=== PATIENT | female | born 2000 | race Caucasian/White ===

== ENCOUNTER 2023-01-07 20:31 | Emergency (ER) | payer MEDICAID, SELFPAY ==
[2023-01-07 20:43] VITALS: BP 128/78; PULSE 97; RESP 18; TEMP 37; O2SAT 97; BMI 27.4
--- NOTE | 2023-01-07 20:57 | ED.GENADUL1 ---
HPI - General Adult General Chief complaint: Overdose Stated complaint: strep throat positive thinks she took too much Tyl Time Seen by Provider: 01/07/23 20:51 Source: patient Mode of arrival: walk-in History of Present Illness HPI narrative: Patient is a 22-year-old female who presents to the emergency department with concern that she may have overdosed on Tylenol accidentally. She states she was diagnosed with strep throat this morning by an outpatient strep screen. She states for the last two days she has been taking Tylenol every three hours and has been taking 2-3 tablets of the 500 mg tabs. She states she has taken four doses of Tylenol today, most recent dosage was six hours ago. She guesses that she may have taken 4500mg-6000mg today. She was seen at the [place] emergency department earlier today but states they did not do any testing and she is very concerned because she has had nausea and vomiting as well as body aches. She has been having symptoms of strep throat for the last two days, she is not concerned for . She reports some diffuse upper abdominal pain. Related Data Previous Rx's Medication Instructions Recorded ondansetron 4 mg disintegrating 4 mg PO Q6H PRN nausea and 01/07/23 tablet vomiting #12 tabs Allergies Allergy/AdvReac Type Severity Reaction Status Date / Time No Known Drug Allergies Allergy Verified 01/07/23 20:51 Review of Systems ROS Constitutional Denies: fever or chills Ears, nose, mouth, and throat Reports: throat pain Cardiovascular Denies: chest pain Respiratory Denies: shortness of breath or cough Gastrointestinal Reports: abdominal pain, nausea and vomiting Musculoskeletal Denies: back pain Integumentary/Breast Denies: rash Neurological Denies: headache Hematologic/Lymphatic Denies: easy bruising [facility] Social History Smoking status: Current every day smoker Exam Narrative Exam Narrative: Gen.: Awake, alert, in no distress Head: Normocephalic, atraumatic ENT: Moist mucous membranes Respiratory: No respiratory distress, lungs clear bilaterally Cardio: Regular rate and rhythm Gastrointestinal: Abdomen is soft, nondistended and mildly tender to palpation in the bilateral upper abdomen Extremities: Moves extremities equally, no injuries noted Psych: Normal mood and affect Neuro: No focal neuro deficit Skin: Warm, dry, intact Constitutional Vital Signs, click to edit/add: Last Vital Signs Temp 98.6 F 01/07/23 20:43 Pulse 97 H 01/07/23 20:43 Resp 18 01/07/23 20:43 BP 128/78 01/07/23 20:43 Pulse Ox 97 01/07/23 20:43 O2 Del Method Room Air 01/07/23 20:43 Course Vital Signs Vital signs: Vital Signs Temperature 98.6 F 01/07/23 20:43 Pulse Rate 97 H 01/07/23 20:43 Respiratory Rate 18 01/07/23 20:43 Blood Pressure 128/78 01/07/23 20:43 Pulse Oximetry 97 01/07/23 20:43 Oxygen Delivery Method Room Air 01/07/23 20:43 Temperature 98.6 F 01/07/23 20:43 Pulse Rate 97 H 01/07/23 20:43 Respiratory Rate 18 01/07/23 20:43 Blood Pressure 128/78 01/07/23 20:43 Pulse Oximetry 97 01/07/23 20:43 Oxygen Delivery Method Room Air 01/07/23 20:43 Medical Decision Making MDM Narrative Medical decision making narrative: Case was discussed with poison control, labs and EKG were obtained. Patient was treated with Zofran for nausea. She had no episodes of emesis in the emergency department. Vital signs are stable. LFTs, electrolytes, kidney function are all within normal limits. Patient has no salicylates or acetaminophen in her system on blood labs. Case was again discussed with poison control and there is no further treatment needed. Patient will be discharged home with Zofran as needed. A dose of Decadron was given prior to discharge. Return to the Emergency Room if symptoms change or worsen. Medical Records Medical records reviewed: Yes I reviewed the patient's medical records Lab Data Lab results reviewed: Yes I reviewed the patient's lab results Labs: Lab Results 01/07/23 Range/Units 21:14 WBC 20.7 H (4.0-11.0) 10^3/uL RBC 4.62 (4.20-5.40) 10^6/uL Hgb 13.8 (12.0-16.0) g/dL Hct 41.8 (36.0-48.0) % MCV 90.5 (81.0-99.0) fL MCH 29.9 (26.7-34.0) pg MCHC 33.0 (29.9-35.2) g/dL RDW 12.9 (11.0-15.0) % Plt Count 455 H (150-450) 10^3/uL MPV 9.2 L (9.5-13.5) fL Neut % (Auto) 95.5 H (43.0-75.0) % Lymph % (Auto) 2.2 L (20.5-60.0) % [place] % (Auto) 1.7 (1.7-12.0) % Eos % (Auto) 0.0 L (0.9-7.0) % Baso % (Auto) 0.1 L (0.2-2.0) % Neut # (Auto) 19.8 H (1.4-6.5) 10^3/uL Lymph # (Auto) 0.5 L (1.2-3.8) 10^3/uL [place] # (Auto) 0.4 (0.3-0.8) 10^3/uL Eos # (Auto) 0.0 (0.0-0.7) 10^3/uL Baso # (Auto) 0.0 (0.0-0.1) 10^3/uL Abs Immat Gran (auto) 0.10 H (0.00-0.03) 10^3/uL Imm/Tot Granulo (auto) 0.5 (0.0-0.5) % Sodium 136 (136-145) mmol/L Potassium 3.6 (3.5-5.1) mmol/L Chloride 101 (98-107) mmol/L Carbon Dioxide 23.3 (21.0-32.0) mmol/L Anion Gap 15.3 BUN 4.0 L (7.0-18.0) mg/dL Creatinine 0.72 (0.55-1.02) mg/dL Est GFR ( Amer) >60 (>=60) Est GFR (Non-Af Amer) >60 (>=60) BUN/Creatinine Ratio 5.6 Glucose 117 H (74-106) mg/dL Calcium 9.5 (8.5-10.1) mg/dL Total Bilirubin 1.0 (0.2-1.0) mg/dL AST 15 (15-37) U/L ALT 21 (14-59) U/L Alkaline Phosphatase 72 (46-116) U/L Total Protein 8.4 H (6.4-8.2) g/dL Albumin 4.3 (3.4-5.0) g/dL Globulin 4.1 g/dL Albumin/Globulin Ratio 1.0 Serum HCG, Qual Negative (NEGATIVE) Salicylates <2.8 (<=19.9) mg/dL Acetaminophen <2.0 L (10.0-30.0) ug/mL ECG Data Attestation: I personally reviewed and interpreted this ECG as follows: (Normal sinus rhythm at a rate of ninety-nine, no acute ST elevation or ectopy. EKG reviewed by attending physician) Discharge Plan Discharge Chief Complaint: Overdose Clinical Impression: Drug ingestion, accidental Patient Disposition: Home, Self-Care Time of Disposition Decision: 21:57 Condition: Good Prescriptions / Home Meds: New ondansetron 4 mg tablet,disintegrating 4 mg PO Q6H PRN (Reason: nausea and vomiting) Qty: 12 0RF Instructions: Ibuprofen (By mouth), Strep Throat (ED), Acute Nausea and Vomiting (ED) Stand Alone Forms: Portal Instructions Referrals: Physician,Non-Staff, MD [Primary Care Provider] - 1 week
--- NOTE | 2023-01-07 21:07 | ECG_ITS ---
[facility] Test Date: 2023-01-07 Pat Name: CARYN JERRY Department: Room: - Gender: Female Access Clinician: : [id number] Requested By: [id number] Order Number: [id number] Reading MD: TONY SINCLAIR Measurements Intervals [place] Rate: 100 P: 62 UT: 136 QRS: 61 QRSD: 86 T: 56 QT: 344 QTc: 400 Interpretive Statements 1100 Sinus tachycardia 9110 normal ECG No previous ECG available for comparison Electronically Signed On 01-08-2023 7:05:09 EDT by TONY SINCLAIR
--- NOTE | 2023-01-07 21:10 | PC.NURSE ---
Patient thinks she might have accidently overdosed on tylenol. patient was recently seen at [facility] around 2pm for the same thing. she was diagnosed with strep throat this morning. patient has been taking 1000-1500mg of Tylenol every 3 hours for pain in throat with last dose being around 2pm. patient c/o abdomiinal pain, and vomiting. states she has not been able to eat much since having the strep throat. patient believes she took 4 doses in the last 24 hours. would like a second opinion. patient states abdominal pain does feel better since being seen this morning. poison control contacted. recommends patient have cmp, tylenol level, and ekg done.
[2023-01-07 21:24] LABS: Basophils Percent Auto 0.1 % (0.2-2.0); Hematocrit 41.8 % (36.0-48.0); Hemoglobin 13.8 g/dL (12.0-16.0); Immature Granulocytes Pct Auto 0.5 % (0.0-0.5); Lymphocytes Absolute Auto 0.5 10^3/uL (1.2-3.8); Lymphocytes Percent Auto 2.2 % (20.5-60.0); Mean Corpuscular Hemoglobin 29.9 pg (26.7-34.0); Mean Corpuscular Volume 90.5 fL (81.0-99.0); Mean Platelet Volume 9.2 fL (9.5-13.5); Monocytes Absolute Auto 0.4 10^3/uL (0.3-0.8); Monocytes Percent Auto 1.7 % (1.7-12.0); Neutrophils Absolute Auto 19.8 10^3/uL (1.4-6.5); Neutrophils Percent Auto 95.5 % (43.0-75.0); Platelet Count 455 10^3/uL (150-450); Red Blood Count 4.62 10^6/uL (4.20-5.40); Red Cell Distribution Width 12.9 % (11.0-15.0); White Blood Count 20.7 10^3/uL (4.0-11.0)
[2023-01-07] MEDS: ONDANSETRON 4 MG RAPDIS TABLET SL (21:25)
[2023-01-07 21:33] LABS: HCG Qualitative NEGATIVE (NEGATIVE)
[2023-01-07 21:42] LABS: Alanine Aminotransferase 21 U/L (14-59); Albumin Level 4.3 g/dL (3.4-5.0); Alkaline Phosphatase 72 U/L (46-116); Anion Gap 15.3; Aspartate Amino Transferase 15 U/L (15-37); BUN Creatinine Ratio 5.6; Calcium 9.5 mg/dL (8.5-10.1); Carbon Dioxide 23.3 mmol/L (21.0-32.0); Chloride 101 mmol/L (98-107); Estimated GFR (African America >60 (>=60); Estimated GFR (Non-African Ame >60 (>=60); Globulin 4.1 g/dL; Glucose 117 mg/dL (74-106); Potassium 3.6 mmol/L (3.5-5.1); Sodium 136 mmol/L (136-145); Total Protein 8.4 g/dL (6.4-8.2)
[2023-01-07 21:45] LABS: Acetaminophen <2.0 ug/mL (10.0-30.0)
[2023-01-07 21:46] LABS: Salicylate <2.8 mg/dL (<=19.9)
[2023-01-07] MEDS: IBUPROFEN 600 MG TABLET PO (22:12)
[2023-01-07] MEDS: DEXAMETHASONE SODIUM PHOSPHATE 10 MG/ML VIAL PO (22:12)
== END 2023-01-07 22:00 | disposition home or self-care (01) ==
PROVIDERS: Physician Assistant; Emergency Provider Emergency Medicine
DX: T39.1X1A Poisoning by 4-Aminophenol derivatives, accidental (unintentional), initial encounter (principal); F17.210 Nicotine dependence, cigarettes, uncomplicated
CPT/HCPCS: 36415; 80053; 80179; 80329; 84703; 85025; 93005; 99284; J1100

== ENCOUNTER 2023-01-11 23:27 | Emergency (ER) | payer MEDICAID, SELFPAY ==
[2023-01-11 23:33] VITALS: BP 127/93; PULSE 103; RESP 16; TEMP 36.8; O2SAT 99; BMI 27.4
--- NOTE | 2023-01-11 23:58 | ED_ITS ---
HPI - Ear Problem General Chief complaint: Ear Stated complaint: LEFT EAR PAIN Time Seen by Provider: 01/11/23 23:50 Source: patient Mode of arrival: walk-in Limitations: no limitations History of Present Illness HPI Narrative: has been on cephalexin since last week for strep infection. The strep infection feels better but now has left ear pain and pressure. no dizziness or nausea. MD Complaint: Reports ear pain Related Data Home Medications Medication Instructions Recorded Confirmed albuterol sulfate 90 mcg/actuation 2 puff inhalation Q6H PRN 01/11/23 01/11/23 aerosol inhaler (Ventolin HFA) shortness of breath or wheezing cephalexin 500 mg capsule 500 mg PO Q8H 01/11/23 01/11/23 Previous Rx's Medication Instructions Recorded ondansetron 4 mg disintegrating 4 mg PO Q6H PRN nausea and 01/07/23 tablet vomiting #12 tabs Allergies Allergy/AdvReac Type Severity Reaction Status Date / Time No Known Drug Allergies Allergy Verified 01/11/23 23:37 Review of Systems ROS Status of ROS 10 or more systems reviewed and unremarkable except as noted in history and below [facility] Social History Smoking status: Current every day smoker Exam Constitutional Vital Signs, click to edit/add: Last Vital Signs Temp 98.3 F 01/11/23 23:33 Pulse 103 H 01/11/23 23:33 Resp 16 01/11/23 23:33 BP 127/93 H 01/11/23 23:33 Pulse Ox 99 01/11/23 23:33 O2 Del Method Room Air 01/11/23 23:33 Common normals: no apparent distress, average body habitus, oriented x3, healthy appearing and alert HENPA Common normals: normocephalic Other: left TM bulging and red Eye Common normals: PERRL, EOMs intact bilaterally, conjunctivae normal and no scleral icterus Respiratory Common normals: normal respiratory effort, no retractions and no use of accessory muscles Cardio Common normals: regular rate, regular rhythm, S1 normal heart sound and S2 normal heart sound GI Common normals: Normal to inspection, nondistended, normoactive bowel sounds present and soft to palpation Extremity Common normals: normal to inspection and full ROM Neuro Common normals: oriented x3, CN's II-XII intact bilaterally, moves all extremities and no focal motor deficits Psych Appearance: grossly normal Course Vital Signs Vital signs: Vital Signs Temperature 98.3 F 01/11/23 23:33 Pulse Rate 103 H 01/11/23 23:33 Respiratory Rate 16 01/11/23 23:33 Blood Pressure 127/93 H 01/11/23 23:33 Pulse Oximetry 99 01/11/23 23:33 Oxygen Delivery Method Room Air 01/11/23 23:33 Temperature 98.3 F 01/11/23 23:33 Pulse Rate 103 H 01/11/23 23:33 Respiratory Rate 16 01/11/23 23:33 Blood Pressure 127/93 H 01/11/23 23:33 Pulse Oximetry 99 01/11/23 23:33 Oxygen Delivery Method Room Air 01/11/23 23:33 Medical Decision Making MDM Narrative Medical decision making narrative: presents with left ear pain. Found to have otitis media. Given dose of Augmentin and advised to d/c Cephalexin she was on for strep throat. her throat is feeling better. She is to follow up with her doctor in a couple of days. No headache or dizziness Discharge Plan Discharge Chief Complaint: Ear Clinical Impression: Otitis media Patient Disposition: Home, Self-Care Prescriptions / Home Meds: No Action albuterol sulfate [Ventolin HFA] 90 mcg/actuation HFA aerosol inhaler 2 puff INHALATION Q6H PRN (Reason: shortness of breath or wheezing) cephalexin 500 mg capsule 500 mg PO Q8H ondansetron 4 mg tablet,disintegrating 4 mg PO Q6H PRN (Reason: nausea and vomiting) Qty: 12 0RF Instructions: Ear Infection (ED) Additional Instructions: follow up with your doctor in a couple of days for recheck. discontinue Cephalexin. Stand Alone Forms: Portal Instructions Referrals: Physician,Non-Staff, MD [Primary Care Provider] - 1 week
[2023-01-12] MEDS: AMOXICILLIN/POTASSIUM CLAV 1 TAB TABLET PO (00:08)
== END 2023-01-12 00:22 | disposition home or self-care (01) ==
PROVIDERS: Emergency Provider Internal Medicine
DX: H66.92 Otitis media, unspecified, left ear (principal); F17.210 Nicotine dependence, cigarettes, uncomplicated
CPT/HCPCS: 99283

== ENCOUNTER 2023-03-09 12:32 | Emergency (ER) | payer MEDICAID, SELFPAY ==
[2023-03-09 12:35] VITALS: BP 131/89; PULSE 91; RESP 18; TEMP 36.6; O2SAT 100; BMI 29.2
[2023-03-09 12:57] LABS: Basophils Absolute Auto 0.1 10^3/uL (0.0-0.1); Basophils Percent Auto 0.8 % (0.2-2.0); Eosinophils Absolute Auto 0.2 10^3/uL (0.0-0.7); Hematocrit 39.1 % (36.0-48.0); Hemoglobin 12.4 g/dL (12.0-16.0); Immature Granulocytes Abs Auto 0.02 10^3/uL (0.00-0.03); Immature Granulocytes Pct Auto 0.3 % (0.0-0.5); Lymphocytes Absolute Auto 1.9 10^3/uL (1.2-3.8); Mean Corpuscular HGB Conc 31.7 g/dL (29.9-35.2); Mean Corpuscular Hemoglobin 29.5 pg (26.7-34.0); Mean Corpuscular Volume 93.1 fL (81.0-99.0); Mean Platelet Volume 9.3 fL (9.5-13.5); Monocytes Absolute Auto 0.5 10^3/uL (0.3-0.8); Monocytes Percent Auto 7.2 % (1.7-12.0); Neutrophils Absolute Auto 4.8 10^3/uL (1.4-6.5); Neutrophils Percent Auto 63.7 % (43.0-75.0); Platelet Count 475 10^3/uL (150-450); White Blood Count 7.5 10^3/uL (4.0-11.0)
[2023-03-09 13:20] LABS: Anion Gap 11.5; BUN Creatinine Ratio 16.5; Calcium 8.5 mg/dL (8.5-10.1); Carbon Dioxide 25.1 mmol/L (21.0-32.0); Chloride 106 mmol/L (98-107); Estimated GFR (African America >60 (>=60); Estimated GFR (Non-African Ame >60 (>=60); Glucose 80 mg/dL (74-106); HCG Quantitative 119 mIU/mL; Potassium 3.6 mmol/L (3.5-5.1); Sodium 139 mmol/L (136-145)
--- NOTE | 2023-03-09 13:47 | ED.PREGNANC1 ---
HPI - General Chief complaint: OB/Uterine Contractions Stated complaint: ISSUES 4-5 WEEKS Time Seen by Provider: 03/09/23 12:40 Source: patient Mode of arrival: walk-in History of Present Illness HPI Narrative: 23-year-old female two para one presents for light pink bleeding. Two days ago she was at another hospital and had a negative ultrasound and a hCG titer of sixty-seven. She doesn't complain of pain or cramping and the bleeding is much less than a regular period. She was directed here by her [employer] office. No fever or injury. Related Data Home Medications Medication Instructions Recorded Confirmed albuterol sulfate 90 mcg/actuation 2 puff inhalation Q6H PRN 01/11/23 01/11/23 aerosol inhaler (Ventolin HFA) shortness of breath or wheezing cephalexin 500 mg capsule 500 mg PO Q8H 01/11/23 01/11/23 Previous Rx's Medication Instructions Recorded ondansetron 4 mg disintegrating 4 mg PO Q6H PRN nausea and 01/07/23 tablet vomiting #12 tabs Allergies Allergy/AdvReac Type Severity Reaction Status Date / Time No Known Drug Allergies Allergy Verified 01/11/23 23:37 Review of Systems ROS Narrative A ten point review of systems is negative except as noted above. PFSH PFSH Social History Smoking status: Current some day smoker Exam Narrative Exam Narrative: Nurses note and vital signs reviewed and patient is not hypoxic. General: The patient appears well and in no apparent distress. Patient is resting comfortably on cart. Skin: Warm, dry, no pallor noted. There is no rash noted. Head: Normocephalic, atraumatic Eye: Normal conjunctiva, no drainage Ears, Nose, Mouth, and Throat: oral mucosa is moist. Nares patent. Cardiovascular: Regular Rate and Rhythm Respiratory: Patient is in no distress, no accessory muscle use, lungs are clear to auscultation, no wheezing, rales or rhonchi Back: non-tender, no CVA tenderness bilaterally to percussion. GI: soft and nontender Musculoskeletal: The patient has no evidence of calf tenderness, no pitting edema, symmetrical pulses noted bilaterally Neurological: A&O, normal speech Psychiatric: Cooperative Constitutional Vital Signs, click to edit/add: Last Vital Signs Temp 97.8 F 03/09/23 12:35 Pulse 91 H 03/09/23 12:35 Resp 18 03/09/23 12:35 BP 131/89 03/09/23 12:35 Pulse Ox 100 03/09/23 12:35 Course Vital Signs Vital signs: Vital Signs Temperature 97.8 F 03/09/23 12:35 Pulse Rate 91 H 03/09/23 12:35 Respiratory Rate 18 03/09/23 12:35 Blood Pressure 131/89 03/09/23 12:35 Pulse Oximetry 100 03/09/23 12:35 Temperature 97.8 F 03/09/23 12:35 Pulse Rate 91 H 03/09/23 12:35 Respiratory Rate 18 03/09/23 12:35 Blood Pressure 131/89 03/09/23 12:35 Pulse Oximetry 100 03/09/23 12:35 MDM - OB/Uterine Contractions MDM Narrative Medical decision making narrative: today's hCG titer is 119, compared to 67 two days ago but that was at another facility. Case discussed with Dr. De La Cruz and the patient will have repeat titer drawn in two days. This hospital. Follow-up with him. Treatment diagnosis and follow-up were discussed with the patient. At this point I've no clinical suspicion of ectopic . Differential Diagnosis Differential diagnosis: Likely other (, vaginal bleeding and , miscarriage) Medical Records Attestation: I reviewed the patient's medical records. Lab Data Attestation: I reviewed the patient's lab results. Labs: Lab Results 03/09/23 Range/Units 12:50 WBC 7.5 (4.0-11.0) 10^3/uL RBC 4.20 (4.20-5.40) 10^6/uL Hgb 12.4 (12.0-16.0) g/dL Hct 39.1 (36.0-48.0) % MCV 93.1 (81.0-99.0) fL MCH 29.5 (26.7-34.0) pg MCHC 31.7 (29.9-35.2) g/dL RDW 13.0 (11.0-15.0) % Plt Count 475 H (150-450) 10^3/uL MPV 9.3 L (9.5-13.5) fL Neut % (Auto) 63.7 (43.0-75.0) % Lymph % (Auto) 26.0 (20.5-60.0) % [place] % (Auto) 7.2 (1.7-12.0) % Eos % (Auto) 2.0 (0.9-7.0) % Baso % (Auto) 0.8 (0.2-2.0) % Neut # (Auto) 4.8 (1.4-6.5) 10^3/uL Lymph # (Auto) 1.9 (1.2-3.8) 10^3/uL [place] # (Auto) 0.5 (0.3-0.8) 10^3/uL Eos # (Auto) 0.2 (0.0-0.7) 10^3/uL Baso # (Auto) 0.1 (0.0-0.1) 10^3/uL Abs Immat Gran (auto) 0.02 (0.00-0.03) 10^3/uL Imm/Tot Granulo (auto) 0.3 (0.0-0.5) % Sodium 139 (136-145) mmol/L Potassium 3.6 (3.5-5.1) mmol/L Chloride 106 (98-107) mmol/L Carbon Dioxide 25.1 (21.0-32.0) mmol/L Anion Gap 11.5 BUN 16.0 (7.0-18.0) mg/dL Creatinine 0.97 (0.55-1.02) mg/dL Est GFR ( Amer) >60 (>=60) Est GFR (Non-Af Amer) >60 (>=60) BUN/Creatinine Ratio 16.5 Glucose 80 (74-106) mg/dL Calcium 8.5 (8.5-10.1) mg/dL HCG, Quant 119 mIU/mL Blood Type B Positive Discharge Plan Discharge Chief Complaint: OB/Uterine Contractions Clinical Impression: Bleeding in early Patient Disposition: Home, Self-Care Time of Disposition Decision: 13:45 Condition: Good Mode of Transportation: Private Vehicle Prescriptions / Home Meds: No Action albuterol sulfate [Ventolin HFA] 90 mcg/actuation HFA aerosol inhaler 2 puff INHALATION Q6H PRN (Reason: shortness of breath or wheezing) cephalexin 500 mg capsule 500 mg PO Q8H ondansetron 4 mg tablet,disintegrating 4 mg PO Q6H PRN (Reason: nausea and vomiting) Qty: 12 0RF Instructions: Threatened Miscarriage (ED) Additional Instructions: Repeat hCG titer in two days to be drawn here at [facility] as an outpatient Stand Alone Forms: Portal Instructions Referrals: Physician,Non-Staff, MD [Primary Care Provider] - 1 week
== END 2023-03-09 13:53 | disposition home or self-care (01) ==
PROVIDERS: Emergency Provider Emergency Medicine
DX: O20.9 Hemorrhage in early pregnancy, unspecified (principal); O99.331 Smoking (tobacco) complicating pregnancy, first trimester; F17.210 Nicotine dependence, cigarettes, uncomplicated; Z3A.01 Less than 8 weeks gestation of pregnancy; Z79.899 Other long term (current) drug therapy
CPT/HCPCS: 36415; 80048; 84702; 85025; 86900; 86901; 99283

== ENCOUNTER 2023-03-11 13:21 | Outpatient (OUT) | payer MEDICAID, SELFPAY ==
[2023-03-11 14:38] LABS: HCG Quantitative 267 mIU/mL
== END 2023-03-11 13:22 | disposition home or self-care (01) ==
LOC: LAB 13:24
PROVIDERS: PCP Obstetrics & Gynecology; Visit Provider Emergency Medicine
DX: O20.9 Hemorrhage in early pregnancy, unspecified (principal); Z3A.01 Less than 8 weeks gestation of pregnancy
CPT/HCPCS: 36415; 84702

== ENCOUNTER 2023-03-12 16:39 | Emergency (ER) | payer MEDICAID, SELFPAY ==
[2023-03-12 16:44] VITALS: BP 128/85; PULSE 108; RESP 18; TEMP 36.6; O2SAT 98
--- NOTE | 2023-03-12 17:08 | ED.FEMALEGU1 ---
Documented by User: SRAVANTHI Dorado 03/12/23 17:24 HPI - Female Genitourinary General Chief complaint: OB/Uterine Contractions Stated complaint: less then 20-wks, Bleeding Time Seen by Provider: 03/12/23 16:41 Mode of arrival: walk-in Limitations: no limitations History of Present Illness HPI Narrative: patient is a 23-year-old female presents to the Emergency Room in early with concern of vaginal bleeding and returning to work. Based on last menstrual cycle 01/23/23 patient would be seven weeks gestation, however she has had a outpatient ultrasound at [facility] that showed no evidence of per patient and quantitative hCG is sixty-seven. 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 She has not had wearing a tampon or pad. Patient reports having a transvaginal ultrasound several days ago. She has no pelvic pain or vaginal discharge. she denies dysuria, states her main concern is that she is to return to work but still having symptoms that they took her off work for last week. She has an appointment with her MANIPULATIVE THERAPY SPECIALIST on 03/19. Patient states she called their office about returning to work and was told to come to the Emergency Room. Patient states her symptoms have not changed but was told by the security officer that they may do blood work and ultrasound again. Patient's [id number] is at bedside who is also a nurse. MD elicited complaint: Reports vaginal bleeding; Denies pelvic pain Urinary symptoms: Denies Dysuria or Urgency Date of last menstrual period: 01/23/23 Related Data Home Medications Medication Instructions Recorded Confirmed albuterol sulfate 90 mcg/actuation 2 puff inhalation Q6H PRN 01/11/23 01/11/23 aerosol inhaler (Ventolin HFA) shortness of breath or wheezing cephalexin 500 mg capsule 500 mg PO Q8H 01/11/23 01/11/23 Previous Rx's Medication Instructions Recorded ondansetron 4 mg disintegrating 4 mg PO Q6H PRN nausea and 01/07/23 tablet vomiting #12 tabs Allergies Allergy/AdvReac Type Severity Reaction Status Date / Time No Known Drug Allergies Allergy Verified 01/11/23 23:37 Review of Systems ROS Constitutional Denies: fever or chills Eyes Denies: change in vision Cardiovascular Denies: chest pain or palpitations Respiratory Denies: shortness of breath or cough Gastrointestinal Denies: abdominal pain, nausea, vomiting or diarrhea Genitourinary Denies: painful urination, urinary frequency or urinary urgency Musculoskeletal Denies: back pain, neck pain, extremity pain or extremity swelling Integumentary/Breast Denies: rash, itching, redness or skin pain Psychiatric Denies: anxiety or mood swings PFSH PFS Social History Smoking status: Current some day smoker Exam Narrative Exam Narrative: Nurses notes and vital signs reviewed and patient is not hypoxic. General: The patient appears well and in no apparent distress. Patient is resting comfortably on cart. Skin: Warm, dry, no pallor noted. Head: Normocephalic, atraumatic Neck: Supple, trachea mid-line, no tenderness, no lymphadenopathy Eye: Pupils are equal, round and reactive to light, EOMI Ears, Nose, Mouth, and Throat: TM are clear, normal light reflex, oral mucosa is moist, no posterior oropharynx erythema or hypertrophy, uvula is mid-line Cardiovascular: Regular Rate and Rhythm Respiratory: Patient is in no distress, no accessory muscle use, lungs are clear to auscultation, no wheezing, rales or rhonchi. Chest Wall: no tenderness Back: non-tender, no CVA tenderness Musculoskeletal: normal ROM, no tenderness, no swelling GI: Normal bowel sounds, no tenderness to palpation, no masses appreciated. No rebound, guarding, or rigidity noted.abdomen nonsurgical, no suprapubic tenderness or palpable mass Neurological: A&O x4 Psychiatric: Cooperative Constitutional Vital Signs, click to edit/add: Last Vital Signs Temp 97.9 F 03/12/23 16:44 Pulse 108 H 03/12/23 16:44 Resp 18 03/12/23 16:44 BP 128/85 03/12/23 16:44 Pulse Ox 98 03/12/23 16:44 O2 Del Method Room Air 03/12/23 16:44 Course Vital Signs Vital signs: Vital Signs Temperature 97.9 F 03/12/23 16:44 Pulse Rate 108 H 03/12/23 16:44 Respiratory Rate 18 03/12/23 16:44 Blood Pressure 128/85 03/12/23 16:44 Pulse Oximetry 98 03/12/23 16:44 Oxygen Delivery Method Room Air 03/12/23 16:44 Temperature 97.9 F 03/12/23 16:44 Pulse Rate 108 H 03/12/23 16:44 Respiratory Rate 18 03/12/23 16:44 Blood Pressure 128/85 03/12/23 16:44 Pulse Oximetry 98 03/12/23 16:44 Oxygen Delivery Method Room Air 03/12/23 16:44 MDM - Female Genitourinary MDM Narrative Medical decision making narrative: lengthy discussion at bedside as patient is likely very early in her , her climbing quantitative hCGs are promising for but within four weeks. We discussed repeating her Quant again tomorrow which should be two days from her prior draw. Patient adamantly denies any abdominal pain or pelvic pain. She notes the bleeding is only present intermittently with wiping and her blood type is confirmed to be B +, with last quantitative hCG to 267. Patient is having no pelvic pain. We recommend no intercourse pending follow-up with MANIPULATIVE THERAPY SPECIALIST. We discussed indications for ultrasound and should she develop any pain or discomfort she'll immediately return to the Emergency Room. We also discussed other symptoms such as severe nausea or syncopal episode, for increased vaginal bleeding such repair at than hour for three hours straight. Patient verbalized understanding. patient has had no significant change in her symptoms over the past 4-5 days. Ectopic was discussed but does not appear clinically present for increased work up at this time as she is asymptomatic and early in . She will keep her scheduled follow-up. Patient agrees to return to the Emergency Room immediately over the weekend if symptoms worsen. She'll get outpatient quantitative hCG.we discussed staying off work pending follow-up however given how early she is in her her activities at work would not likely contribute to any change in her status, but pelvic rest was discussed and the patient would feel more comfortable staying off work pending reevaluation. The patient is to followup with Dr. De La Cruz on 03/19or to return to the emergency department should any of the signs or symptoms worsen or new symptoms develop. Patient had questions answered. The patient agrees with the following Diagnosis and Treatment plan and the patient will be discharged home. Discharge Plan Discharge Chief Complaint: OB/Uterine Contractions Clinical Impression: Threatened miscarriage in early Patient Disposition: Home, Self-Care Time of Disposition Decision: 17:09 Condition: Good Prescriptions / Home Meds: No Action albuterol sulfate [Ventolin HFA] 90 mcg/actuation HFA aerosol inhaler 2 puff INHALATION Q6H PRN (Reason: shortness of breath or wheezing) cephalexin 500 mg capsule 500 mg PO Q8H ondansetron 4 mg tablet,disintegrating 4 mg PO Q6H PRN (Reason: nausea and vomiting) Qty: 12 0RF Instructions: Threatened Miscarriage (ED) Additional Instructions: off work pending follow-up with MANIPULATIVE THERAPY SPECIALIST Pelvic rest, no intercourse Must return to the Emergency Room if pain develops or bleeding worsens as discussed, three pads an hour for three hours straight Stand Alone Forms: Portal Instructions Referrals: Ulysses De La Cruz DO [Physician] - 1 week [facility] [Primary Care Provider] - 1 week Discharge Date/Time: 03/12/23 17:19 Documented by User: Frederick Sommer MD 03/12/23 18:42 HPI - Female Genitourinary General Chief complaint: OB/Uterine Contractions Stated complaint: less then 20-wks, Bleeding Time Seen by Provider: 03/12/23 16:41 Related Data Home Medications Medication Instructions Recorded Confirmed albuterol sulfate 90 mcg/actuation 2 puff inhalation Q6H PRN 01/11/23 01/11/23 aerosol inhaler (Ventolin HFA) shortness of breath or wheezing cephalexin 500 mg capsule 500 mg PO Q8H 01/11/23 01/11/23 Previous Rx's Medication Instructions Recorded ondansetron 4 mg disintegrating 4 mg PO Q6H PRN nausea and 01/07/23 tablet vomiting #12 tabs Allergies Allergy/AdvReac Type Severity Reaction Status Date / Time No Known Drug Allergies Allergy Verified 01/11/23 23:37 PFSH PFSH Social History Smoking status: Current some day smoker Exam Constitutional Vital Signs, click to edit/add: Last Vital Signs Temp 97.9 F 03/12/23 16:44 Pulse 108 H 03/12/23 16:44 Resp 18 03/12/23 16:44 BP 128/85 03/12/23 16:44 Pulse Ox 98 03/12/23 16:44 O2 Del Method Room Air 03/12/23 16:44 Course Vital Signs Vital signs: Vital Signs Temperature 97.9 F 03/12/23 16:44 Pulse Rate 108 H 03/12/23 16:44 Respiratory Rate 18 03/12/23 16:44 Blood Pressure 128/85 03/12/23 16:44 Pulse Oximetry 98 03/12/23 16:44 Oxygen Delivery Method Room Air 03/12/23 16:44 Temperature 97.9 F 03/12/23 16:44 Pulse Rate 108 H 03/12/23 16:44 Respiratory Rate 18 03/12/23 16:44 Blood Pressure 128/85 03/12/23 16:44 Pulse Oximetry 98 03/12/23 16:44 Oxygen Delivery Method Room Air 03/12/23 16:44 MDM - Female Genitourinary MDM Narrative Medical decision making narrative: lengthy discussion at bedside as patient is likely very early in her , her climbing quantitative hCGs are promising for but within four weeks. We discussed repeating her Quant again tomorrow which should be two days from her prior draw. Patient adamantly denies any abdominal pain or pelvic pain. She notes the bleeding is only present intermittently with wiping and her blood type is confirmed to be B +, with last quantitative hCG to 267. Patient is having no pelvic pain. We recommend no intercourse pending follow-up with MANIPULATIVE THERAPY SPECIALIST. We discussed indications for ultrasound and should she develop any pain or discomfort she'll immediately return to the Emergency Room. We also discussed other symptoms such as severe nausea or syncopal episode, for increased vaginal bleeding such repair at than hour for three hours straight. Patient verbalized understanding. patient has had no significant change in her symptoms over the past 4-5 days. Ectopic was discussed but does not appear clinically present for increased work up at this time as she is asymptomatic and early in . She will keep her scheduled follow-up. Patient agrees to return to the Emergency Room immediately over the weekend if symptoms worsen. She'll get outpatient quantitative hCG.we discussed staying off work pending follow-up however given how early she is in her her activities at work would not likely contribute to any change in her status, but pelvic rest was discussed and the patient would feel more comfortable staying off work pending reevaluation. The patient is to followup with Dr. De La Cruz on 03/19or to return to the emergency department should any of the signs or symptoms worsen or new symptoms develop. Patient had questions answered. The patient agrees with the following Diagnosis and Treatment plan and the patient will be discharged home. I, Dr Sommer, have reviewed the above progress note and course of action in the ER; agree with the above. I have personally seen and evaluated this patient, gone over history and physical, and discussed disposition and treatment plan with the patient. Discharge Plan Discharge Chief Complaint: OB/Uterine Contractions Clinical Impression: Threatened miscarriage in early Patient Disposition: Home, Self-Care Time of Disposition Decision: 17:09 Condition: Good Prescriptions / Home Meds: No Action albuterol sulfate [Ventolin HFA] 90 mcg/actuation HFA aerosol inhaler 2 puff INHALATION Q6H PRN (Reason: shortness of breath or wheezing) cephalexin 500 mg capsule 500 mg PO Q8H ondansetron 4 mg tablet,disintegrating 4 mg PO Q6H PRN (Reason: nausea and vomiting) Qty: 12 0RF Instructions: Threatened Miscarriage (ED) Additional Instructions: off work pending follow-up with MANIPULATIVE THERAPY SPECIALIST Pelvic rest, no intercourse Must return to the Emergency Room if pain develops or bleeding worsens as discussed, three pads an hour for three hours straight Stand Alone Forms: Portal Instructions Referrals: Ulysses De La Cruz DO [Physician] - 1 week [facility] [Primary Care Provider] - 1 week Discharge Date/Time: 03/12/23 17:19
== END 2023-03-12 17:19 | disposition home or self-care (01) ==
PROVIDERS: Emergency Provider Emergency Medicine
DX: O20.0 Threatened abortion (principal); Z3A.01 Less than 8 weeks gestation of pregnancy; O99.331 Smoking (tobacco) complicating pregnancy, first trimester; F17.210 Nicotine dependence, cigarettes, uncomplicated; Z79.899 Other long term (current) drug therapy
CPT/HCPCS: 99283

== ENCOUNTER 2023-03-13 10:55 | Outpatient (OUT) | payer MEDICAID, SELFPAY ==
[2023-03-13 11:25] LABS: HCG Quantitative 136 mIU/mL
== END 2023-03-13 10:56 | disposition home or self-care (01) ==
LOC: LAB 10:56
DX: O20.0 Threatened abortion (principal)
CPT/HCPCS: 36415; 84702

== ENCOUNTER 2023-03-16 15:39 | Outpatient (OUT) | payer MEDICAID, SELFPAY ==
[2023-03-16 16:49] LABS: HCG Quantitative 213 mIU/mL
== END 2023-03-16 15:40 | disposition home or self-care (01) ==
PROVIDERS: Visit Provider Obstetrics & Gynecology
DX: N92.6 Irregular menstruation, unspecified (principal)
CPT/HCPCS: 36415; 84702

== ENCOUNTER 2023-03-19 09:01 | Outpatient (OUT) | payer MEDICAID, SELFPAY ==
--- NOTE | 2023-03-19 09:03 | US_ITS ---
The [address] [address] Patient Name: CARYN JERRY MRN: [id number] date: 2000 Sex: F Assigned Patient Location: US Current Patient Location: US Accession/Order Number: [id number] Exam Date: 03/19/2023 09:03 Report Date: 03/19/2023 15:48 At the request of: MILE RING Procedure: US OB transvaginal EXAMINATION: US OB transvaginal HISTORY: THREATENED RULE OUT RETAINED PRODUCTS. COMPARISON: No relevant comparison available. FINDINGS: GESTATIONAL SAC: Absent YOLK SAC: Absent POLE: Absent CARDIAC: Absent UTERUS: Normal size and appearance. Thin endometrium. OVARIES: Right: Normal. Left: Normal. CERVIX: Closed. CUL-DE-SAC: Normal. OTHER: None. AGE BY LMP: Unknown [place] BY LMP: AGE BY US CRL: Not applicable [place] BY US CRL: US/US OB transvaginal IMPRESSION: 1. No intrauterine or retained products of conception. Electronically authenticated by: DON MEJIA Date: 03/19/2023 15:48
== END 2023-03-19 09:02 | disposition home or self-care (01) ==
LOC: US 09:01
PROVIDERS: Visit Provider Obstetrics & Gynecology
DX: O20.0 Threatened abortion (principal)
CPT/HCPCS: 76817

== ENCOUNTER 2023-06-10 13:55 | Emergency (ER) | payer MEDICAID, SELFPAY ==
--- OUTSIDE RECORDS SUMMARY | 2023-06-10 14:21 | XMS_ITS | CCD ---
Author Name Unknown Address [address] [place] [address] Organization [facility] Care Team Providers Care Store Receiving Clerk Name Role Phone Emery Mitchell Unavailable Unavailable Emery Mitchell Unavailable Unavailable NONE, XXXX Unavailable Unavailable DR MILE RING Attending Unavailable DR MILE RING Consulting Unavailable DR MILE RING Admitting Unavailable Catrachita Sloan Unavailable Medications Current Medications Medication Drug Class(es) Dates Sig (Normalized) Sig (Original) [id number] actuat albuterol 0.09 mg/actuat metered dose inhaler (1 source) beta2-Adrenergic Agonist Start: 08-12-2022 take 2 puff(s) by inhalation four times daily as needed Albuterol Sulfate HFA 108 (90 Base) MCG/ACT 2 puffs Inhalation 4 times a day prn Jul, Active Problems Active Problems Problem Classification Problem Date Documented Date Episodic/Chronic Immunizations and screening for infectious disease (2 sources) Encounter for screening for human papillomavirus (HPV); Translations: [Encounter for screening for infections with a predominantly sexual mode of transmission] Onset: 12-04-2021 Episodic Other female genital disorders (1 source) Other specified noninflammatory disorders of vagina; Translations: [OTH SPEC NONINFLAMMATORY D/O VAGINA] Onset: 12-04-2021 Episodic Other lower respiratory disease (1 source) Personal history of other diseases of the respiratory system Episodic Other screening for suspected conditions (not mental disorders or infectious disease) (4 sources) Encounter for screening for malignant neoplasm of cervix; Translations: [ENC SCREENING MALIG NEOPLASM CERV] Onset: 12-03-2021 Episodic Other upper respiratory disease (1 source) Nasal congestion Episodic Past or Other Problems Problem Classification Problem Date Documented Da te Episodic/Chronic Viral infection (1 source) COVID-19 Results Test Name Value Interpretation Reference Range Facility COVID/FLU RT-PCRon 3 SARS-CoV-2 (COVID-19) RNA NANCY+probe Ql (Unsp spec) Positive [facility] Other COVID/FLU RT-PCR Negative [facility] Other PAP ACOG PANEL 2: 21 to 29on 12-08-2021 . . Normal [facility] Comment on above: Performed By: #### [id number] #### [facility] [address] [place] [address] Dr. Zonia Jay Age Gdln ACOG Testing - [facility] Comment on above: Performed By: #### [id number] #### [facility] [address] [place] [address] Dr. Zonia Jay DIAGNOSIS: Comment [facility] Comment on above: Result Comment: NEGA TIVE FOR INTRAEPITHELIAL LESION OR MALIGNANCY. PREDOMINANCE OF COCCOBACILLI CONSISTENT WITH SHIFT IN VAGINAL DENNIS IS PRESENT. Performed By: #### [id number] #### [facility] [address] [place] [address] Dr. Zonia Jay Methodology: Comment [facility] Comment on above: Result Comment: This liquid based ThinPrep(R) pap test was screened with the use of an image guided system. Performed By: #### [id number] #### [facility] [address] [place] [address] Dr. Zonia Jay Note: Comment [facility] Comment on above: Result Comment: The Pap smear is a screening test designed to aid in the detection of premalignant and malignant conditions of the uterine cervix. It is not a diagnostic procedure and should not be used as the sole means of detecting cervical cancer. Both false-positive and false-negative reports do occur. . Performed By: #### [id number] #### [facility] [address] [place] [address] Dr. Zonia Jay Performed by: Comment Normal [facility] Comment on above: Result Comment: Jovita Barry Service Order Dispatcher (ASCP) Performed By: #### [id number] #### [facility] [address] [place] [address] Dr. Zonia Jay Reflex Criteria: Comment Normal [facility] Comment on above: Result Comment: The HPV DNA reflex criteria were not met with this specimen result therefore, no HPV testing was performed. . Performed By: #### [id number] #### [facility] [address] [place] [address] Dr. Zonia Jay Specimen adequacy: Comment Normal [facility] Comment on above: Result Comment: Sati sfactory for evaluation. Endocervical and/or squamous metaplastic cells (endocervical component) are present. Performed By: #### [id number] #### [facility] [address] [place] [address] Dr. Zonia Jay CHLAMYDIA/GONOCOCCUS NANCY ( AB/URINE/PAPon 12-06-2021 Chlamydia trachomatis, NANCY Negative Normal Negative [facility] Comment on above: Performed By: #### C T/NGNA #### [facility] [address] [place] [address] Dr. Zonia Jay Neisseria gonorrhoeae, NANCY Negative Normal Negative [facility] Comment on above: Performed By: #### C T/NGNA #### [facility] [address] [place] [address] Dr. Zonia Jay VAGINITIS/VAGINOSIS DNA PROB Shawn 12-05-2021 Kavya species Negative Normal Negative [facility] Comment on above: Performed By: #### V AGINT #### [facility] [address] [place] [address] Dr. Zonia Jay Gardnerella vaginalis Positive Abnormal Negative [facility] Comment on above: Performed By: #### V AGINT #### [facility] [address] [place] [address] Dr. Zonia Jay Trichomonas vaginalis Negative Normal Negative [facility] Comment on above: Performed By: #### V AGINT #### [facility] [address] [place] [address] Dr. Zonia Jay Coding Summary.on 12-29-2016 Coding Summary. CODING DATE: 12/29/2016 FINAL [facility] STATUS: Home (Routine DC) PAYOR: Commercial Insurance ADMIT DX: REASON FOR VISIT DX: R56.9 Unspecified convulsions FINAL DX: PRINCIPAL: R56.9 Unspecified convulsions SECONDARY: PROCEDURES DOCTOR NAME DATE NOTE: The code number assigned matches the documented diagnosis and / or procedure in the patient's chart. However, the narrative phrase printed from the coding software may appear abbreviated, or result in slightly different terminology. Coded By: Oly Stone Date Saved: 12/29/2016 03:53 pm Normal [facility] FSPon 12-28-2016 FIBRIN+FIBRINOGEN FRAGMENTS:MCNC:PT :SER:QN: >10 and <40 Abnormal <10 [facility] Comment on above: Result Comment: Resu lts Called To Padmini Carroll ([facility]) By SS And Read Back For Confirmation On 12/28/2016 15:00:43 EDT. Performed By: #### [id number] ####[facility] [id number] [place] [address] Vital Signs Date Time Vital Sign Value Performing Clinician Facility 08-12-2022 12:10-0400 Body height 154.94 cm Catrachita Sloan Other [facility] Other 08-12-2022 12:10-0400 Body mass index (BMI) [Ratio] 26.83 kg/m2 Catrachita Mcnallymond Other [facility] Other 08-12-2022 12:10-0400 Body temperature 99 [degF] Catrachita Mcnallymond Other [facility] Other 08-12-2022 12:10-0400 Body weight 64.41 kg Catrachita Mcnallymond Other [facility] Other 08-12-2022 12:10-0400 Respiratory rate 18 /min Catrachita Mcnallymond Other [facility] Other 08-12-2022 12:10-0400 SaO2% (BldA) [Mass fraction] 97 % Catrachita Sloan Other [facility] Other Encounters Encounter Date Encounter Type Care Provider Facility Start: 08-12-2022 End: 08-12-2022 ambulatory Catrachita Nathalia Other [facility] Other Start: 08-12-2022 Office outpatient vi sit 15 minutes Catrachita Sloan [facility] Start: 12-03-2021 End: 12-03-[address] MILE RING Facility: Start: 12-28-2016 End: 12-29-2016 Ambulatory Emery Mitchell [place] [place] Payers Date Payer Category Payer Unknown 2000 Unknown [id number] 1959 Unknown [id number] Medicaid [id number] Social History Date Type Detail Facility Unknown if ever smoked [facility] Other Sex Assigned At Sex Assigned At Bir th [facility] Other Evaluation note 08-12-2022 Note Date & Type Note Facility 08-12-2022 Evaluation note Encounter Date Diagnosis Assessment Notes Jul, Nasal congestion (ICD-10 - R09.81) Jul, COVID-19 (ICD-10 - U07.1) Discharge Instructions for COVID-19 (Suspected or Confirmed ) material was printed Drink plenty fluids, get plenty of rest. Take Tylenol or Motrin as needed for aches pains or fevers. Continue home medications as prescribed. Follow-up with your family physician if no improvement in 2 to 3 days. You must quarantine for 5 days after the onset of your symptoms of COVID. Jul, History of asthma (ICD-10 - Z87.09) [facility] Other History general Narrative - Reported Note Date & Type Note Facility History general Narrative - Reported Type Medical History asthma Surgical History C section [facility] Other Summary Purpose Family History No Family History Records FoundNo Family History Records Found Advance Directives No Advanced Directives Records FoundNo Advanced Directives Records Found Additional Source Comments INFORMATION SOURCE (unrecogn ized section and content) DATE CREATED AUTHOR 11/17/2017 [employer] [facility] DATE CREATED AUTHOR AUTHOR'S ORGANIZ ATION 12/10/2021 [facility] REASON FOR VISIT (unrecogniz ed section and content) SORE THROAT CHEST PRESSURE C OUGH HOT/COLD CHILLS FOR RECORDS PERTAINING TO PATIENTS WHO ARE OR HAVE BEEN ENROLLED IN A CHEMICAL DEPENDENCY/SUBSTANCEABUSE PROGRAM, SOME INFORMATION MAY BE OMITTED. This clinical summary was aggregated from multiple sources. Caution should be exercised in using it in the provision of clinical care. This summary normalizes information from multiple sources, and as a consequence, information in this document may materially change the coding, format and clinical context of patient data. In addition, data may be omitted in some cases. CLINICAL DECISIONS SHOULD BE BASED ON THE PRIMARY CLINICAL RECORDS. [employer] [facility]. provides no warranty or guarantee of the accuracy or completeness of information in this document.
[2023-06-10 14:36] VITALS: BP 124/78; PULSE 81; RESP 16; TEMP 36.7; O2SAT 100; BMI 26.5
--- NOTE | 2023-06-10 15:10 | ED_ITS ---
HPI - General Adult General Chief complaint: Nausea/Vomiting/Diarrhea Stated complaint: 4 WEEKS Time Seen by Provider: 06/10/23 14:42 Source: patient Mode of arrival: walk-in Limitations: no limitations History of Present Illness HPI narrative: Patient presents with nausea and vomiting. She estimates that she is about 4 weeks . She was prescribed ODT zofran by Dr De La Cruz's office but she admits that she puts the pill on her tongue and then tries to drink,rather than waiting 20 minutes before trying to drink. She is A1 - miscarriage Feb 2023 Related Data Home Medications Medication Instructions Recorded Confirmed albuterol sulfate 90 mcg/actuation 2 puff inhalation Q6H PRN 01/11/23 01/11/23 aerosol inhaler (Ventolin HFA) shortness of breath or wheezing cephalexin 500 mg capsule 500 mg PO Q8H 01/11/23 01/11/23 Previous Rx's Medication Instructions Recorded ondansetron 4 mg disintegrating 4 mg PO Q6H PRN nausea and 01/07/23 tablet vomiting #12 tabs Allergies Allergy/AdvReac Type Severity Reaction Status Date / Time No Known Drug Allergies Allergy Verified 01/11/23 23:37 PFSH PFSH Social History Smoking status: Never smoker Exam Narrative Exam Narrative: Nurses notes and vital signs reviewed and patient is not hypoxic. afebrile General: Well-appearing and in no apparent distress. Skin: Warm, dry, no pallor noted. No rash. Eye: Pupils are equal, round and EOMI. No scleral icterus. Ears, Nose, Mouth, and Throat: Oral mucosa is moist Cardiovascular: Regular Rate and Rhythm without murmur, gallop or rub. Respiratory: No accessory muscle use or respiratory distress. Lungs are clear to auscultation, no wheezing, rales or rhonchi Back: No CVA tenderness GI: Abdomen is soft, non-distended. Normal bowel sounds. No tenderness to palpation. No rebound, guarding, or rigidity noted. Neurological: A&O x4. No cranial nerve dysfunction observed. No truncal ataxia. Moves all extremities. Sensation intact. Psychiatric: Cooperative and interactive. Normal mood and affect. Constitutional Vital Signs, click to edit/add: Last Vital Signs Temp 98.1 F 06/10/23 14:36 Pulse 81 06/10/23 14:36 Resp 16 06/10/23 14:36 BP 124/78 06/10/23 14:36 Pulse Ox 100 06/10/23 14:36 O2 Del Method Room Air 06/10/23 14:36 Course Vital Signs Vital signs: Vital Signs Temperature 98.1 F 06/10/23 14:36 Pulse Rate 81 06/10/23 14:36 Respiratory Rate 16 06/10/23 14:36 Blood Pressure 124/78 06/10/23 14:36 Pulse Oximetry 100 06/10/23 14:36 Oxygen Delivery Method Room Air 06/10/23 14:36 Temperature 98.1 F 06/10/23 14:36 Pulse Rate 81 06/10/23 14:36 Respiratory Rate 16 06/10/23 14:36 Blood Pressure 124/78 06/10/23 14:36 Pulse Oximetry 100 06/10/23 14:36 Oxygen Delivery Method Room Air 06/10/23 14:36 Medical Decision Making MDM Narrative Medical decision making narrative: Peripheral IV established and blood drawn and sent for testing. The patient was ordered to receive normal saline IV fluid and IV Zofran. Urine was also ordered to be sent for testing. Urine and blood test results unremarkable. Patient felt better after ED treatment. She was discharged home. She has plenty of the Zofran ODTs to use at home. Long talk with regards to diet, oral fluid intake, use of Zofran ODT, when to see Dr De La Cruz's office, when to return to the ED. Patient expressed verbal understanding of our discussion. Lab Data Labs: Lab Results 06/10/23 06/10/23 Range/Units 15:00 15:15 WBC 10.8 (4.0-11.0) 10^3/uL RBC 4.25 (4.20-5.40) 10^6/uL Hgb 12.5 (12.0-16.0) g/dL Hct 37.5 (36.0-48.0) % MCV 88.2 (81.0-99.0) fL MCH 29.4 (26.7-34.0) pg MCHC 33.3 (29.9-35.2) g/dL RDW 12.8 (11.0-15.0) % Plt Count 438 (150-450) 10^3/uL MPV 9.6 (9.5-13.5) fL Neut % (Auto) 68.6 (43.0-75.0) % Lymph % (Auto) 19.4 L (20.5-60.0) % Van Zandt % (Auto) 9.2 (1.7-12.0) % Eos % (Auto) 2.0 (0.9-7.0) % Baso % (Auto) 0.6 (0.2-2.0) % Neut # (Auto) 7.4 H (1.4-6.5) 10^3/uL Lymph # (Auto) 2.1 (1.2-3.8) 10^3/uL [place] Zandt # (Auto) 1.0 H (0.3-0.8) 10^3/uL Eos # (Auto) 0.2 (0.0-0.7) 10^3/uL Baso # (Auto) 0.1 (0.0-0.1) 10^3/uL Abs Immat Gran (auto) 0.02 (0.00-0.03) 10^3/uL Imm/Tot Granulo (auto) 0.2 (0.0-0.5) % Sodium 137 (136-145) mmol/L Potassium 3.5 (3.5-5.1) mmol/L Chloride 101 (98-107) mmol/L Carbon Dioxide 25.7 (21.0-32.0) mmol/L Anion Gap 13.8 BUN 11.0 (7.0-18.0) mg/dL Creatinine 0.79 (0.55-1.02) mg/dL Est GFR ( Amer) >60 (>=60) Est GFR (Non-Af Amer) >60 (>=60) BUN/Creatinine Ratio 13.9 Glucose 77 (74-106) mg/dL Calcium 8.5 (8.5-10.1) mg/dL Total Bilirubin 0.5 (0.2-1.0) mg/dL AST 15 (15-37) U/L ALT 18 (14-59) U/L Alkaline Phosphatase 50 (46-116) U/L Total Protein 7.5 (6.4-8.2) g/dL Albumin 3.8 (3.4-5.0) g/dL Globulin 3.7 g/dL Albumin/Globulin Ratio 1.0 Serum HCG, Qual Positive A (NEGATIVE) Urine Color Lt. yellow (YELLOW) Urine Clarity Clear (CLEAR) Urine pH 7.0 (5.0-9.0) Ur Specific Pelsor <=1.005 A (1.005-1.025) Urine Protein Negative (NEG/TRACE) mg/dL Urine Glucose (UA) Negative (NEGATIVE) mg/dL Urine Ketones Negative (NEGATIVE) mg/dL Urine Occult Blood Negative (NEGATIVE) Urine Nitrite Negative (NEGATIVE) Urine Bilirubin Negative (NEGATIVE) Urine Urobilinogen 0.2 (0.2-1.0) EU/dL Ur Leukocyte Esterase Negative (NEGATIVE) Discharge Plan Discharge Chief Complaint: Nausea/Vomiting/Diarrhea Clinical Impression: Vomiting affecting Patient Disposition: Home, Self-Care Time of Disposition Decision: 16:10 Prescriptions / Home Meds: No Action albuterol sulfate [Ventolin HFA] 90 mcg/actuation HFA aerosol inhaler 2 puff INHALATION Q6H PRN (Reason: shortness of breath or wheezing) cephalexin 500 mg capsule 500 mg PO Q8H ondansetron 4 mg tablet,disintegrating 4 mg PO Q6H PRN (Reason: nausea and vomiting) Qty: 12 0RF Instructions: Nausea and Vomiting in (ED) Stand Alone Forms: Portal Instructions Referrals: [facility] [Primary Care Provider] - 1 week
[2023-06-10 15:25] LABS: Basophils Absolute Auto 0.1 10^3/uL (0.0-0.1); Basophils Percent Auto 0.6 % (0.2-2.0); Eosinophils Absolute Auto 0.2 10^3/uL (0.0-0.7); Hematocrit 37.5 % (36.0-48.0); Hemoglobin 12.5 g/dL (12.0-16.0); Immature Granulocytes Abs Auto 0.02 10^3/uL (0.00-0.03); Immature Granulocytes Pct Auto 0.2 % (0.0-0.5); Lymphocytes Absolute Auto 2.1 10^3/uL (1.2-3.8); Lymphocytes Percent Auto 19.4 % (20.5-60.0); Mean Corpuscular HGB Conc 33.3 g/dL (29.9-35.2); Mean Corpuscular Hemoglobin 29.4 pg (26.7-34.0); Mean Corpuscular Volume 88.2 fL (81.0-99.0); Mean Platelet Volume 9.6 fL (9.5-13.5); Monocytes Percent Auto 9.2 % (1.7-12.0); Neutrophils Absolute Auto 7.4 10^3/uL (1.4-6.5); Neutrophils Percent Auto 68.6 % (43.0-75.0); Platelet Count 438 10^3/uL (150-450); Red Blood Count 4.25 10^6/uL (4.20-5.40); Red Cell Distribution Width 12.8 % (11.0-15.0); White Blood Count 10.8 10^3/uL (4.0-11.0)
[2023-06-10 15:26] LABS: Bilirubin Urine NEGATIVE (NEGATIVE); Blood Urine NEGATIVE (NEGATIVE); Clarity Urine CLEAR (CLEAR); Color Urine LT. YELLOW (YELLOW); Glucose Urine UA NEGATIVE (NEGATIVE); Ketones Urine NEGATIVE (NEGATIVE); Leukocyte Esterase Urine NEGATIVE (NEGATIVE); Nitrite Urine NEGATIVE (NEGATIVE); Protein Urine NEGATIVE (NEG/TRACE); Specific Gravity Urine <=1.005 (1.005-1.025); Urobilinogen Urine 0.2 EU/dL (0.2-1.0)
[2023-06-10] MEDS: 0.9 % SODIUM CHLORIDE 1,000 ML 999 ML IV (15:27)
[2023-06-10] MEDS: ONDANSETRON PF 4 MG/2 ML VIAL IV (15:27)
[2023-06-10 15:29] LABS: Urine Microscopic Indicated NO
[2023-06-10 15:37] LABS: HCG Qualitative POSITIVE (NEGATIVE)
[2023-06-10 15:40] LABS: Alanine Aminotransferase 18 U/L (14-59); Albumin Level 3.8 g/dL (3.4-5.0); Alkaline Phosphatase 50 U/L (46-116); Anion Gap 13.8; Aspartate Amino Transferase 15 U/L (15-37); BUN Creatinine Ratio 13.9; Bilirubin Total 0.5 mg/dL (0.2-1.0); Calcium 8.5 mg/dL (8.5-10.1); Carbon Dioxide 25.7 mmol/L (21.0-32.0); Chloride 101 mmol/L (98-107); Estimated GFR (African America >60 (>=60); Estimated GFR (Non-African Ame >60 (>=60); Globulin 3.7 g/dL; Glucose 77 mg/dL (74-106); Potassium 3.5 mmol/L (3.5-5.1); Sodium 137 mmol/L (136-145); Total Protein 7.5 g/dL (6.4-8.2)
== END 2023-06-10 16:29 | disposition home or self-care (01) ==
PROVIDERS: Emergency Provider Emergency Medicine
DX: O26.891 Other specified pregnancy related conditions, first trimester (principal); R11.10 Vomiting, unspecified; Z3A.01 Less than 8 weeks gestation of pregnancy; Z79.899 Other long term (current) drug therapy
CPT/HCPCS: 36415; 80053; 81003; 84703; 85025; 96361; 96374; 99285; J2405

== ENCOUNTER 2023-07-02 10:21 | Outpatient (OUT) | payer MEDICAID, SELFPAY ==
--- NOTE | 2023-07-02 10:24 | US_ITS ---
[address] [address] Patient Name: CARYN JERRY MRN: [id number] date: 2000 Sex: F Assigned Patient Location: [facility] Current Patient Location: [facility] Accession/Order Number: [id number] Exam Date: 07/02/2023 10:24 Report Date: 07/02/2023 11:55 At the request of: MILE RING Procedure: US OB transvaginal EXAMINATION: US OB transvaginal HISTORY: MISSED MENSES COMPARISON: No relevant comparison available. FINDINGS: Lopez intrauterine gestation Gestational sac: 3.53 cm, 8 weeks 5 days CRL: 2.36 cm, 9 weeks 0 days Yolk sac: 4.5 mm Heart rate: 184 bpm Cervix: Closed, 4.2 cm The uterus is normal, anteverted, anteflexed. The ovaries are normal Clinical age: 8 weeks 5 days Clinical [place]: 02/06/2024 Ultrasound age: 9 weeks 0 days Ultrasound [place]: 02/04/2024 US/US OB transvaginal IMPRESSION: Viable lopez intrauterine gestation measuring 9 weeks 0 days Electronically authenticated by: NINFA [place] Date: 07/02/2023 11:55
--- OUTSIDE RECORDS SUMMARY | 2023-07-02 10:24 | XMS_ITS | CCD ---
Author Name Unknown Address [address] [place] [id number] Organization [facility] Care Team Providers Care Fitness Technician Name Role Phone Emery Mitchell Unavailable Unavailable Emery Mitchell Unavailable Unavailable NONE, XXXX Unavailable Unavailable DR MILE DE LA CRUZ Attending Unavailable DR MILE DE LA CRUZ Consulting Unavailable DR MILE DE LA CRUZ Admitting Unavailable Catrachita Sloan Unavailable MILE DE LA CRUZ Attending Unavailable Unavailable Primary Care Provider Unavailabl e Allergies Allergy Classification Reported Allergen(s) Allergy Type Date of Onset Reaction(s) Facility (2 sources) Octacosanol Propensity to adverse reactions 4 [facility] Work Phone: Medications Current Medications Medication Drug Class(es) Dates Sig (Normalized) Sig (Original) [id number] 200 actuat albuterol 0.09 mg/actuat metered dose inhaler (1 source) beta2-Adrenergic Agonist Start: 08-12-2022 take 2 puff(s) by inhalation four times daily as needed Albuterol Sulfate HFA 108 (90 Base) MCG/ACT 2 puffs Inhalation 4 times a day prn Jul, Active metoclopramide 10 mg oral tablet (2 sources) Dopamine-2 Receptor Antagonist Start: 06-22-2023 End: 07-02-2023 metoclopramide (Reglan) 10 MG tablet Indications: Nausea and vomiting, unspecified vomiting type Take 1 tablet (10 mg) by mouth 3 (three) times a day as needed (30 minutes prior to meals) for up to 10 days 1 tablet 1 06/22/2023 07/02/2023 Active Progesterone 200 MG suppository (2 sources) Start: 06-07-2023 End: 07-07-2023 Progesterone 200 MG suppository Indications: History of miscarriage Insert 200 mg into the vagina at bedtime Insert suppository vaginally every night at bedtime until 12 weeks gestation 30 suppository 3 06/07/2023 07/07/2023 Active Completed/Discontinued Medications Medication Drug Class(es) Dates Sig (Normalized) Sig (Original) magnesium oxide 400 mg oral tablet (4 sources) Start: 06-08-2023 End: 06-22-2023 take 1 tablet by mouth in the morning magnesium oxide (Mag-Ox) 400 MG tablet Indications: Cluster headache, not intractable, unspecified chronicity pattern Take 1 tablet (400 mg) by mouth in the morning. 30 tablet 2 06/14/2023 06/22/2023 Discontinued (Other) ondansetron 4 mg disintegrating oral tablet (2 sources) Serotonin-3 Receptor Antagonist Start: 06-07-2023 End: 06-22-2023 take 1 tablet by mouth every six hours as needed for nausea and vomiting and nausea and nausea ondansetron ODT (Zofran-ODT) 4 MG disintegrating tablet Indications: Nausea Take 1 tablet (4 mg) by mouth every 6 (six) hours if needed for nausea or vomiting 30 tablet 3 06/07/2023 06/22/2023 Discontinued (Other) promethazine hydrochloride 12.5 mg oral tablet (2 sources) Phenothiazine Start: 06-14-2023 End: 06-22-2023 take 1 tablet by mouth every six hours as needed for nausea and nausea, then take 1 tablet by mouth every six hours as needed for nausea and nausea promethazine (Phenergan) 12.5 MG tablet Indications: Nausea and vomiting, unspecified vomiting type Take 1 tablet (12.5 mg) by mouth every 6 (six) hours if needed for nausea or vomiting for up to 10 doses Take 1 tablet by mouth every 6 hours as needed for nausea. 40 tablet 2 06/14/2023 06/22/2023 Discontinued (Ineffective) Problems Active Problems Problem Classification Problem Date Documented Date Episodic/Chronic Immunizations and screening for infectious disease (2 sources) Encounter for screening for human papillomavirus (HPV); Translations: [Encounter for screening for infections with a predominantly sexual mode of transmission] Onset: 12-04-2021 Episodic Nausea and vomiting (2 sources) Nausea and vomiting; Translations: [Nausea with vomiting, unspecified] 06-22-2023 Episodic Other female genital disorders (1 source) [...] (COVID-19) RNA NANCY+probe Ql (Unsp spec) Positive [employer] Other COVID/FLU RT-PCR Negative [employer] Other PAP ACOG PANEL 2: 21 to 29on 12-08-2021 . . [facility] Comment on above: Performed By: #### [id number] #### [facility] [address] [place] [address] Dr. Zonia Jay Age Gdln ACOG Testing - Normal [facility] Comment on above: Performed By: #### [id number] #### [facility] [address] [address] [address] Zonia Jay DIAGNOSIS: Comment [facility] Comment on above: Result Comment: NEGA TIVE FOR INTRAEPITHELIAL LESION OR MALIGNANCY. PREDOMINANCE OF COCCOBACILLI CONSISTENT WITH SHIFT IN VAGINAL DENNIS IS PRESENT. Performed By: #### [id number] #### [facility] [address] [address] [address] Zonia Jay Methodology: Comment [facility] Comment on above: Result Comment: This liquid based ThinPrep(R) pap test was screened with the use of an image guided system. Performed By: #### 4 [id number] #### [facility] [address] [place] [address] Dr. Zonia Jay Note: Comment Normal [facility] Comment on above: Result Comment: The Pap smear is a screening test designed to aid in the detection of premalignant and malignant conditions of the uterine cervix. It is not a diagnostic procedure and should not be used as the sole means of detecting cervical cancer. Both false-positive and false-negative reports do occur. . Performed By: #### 4 [id number] #### [facility] [address] [place] [address] Dr. Zonia Jay Performed by: Comment Normal [facility] Comment on above: Result Comment: Jovita Barry Sales Service Coordinator (ASCP) Performed By: #### [id number] #### [facility] [address] [place] [address] Dr. Zonia Jay Reflex Criteria: Comment Normal [facility] Comment on above: Result Comment: The HPV DNA reflex criteria were not met with this specimen result therefore, no HPV testing was performed. . Performed By: #### [id number] #### [facility] [address] [place] [address] Dr. Zonia Jay Specimen adequacy: Comment Normal [facility] Comment on above: Result Comment: Sati sfactory for evaluation. Endocervical and/or squamous metaplastic cells (endocervical component) are present. Performed By: #### 4 [id number] #### [facility] [address] [place] [address] Dr. Zonia Jay CHLAMYDIA/GONOCOCCUS NANCY (SW AB/URINE/PAPon 12-06-2021 Chlamydia trachomatis, NANCY Negative Normal Negative [facility] Comment on above: Performed By: #### C T/NGNA #### [facility] [address] [place] [address] Dr. Zonia Jay Neisseria gonorrhoeae, NANCY Negative Normal Negative [facility] Comment on above: Performed By: #### C T/NGNA #### [facility] [address] [place], [place] [id number] Dr. Zonia Jay VAGINITIS/VAGINOSIS DNA PROB Shawn 12-05-2021 Kavya species Negative Normal Negative [facility] Comment on above: Performed By: #### V AGINT #### [facility] [address] [place] [address] Dr. Zonia Jay Gardnerella vaginalis Positive Abnormal Negative [facility] Comment on above: Performed By: #### V AGINT #### [facility] [address] [address] [address] Zonia Jay Trichomonas vaginalis Negative Normal Negative [facility] Comment on above: Performed By: #### V AGINT #### [facility] [address] [place] [address] Dr. Zonia Jay Coding Summary.on 12-29-2016 Coding Summary. CODING DATE: 12/29/2016 FINAL [facility] STATUS: Home (Routine DC) PAYOR: Commercial [...] Stone Date Saved: 12/29/2016 03:53 pm Normal [facility] FSPon 12-28-2016 FIBRIN+FIBRINOGEN FRAGMENTS:MCNC:PT :SER:QN: >10 and <40 Abnormal <10 [facility] Comment on above: Result Comment: Resu lts Called To Padmini Carroll ([facility]) By SILVESTRE And Read Back For Confirmation On 12/28/2016 15:00:43 EDT. Performed By: #### [id number] ####[facility] [id number] [place] [address] Vital Signs Date Time Vital Sign Value Performing Clinician Facility 06-22-2023 13:27-0500 Body weight 67.04 kg Mile De La Cruz [employer] Work Phone: [facility] 01-30-2024 13:27-0500 Diastolic blood pressure 74 mm[Hg] Imle Dorothy DO Work Phone: [facility] 06-22-2023 13:27-0500 Systolic blood pressure 112 mm[Hg] Mile Dorothy DO Work Phone: [facility] 08-12-2022 12:10-0400 Body height 154.94 cm Catrachita Sloan Other [employer] Other 08-12-2022 12:10-0400 Body mass index (BMI) [Ratio] 26.83 kg/m2 Catrachita Sloan Other [employer] Other 08-12-2022 12:10-0400 Body temperature 99 [degF] Catrachita Sloan Other [employer] Other 08-12-2022 12:10-0400 Body weight 64.41 kg Catrachita Sloan Other [facility] Other 08-12-2022 12:10-0400 Respiratory rate 18 /min Catrachita Sloan Other [employer] Other 08-12-2022 12:10-0400 SaO2% (BldA) [Mass fraction] 97 % Catrachita Sloan Other [employer] Other Encounters Encounter Date Encounter Type Care Provider Facility Start: 06-22-2023 End: 06-22-2023 ambulatory MILE DOROTHY Not Available Start: 06-22-2023 End: 06-22-2023 Office outpatient visit 15 minutes Mile Dorothy DO Work Phone: [facility] Comment on above: Nausea and vomiting, unspecified vomiting type Start: 08-12-2022 End: 08-12-2022 ambulatory Catrachita Mcnallymond Other [employer] Other Start: 08-12-2022 Office outpatient vi sit 15 minutes Catrachita Sloan [facility] Start: 12-03-2021 End: 12-03-[address] MILE DE LA CRUZ Facility: Start: 12-28-2016 End: 12-29-2016 Ambulatory Emery Mitchell Facility:[facility] Plan of Treatment Date Care Activity Detail Author Start: 07-02-2023 End: 07-02-2023 ambulatory 07/02/2023 10:30 AM EST Initial [facility] [address] [place] [id number] [facility] Start: 07-02-2023 End: 07-02-2023 Professional / ancillary services management 07/02/2023 10:00 AM EST Ancillary Procedure [facility] [address] [facility] [place] [id number] [facility] Payers Date Payer Category Payer Medicaid [id number] 2022 [facility] BCBS [place]ICA[place] [id number] 2022-Present [address] [place] [address] [id number] 2016 Unknown 2000 Unknown [id number] 2000 Unknown [id number] 1959 Unknown [id number] Social History Date Type Detail Facility Unknown if ever smoked [employer] Other Sex Assigned At Sex Assigned At Bir th [employer] Other Tobacco smoking stat [facility] Tobacco smoking consumption unknown [facility] Start: 2000 Sex Assigned At Female [facility] Start: 03-12-2023 Gender identity Identifies as female gender (finding) [facility] Start: 03-12-2023 Sexual orientation Heterosexual (finding) [facility] History of Present illness Narrative 06-22-2023 Patsy Trujillo, FELIPE - 06/22/2023 1:10 PM EST Note Date & Type Note Facility 06-22-2023 History of Presen t illness Narrative Reason for Appointment: Patient ID: Sangita Jrery is a 23 y.o. female who presents for Morning Sickness (New OB visit scheduled for 07/02/2023) Patient presents today for Acute Visit appointment. Current Medications: has a current medication list which includes the following prescription(s): metoclopramide and progesterone. Medical History: Active Ambulatory Problems Diagnosis Date Noted No Active Ambulatory Problems Resolved Ambulatory Problems Diagnosis Date Noted No Resolved Ambulatory Problems Past Medical History: Diagnosis Date Eclampsia Family History Problem Relation Name Age of Onset Diabetes Other Other (htn) Other Heart attack Other Social History Tobacco Use Smoking status: Not on file Smokeless tobacco: Not on file Substance Use Topics Alcohol use: Not on file Drug use: Not on file Past Surgical History: Procedure Laterality Date SECTION, LOW TRANSVERSE Allergies Allergen Reactions Seasonal Ic [Octacosanol] Review of Systems: Review of Systems Constitutional: Negative. HENT: Negative. Eyes: Negative. Respiratory: Negative. Cardiovascular: Negative. Gastrointestinal: Positive for nausea and vomiting. Genitourinary: Negative. Musculoskeletal: Negative. Skin: Negative. Neurological: Negative. All other systems reviewed and are negative. Hematological: Negative. Endocrine: Negative. Allergic/Immunologic: Negative. Objective Physical Exam Constitutional: Appearance: Normal appearance. She is well-developed. Cardiovascular: Rate and Rhythm: Normal rate and regular rhythm. Pulmonary: Effort: Pulmonary effort is normal. Breath sounds: Normal breath sounds. Abdominal: General: Bowel sounds are normal. There is no distension. Palpations: Abdomen is soft. Tenderness: There is no abdominal tenderness. There is no guarding or rebound. Musculoskeletal: General: No swelling. Normal range of motion. Right lower leg: No edema. Left lower leg: No edema. Neurological: Mental Status: She is alert and oriented to person, place, and time. Skin: General: Skin is warm and dry. Psychiatric: Mood and Affect: Mood normal. Behavior: Behavior normal. Vitals and nursing note reviewed. Exam conducted with a odd bundle worker present. Vitals: There is no height or weight on file to calculate BMI. BP: 112/74 No LMP recorded. Patient is . Assessment/Plan Encounter Diagnosis Name Primary? Nausea and vomiting, unspecified vomiting type Pt presents very nauseated- rx for reglan faxed to pharmacy. Pt to continue zofran and phenergan. Pt to return for new ob appt. Discussed zofran pump Documented by Patsy Trujillo LPN on behalf of: Mile De La Cruz DO documented in this encounter [facility] Evaluation note 08-12-2022 Note Date & Type [...] Jul, History of asthma (ICD-10 - Z87.09) [employer] Other Evaluation note Note Date & Type Note Facility Evaluation note Diagnosis Nausea and vomiting, unspecified vomiting type Missed menses documented in this encounter [facility] History general Narrative - Reported Note Date & Type Note Facility History general Narrative - Reported Type Medical History asthma Surgical History C section [employer] Other Summary Purpose Family History No Family History Records FoundNo Family History Records FoundNo Family History Records Found Advance Directives No Advanced Directives Records FoundNo Advanced Directives Records FoundNo Advanced Directives Records Found Additional Source Comments INFORMATION SOURCE (unrecogn ized section and content) DATE CREATED AUTHOR 11/17/2017 [employer] [facility] DATE CREATED AUTHOR AUTHOR'S ORGANIZ ATION 12/10/2021 [facility] DATE CREATED AUTHOR AUTHOR'S ORGANIZ ATION 06/23/2023 [facility] EPIC REASON FOR VISIT (unrecogniz ed section and content) Reason Comments Morning Sickness New OB visit schedul ed for 07/02/2023 FOR RECORDS PERTAINING TO PATIENTS WHO ARE [...] BE BASED ON THE PRIMARY CLINICAL RECORDS. [employer] [facility]. provides no warranty or guarantee of the accuracy or completeness of information in this document.
== END 2023-07-02 10:22 | disposition home or self-care (01) ==
LOC: NOMS 10:21
PROVIDERS: Visit Provider Obstetrics & Gynecology
DX: Z34.91 Encounter for supervision of normal pregnancy, unspecified, first trimester (principal); Z3A.09 9 weeks gestation of pregnancy; N92.6 Irregular menstruation, unspecified
CPT/HCPCS: 76817

== ENCOUNTER 2023-08-23 20:36 | Outpatient (REF) | payer MEDICAID, SELFPAY ==
--- OUTSIDE RECORDS SUMMARY | 2023-08-23 20:40 | XMS_ITS | CCD ---
Author Organization [facility] Care Team Providers Care Media Analytics Manager Name Role Phone Emery Mitchell Unavailable Unavailable Emery Mitchell Unavailable Unavailable NONE, XXXX Unavailable Unavailable DR MILE DE LA CRUZ Attending Unavailable DR MILE DE LA CRUZ Consulting Unavailable DR MILE DE LA CRUZ Admitting Unavailable Catrachita Sloan Unavailable Unavailable Primary Care Provider Unavailabl e MILE DE LA CRUZ Attending Unavailable Allergies Allergy Classification Reported Allergen(s) Allergy Type Date of Onset Reaction(s) Facility (3 sources) Octacosanol Propensity to adverse reactions 4 [facility] Work Phone: Medications Current Medications Medication Drug Class(es) Dates Sig (Normalized) Sig (Original) 200 actuat albuterol 0.09 mg/actuat dry powder inhaler (3 sources) beta2-Adrenergic Agonist Start: 06-28-2023 End: 07-01-2024 take 2 puff(s) by inhalation every four hours for wheezing albuterol (ProAir RespiClick) 90 mcg/act breath-activated inhaler Indications: Active asthma ([facility]) Inhale 2 puffs every 4 (four) hours if needed for wheezing 1 each 07/02/2023 07/01/2024 Active Start: 08-12-2022 take 2 puff(s) by in halation four times daily as needed Albuterol Sulfate HFA 108 (90 Base) MCG/ACT 2 puffs Inhalation 4 times a day prn Jul, Active azithromycin 250 mg oral tablet (1 source) Macrolide Antimicrobial Start: 07-02-2023 azithromycin (Zithromax Z-Yoel) 250 MG tablet Indications: Upper respiratory tract infection, unspecified type As directed 6 tablet 0 07/02/2023 Active Start: 07-02-2023 azithromycin ( Zithromax Z-Yoel) 250 MG tablet Indications: Upper respiratory tract infection, unspecified type As directed 6 tablet 0 07/02/2023 Active metoclopramide 10 mg oral tablet (3 sources) Dopamine-2 Receptor Antagonist Start: 06-22-2023 End: 07-02-2023 metoclopramide (Reglan) 10 MG tablet Indications: Nausea and vomiting, unspecified vomiting type Take 1 tablet (10 mg) by mouth 3 (three) times a day as needed (30 minutes prior to meals) for up to 10 days 1 tablet 1 06/22/2023 Active Vit-Fe Fumarate-FA ( Plus/Iron) 27-1 MG tablet (1 source) Start: 06-25-2023 End: 06-24-2024 take 1 tablet by mouth in the morning Vit-Fe Fumarate-FA ( Plus/Iron) 27-1 MG tablet Indications: Missed menses Take 1 tablet by mouth in the morning. 30 tablet 11 06/25/2023 06/24/2024 Active Progesterone 200 MG suppository (3 sources) Start: 06-07-2023 End: 07-02-2023 Progesterone 200 MG suppository Indications: History of miscarriage Insert 200 mg into the vagina at bedtime Insert suppository vaginally every night at bedtime until 12 weeks gestation 30 suppository 3 06/07/2023 07/02/2023 Discontinued Start: 06-07-2023 End: 07-07-2023 Progesterone 200 MG supposit ory Indications: History of miscarriage Insert 200 mg into the vagina at bedtime Insert suppository vaginally every night at bedtime until 12 weeks gestation 30 suppository 3 06/07/2023 07/07/2023 Active promethazine hydrochloride 12.5 mg oral tablet (3 sources) Phenothiazine Start: 06-14-2023 End: 07-02-2023 take 1 tablet by mouth every six [...] needed for nausea. 40 tablet 2 06/14/2023 07/02/2023 Discontinued (Ineffective) Completed/Discontinued Medications Medication Drug Class(es) Dates Sig [...] 30 tablet 3 06/07/2023 06/22/2023 Discontinued (Other) Problems Active Problems Problem Classification Problem Date Documented Date Episodic/Chronic Asthma (1 source) Asthma - currently active; Translations: [Unspecified asthma, uncomplicated] 07-02-2023 Chronic Immunizations and screening for infectious disease (2 sources) Encounter for screening for human papillomavirus (HPV); Translations: [Encounter for screening for infections with a predominantly sexual mode of transmission] Onset: 12-04-2021 Episodic Menstrual disorders (1 source) Missed period; Translations: [Irregular menstruation, unspecified] 06-25-2023 Chronic Nausea and vomiting (2 sources) Nausea and [...] respiratory disease (1 source) Nasal congestion Episodic Other upper respiratory infections (1 source) Upper respiratory infection; Translations: [Acute upper respiratory infection, unspecified] 07-02-2023 Episodic Past or Other Problems Problem Classification Problem Date Documented Da te Episodic/Chronic Viral infection (1 source) COVID-19 Results Test Name Value Interpretation Reference Range Facility HCG ( test) Ql (U)o n 07-02-2023 Interpretation and review of laboratory results Abnormal [facility] Preg Test, Ur Positive [facility] Urinalysis macro (dipstick) panel (U)on 07-02-2023 Bilirubin, UA Negative Negative - 4(70) +++ mg/dL [facility] Blood, UA Negative Negative - 50 Jesse/mcL [facility] Clarity, UA Clear [facility] re Color, UA Yellow [facility] Glucose, UA Negative Negative - 1999(110) ++++ mg/dL [facility] Interpretation and review of laboratory results Abnormal [facility] re Ketones, UA Negative Negative - 160(16) ++++ mg/dL [facility] Leukocytes, UA Negative Negative - 500+++ Clinton/mcL [facility] Nitrite, UA Negative Negative - Positive [facility] pH, UA 6.0 5 - 9 [facility] e Protein, UA Negative Negative - 1999(20) ++++ mg/dL [facility] Spec Grav, UA 1.010 1 - 1.03 [facility] Urobilinogen, UA 2.0 0.2 - 12 mg/dL [facility] COVID/FLU RT-PCRon 3 SARS-CoV-2 (COVID-19) RNA NANCY+probe Ql (Unsp spec) Positive [facility] Other COVID/FLU RT-PCR Negative [facility] Other PAP ACOG PANEL 2: 21 to 29on 12-08-2021 . . Normal [facility] Comment on above: Performed By: #### [id number] #### [facility] [address] [place] [address] Dr. Zonia Jay Age Gdln ACOG Testing 21-29 Normal [facility] Comment on above: Performed By: #### [id number] #### [facility] [address] [place] [address] Dr. Zonia Jay DIAGNOSIS: Comment Normal [facility] Comment on above: Result Comment: NEGA TIVE FOR INTRAEPITHELIAL LESION OR MALIGNANCY. PREDOMINANCE OF COCCOBACILLI CONSISTENT WITH SHIFT IN VAGINAL DENNIS IS PRESENT. Performed By: #### [id number] #### [facility] [address] [place] [address] Dr. Zonia Jay Methodology: Comment Normal [facility] Comment on above: Result Comment: This liquid based ThinPrep(R) pap test was screened with the use of an image guided system. Performed By: #### [id number] #### [facility] [address] [place] [address] Dr. Zonia Jay Note: Comment Normal [facility] Comment on above: Result Comment: The Pap smear is a screening test designed to aid in the detection of premalignant and malignant conditions of the uterine cervix. It is not a diagnostic procedure and should not be used as the sole means of detecting cervical cancer. Both false-positive and false-negative reports do occur. . Performed By: #### [id number] #### [facility] [address] [place] [address] Dr. Zonia Jay Performed by: Comment Normal [facility] Comment on above: Result Comment: Jovita Barry Detective Bureau Chief (ASCP) Performed By: #### 4 [id number] #### [facility] [address] [place] [address] Dr. Zonia Jay Reflex Criteria: Comment Normal [facility] Comment on above: Result Comment: The HPV DNA reflex criteria were not met with this specimen result therefore, no HPV testing was performed. . Performed By: #### 4 [id number] #### [facility] [address] [place] [address] Dr. Zonia Jay Specimen adequacy: Comment Normal [facility] Comment on above: Result Comment: Sati sfactory for evaluation. Endocervical and/or squamous metaplastic cells (endocervical component) are present. Performed By: #### 4 [id number] #### [facility] [address] [place] [address] Dr. Zonia Jay CHLAMYDIA/GONOCOCCUS NANCY ( AB/URINE/PAPon 12-06-2021 Chlamydia trachomatis, NANCY Negative Normal Negative [facility] Comment on above: Performed By: #### C T/NGNA #### [facility] [address] [place] [address] Dr. Zonia Jay Neisseria gonorrhoeae, NANCY Negative Normal Negative [facility] Comment on above: Performed By: #### C T/NGNA #### [facility] [address] [place] [address] Dr. Zonia Jay VAGINITIS/VAGINOSIS DNA PROB Shawn 12-05-2021 Kavya species Negative Normal Negative [facility] Comment on above: Performed By: #### V AGINT #### [facility] [address] [place] [address] Dr. Zonia Jay Gardnerella vaginalis Positive Abnormal Negative [facility] Comment on above: Performed By: #### V AGINT #### [facility] [address] [place] [address] Dr. Zonia Jay Trichomonas vaginalis Negative Normal Negative [facility] Comment on above: Performed By: #### V AGINT #### [facility] [address] [place] [address] Dr. Zonia Jay Coding Summary.on 12-29-2016 Coding Summary. CODING DATE: 12/29/2016 FINAL [facility] STATUS: Home (Routine DC) PAYOR: Commercial Insurance [...] Stone Date Saved: 12/29/2016 03:53 pm Normal [facility] FSPon 12-28-2016 FIBRIN+FIBRINOGEN FRAGMENTS:MCNC:PT:S ER:QN: >10 and <40 Abnormal <10 [facility] Comment on above: Result Comment: Resu lts Called To Padmini Carroll ([facility]) By SS And Read Back For Confirmation On 12/28/2016 15:00:43 EDT. Performed By: #### [id number] ####[facility] [address] [place] [address] Vital Signs Date Time Vital Sign Value Performing Clinician Facility 07-02-2023 11:19-0500 Body weight 65.23 kg Mile Dorothy DO Work Phone: [facility] 07-02-2023 11:19-0500 Diastolic blood pressure 70 mm[Hg] Mile Dorothy DO Work Phone: [facility] 07-02-2023 11:19-0500 Systolic blood pressure 104 mm[Hg] Mile Dorothy DO Work Phone: [facility] 06-22-2023 13:27-0500 Body weight 67.04 kg Mile Dorothy DO Work Phone: [facility] 06-22-2023 13:27-0500 Diastolic blood pressure 74 mm[Hg] Mile Dorothy DO Work Phone: [facility] 06-22-2023 13:27-0500 Systolic blood pressure 112 mm[Hg] Mile Dorothy DO Work Phone: [facility] 08-12-2022 12:10-0400 Body height 154.94 cm Catrachita Sloan Other [facility] Other 08-12-2022 12:10-0400 Body mass index (BMI) [Ratio] 26.83 kg/m2 Catrachita Sloan Other [facility] Other 08-12-2022 12:10-0400 Body temperature 99 [degF] Catrachita Sloan Other [facility] Other 08-12-2022 12:10-0400 Body weight 64.41 kg Catrachita Mcnallymond Other [facility] Other 08-12-2022 12:10-0400 Respiratory rate 18 /min Catrachita Nathalia Other [facility] Other 08-12-2022 12:10-0400 SaO2% (BldA) [Mass fraction] 97 % Catrachita Mcnallymond Other [facility] Other Encounters Encounter Date Encounter Type Care Provider Facility Start: 07-02-2023 End: 07-02-2023 ambulatory MILE DOROTHY Not Available Start: 07-02-2023 End: 07-02-2023 Office outpatient visit 5 minutes Mile Dorothy DO Work Phone: [facility] Start: 06-22-2023 End: 06-22-2023 ambulatory MILE DOROTHY Not Available Start: 06-22-2023 End: 06-22-2023 Office outpatient visit 15 minutes Mile Dorothy DO Work Phone: [facility] Comment on above: Nausea and vomiting, unspecified vomiting type Start: 08-12-2022 End: 08-12-2022 ambulatory Catrachita Sloan Other [facility] Other Start: 08-12-2022 Office outpatient vi sit 15 minutes Catrachita Sloan [facility] Start: 12-03-2021 End: 12-03-[address] MILE DE LA CRUZ Facility: Start: 12-28-2016 End: 12-29-2016 Ambulatory Emery Mitchell Facility:[facility] Procedures Date Procedure Procedure Detail Performing Clinician Start: 07-02-2023 Urnls dip stick/tabl et rgnt non-auto w/o micrscp Mile Dorothy DO Work Phone: Plan of Treatment Date Care Activity Detail Author Start: 08-02-2023 End: 08-02-2023 Patient encounter procedure 08/02/2023 10:20 AM EDT Routine [facility] [address] [place] [id number] Mile De La Cruz DO [address] [place], [place] [id number] [facility] Start: 07-05-2023 End: 07-05-2023 Patient encounter procedure 07/05/2023 10:10 AM EST Office Visit [facility] [address] [place] [id number] Bernadette Handy PA [address] [place], [place] [id number] [facility] Start: 07-02-2023 End: 07-02-2024 ABO/Rh ABO/Rh Lab Routine Missed menses Expected: 07/02/2023 (Approximate), Expires: 07/02/2024 [facility] Comment on above: Expected: 07/02/2023 (Approximate), Expires: 07/02/2024 Start: 07-02-2023 End: 07-02-2024 Blood type and Indirect antibody screen panel - Blood Type and screen Lab Routine Missed menses Expected: 07/02/2023 (Approximate), Expires: 07/02/2024 [facility] Work Phone: Comment on above: Expected: 07/02/2023 (Approximate), Expires: 07/02/2024 Start: 07-02-2023 End: 07-02-2024 US Pelvis transvaginal US OB transvaginal Imaging Routine Missed menses Expected: 07/02/2023 (Approximate), Expires: 07/02/2024 [facility] Comment on above: Expected: 07/02/2023 (Approximate), Expires: 07/02/2024 Start: 07-02-2023 End: 07-02-2023 ambulatory 07/02/2023 10:30 AM EST Initial [facility] [address] [place] [address] [facility] Start: 07-02-2023 End: 07-02-2023 Professional / ancillary services management 07/02/2023 10:00 AM EST Ancillary Procedure [facility] [place] [place] [address] [place] [address] [facility] OB Bacteria identified in Urine by Culture Urine culture Microbiology Routine Missed menses Ordered: 07/02/2023 [facility] Comment on above: Ordered: 07/02/2023 CBC W Auto Different ial panel - Blood CBC and differential Lab Routine Missed menses Ordered: 07/02/2023 [facility] Comment on above: Ordered: 07/02/2023 Hemoglobin A1c measurement Hemoglobin A1c Lab Routine Missed menses Ordered: 07/02/2023 [facility] Comment on above: Ordered: 07/02/2023 Hepatitis B virus surface Ag [Presence] in Serum or Plasma by Immunoassay Hepatitis B surface antigen Lab Routine Missed menses Ordered: 07/02/2023 [facility] Comment on above: Ordered: 07/02/2023 Hepatitis C virus Ab [Presence] in Serum or Plasma by Immunoassay Hepatitis C antibody Lab Routine Missed menses Ordered: 07/02/2023 [facility] Comment on above: Ordered: 07/02/2023 HIV-1/HIV-2 antigen/antibody combination immunoassay HIV-1 and HIV-2 antibodies Lab Routine Missed menses Ordered: 07/02/2023 [facility] Comment on above: Ordered: 07/02/2023 Reagin Ab [Presence] in Serum by RPR RPR Lab Routine Missed menses Ordered: 07/02/2023 [facility] Comment on above: Ordered: 07/02/2023 Rubella antibody, IgG Rubella an tibody, IgG Lab Routine Missed menses Ordered: 07/02/2023 [facility] Comment on above: Ordered: 07/02/2023 Payers Date Payer Category Payer Medicaid [id number] 2022 Medicaid [facility] [employer] [place]ICA[place] [id number] 2022-Present [address] [place] [address] [id number] 2016 Unknown 2000 Unknown [id number] 2000 Unknown [id number] 2000 Unknown [id number] 1959 Unknown [id number] Social History Date Type Detail Facility Unknown if ever smoked [facility] Other Sex Assigned At Sex Assigned At Bir th [facility] Other Tobacco smoking stat [facility] Tobacco smoking consumption unknown [facility] Start: 2000 Sex Assigned At Female [facility] Start: 03-12-2023 Gender identity Identifies as female gender (finding) [facility] Start: 03-12-2023 Sexual orientation Heterosexual (finding) [facility] History of Present illness Narrative 07-02-2023 Melani Tabares LPN - 07/02/2023 10:30 AM EST Note Date & Type Note Facility 07-02-2023 History of Presen t illness Narrative Reason for Appointment: Patient ID: Sangita Friedman is a 23 y.o. female who presents for Initial Visit Patient presents today for a Nurse OB Intake appointment. Patient is Unknown with a Estimated Date of Delivery: None noted. OB History Para Term AB Living 3 1 1 1 1 SAB IAB Ectopic Multiple Live Births 1 1 # Outcome Date GA Lbr Sp/2nd Weight Sex Delivery Anes PTL Lv 3 Current 2 SAB 02/2023 1 Term 12/28/16 6 lb 7 oz M CS-LTranv SIXTO Complications: Seizures (CMS/HCC) Current Medications: has a current medication list which includes the following prescription(s): albuterol, metoclopramide, plus/iron, and azithromycin. Medical History: Active Ambulatory Problems Diagnosis Date [...] TRANSVERSE Allergies Allergen Reactions Seasonal Ic [Octacosanol] Vitals: There is no height or weight on file to calculate BMI. BP: 104/70 No LMP recorded. Patient is . Assessment/Plan Diagnoses and all orders for this visit: Missed menses - Type and screen; Future - ABO/Rh; Future - CBC and differential - Hemoglobin A1c - RPR - Rubella antibody, IgG - Hepatitis B surface antigen - Hepatitis C antibody - HIV-1 and HIV-2 antibodies - Urine culture - US OB transvaginal; Future - POCT , urine manually resulted - POCT urinalysis dipstick manually resulted Active asthma (CMS/HCC) - albuterol (ProAir RespiClick) 90 mcg/act breath-activated inhaler; Inhale 2 puffs every 4 (four) hours if needed for wheezing Upper respiratory tract infection, unspecified type - azithromycin (Zithromax Z-Yoel) 250 MG tablet; As directed Nurse Note: Patient presents today for first OB visit. Patients history has been reviewed in great detail including any potential risks. Patient signed consent forms and patient desires testing in both trimesters. Patient currently has no complaints and has been advised to drink 6-8 glasses of water a day, eat no raw or undercooked meat, and stay away from [facility]. Patient has also been advised to not change litter boxes and eat 6 small meals a day. Patient has been consulted regarding the do's and don'ts of . Patient did have complaints of increased nausea advised will send referral for Zofran pump and to continue oral medications until pump is received. Patient also states URI and was given an antibiotic at this time.Patient was given labs and all questions and concerns were answered. Follow Up: Patient is to return in 4 weeks for routine OB appointment. Follow Up: Patient is to have labs drawn at directed and return to office for initial OB appointment with provider. Patient may call office as needed with any concerns or questions. Nurse Visit Completed by: Melani Tabares LPN documented in this encounter [facility] History of Present illness Narrative 06-22-2023 Patsy Trujillo, WINCH OPERATOR - 06/22/2023 1:10 PM EST Note Date & Type Note Facility 06-22-2023 History of Presen t illness Narrative Reason for Appointment: Patient ID: Sangita Friedman is a 23 y.o. female who presents [...] nursing note reviewed. Exam conducted with a cold type composing machine operator present. Vitals: There is no height or [...] Jul, History of asthma (ICD-10 - Z87.09) [facility] Other Evaluation note Note Date & Type Note Facility Evaluation note Diagnosis Nausea and vomiting, unspecified vomiting type Missed menses documented in this encounter [facility] Evaluation note Note Date & Type Note Facility Evaluation note Diagnosis Missed menses Active asthma ([facility]) Unspecified asthma Upper respiratory tract infection, unspecified type documented in this encounter [facility] History general Narrative - Reported Note Date & Type Note Facility History general Narrative - Reported Type Medical History asthma Surgical History C section [facility] Other Summary Purpose Family History No Family History Records FoundNo Family History Records FoundNo Family History Records Found Advance Directives No Advanced Directives Records FoundNo Advanced Directives Records FoundNo Advanced Directives Records Found Additional Source Comments INFORMATION SOURCE (unrecogn ized section and content) DATE CREATED AUTHOR [facility] 12/10/2021 [facility] DATE CREATED AUTHOR AUTHOR'S ORGANIZ ATION 07/03/2023 [facility] EPIC REASON FOR VISIT (unrecogniz ed section and content) Reason Comments Morning Sickness New OB visit schedul ed for 07/02/2023 Reason Comments Initial Visit FOR RECORDS PERTAINING TO PATIENTS WHO ARE [...] BE BASED ON THE PRIMARY CLINICAL RECORDS. [employer] provides no warranty or guarantee of the accuracy or completeness of information in this document.
[2023-08-27 19:07] LABS: Age Gdln ACOG Testing Note (.); IGP, rfx Aptima HPV ASCU Note (.)
== END 2023-08-23 20:37 | disposition home or self-care (01) ==
LOC: LAB 20:36
PROVIDERS: Visit Provider Obstetrics & Gynecology
DX: Z01.419 Encounter for gynecological examination (general) (routine) without abnormal findings (principal)
CPT/HCPCS: G0145

== ENCOUNTER 2023-09-21 12:56 | Outpatient (OUT) | payer MEDICAID, SELFPAY ==
--- NOTE | 2023-09-21 | US_ITS ---
[address] [address] Patient Name: CARYN JERRY MRN: [id number] date: 2000 Sex: F Assigned Patient Location: [facility] Current Patient Location: [facility] Accession/Order Number: [id number] Exam Date: 09/21/2023 13:01 Report Date: 09/21/2023 14:20 At the request of: MILE RING Procedure: US OB anatomy EXAMINATION: US OB anatomy, US OB cervical length HISTORY: ANATOMY COMPARISON: No relevant comparison available. TECHNIQUE: Transabdominal sonographic examination was performed for obstetrical and evaluation. FINDINGS: Number: 1 Heart Rate: 153.0 bpm H.B. /min Amniotic Fluid Volume: Subjectively normal position: Cephalic presentation, longitudinal lie Placental Location: POSTERIOR , placental edge 5.2 cm from the cervical os Cervix Length: 4.3 cm , closed Normal anatomy: Lateral ventricles, cerebellum, posterior fossa, nose, lips, orbits, four-chamber heart, RVOT, LVOT, diaphragm, stomach, kidneys, abdominal cord insertion, bladder, umbilical arteries, three-vessel cord, spine, extremities BIOMETRY: BPD: 4.6 cm 19 weeks 6 days , 40% HC: 17.6 cm 20 weeks 1 days, 39% AC: 15.5 cm 20 weeks 5 days, 62% FL: 3.5 cm 20 weeks 6 days , 68% EFW:368.7 grams; 13 ounces, 75% FL/AC: 22.3 FL/BPD: 75.0 HC/AC: 1.1 GESTATIONAL AGE: Age by EDC: 20 weeks 1 days [place] by EDC: 02/07/2024 Age by current US: 20 weeks 3 days [place] by current US: 02/05/2024 US/US OB anatomy IMPRESSION: Normal anatomy scan Closed cervix measuring 4.3 cm in length *Reference: [employer] Practice Guideline for the performance of Obstetric Ultrasound Examinations, February 21, 2007. Electronically authenticated by: NINFA [place] Date: 09/21/2023 14:20
--- NOTE | 2023-09-21 13:00 | US_ITS ---
[address] [address] Patient Name: CARYN JERRY MRN: [id number] date: 2000 Sex: F Assigned Patient Location: [facility] Current Patient Location: [facility] Accession/Order Number: [id number] Exam Date: 09/21/2023 13:01 Report Date: 09/21/2023 14:20 At the request of: MILE RING Procedure: US OB cervical length EXAMINATION: US OB anatomy, US OB cervical length HISTORY: ANATOMY COMPARISON: No relevant comparison available. TECHNIQUE: Transabdominal sonographic examination was performed for obstetrical and evaluation. FINDINGS: Number: 1 Heart Rate: 153.0 bpm H.B. /min Amniotic Fluid Volume: Subjectively normal position: Cephalic presentation, longitudinal lie Placental Location: POSTERIOR , placental edge 5.2 cm from the cervical os Cervix Length: 4.3 cm , closed Normal anatomy: Lateral ventricles, cerebellum, posterior fossa, nose, lips, orbits, four-chamber heart, RVOT, LVOT, diaphragm, stomach, kidneys, abdominal cord insertion, bladder, umbilical arteries, three-vessel cord, spine, extremities BIOMETRY: BPD: 4.6 cm 19 weeks 6 days , 40% HC: 17.6 cm 20 weeks 1 days, 39% AC: 15.5 cm 20 weeks 5 days, 62% FL: 3.5 cm 20 weeks 6 days , 68% EFW:368.7 grams; 13 ounces, 75% FL/AC: 22.3 FL/BPD: 75.0 HC/AC: 1.1 GESTATIONAL AGE: Age by EDC: 20 weeks 1 days [place] by EDC: 02/07/2024 Age by current US: 20 weeks 3 days [place] by current US: 02/05/2024 US/US OB cervical length IMPRESSION: Normal anatomy scan Closed cervix measuring 4.3 cm in length *Reference: [facility] Practice Guideline for the performance of Obstetric Ultrasound Examinations, February 21, 2007. Electronically authenticated by: NINFA [place] Date: 09/21/2023 14:20
--- OUTSIDE RECORDS SUMMARY | 2023-09-21 13:18 | XMS_ITS | CCD ---
Author Organization [facility] Care Team Providers Care Claims Technician Name Role Phone Emery Mitchell Unavailable Unavailable Emery Mitchell Unavailable Unavailable NONE, XXXX Unavailable Unavailable DR MILE DE LA CRUZ Attending Unavailable DR MILE DE LA CRUZ Consulting Unavailable DR MILE DE LA CRUZ Admitting Unavailable Catrachita Sloan Unavailable Unavailable Primary Care Provider UnavailMILE Irby Attending Unavailable MILE DE LA CRUZ Attending Unavailable Allergies Allergy Classification Reported Allergen(s) Allergy Type Date of Onset Reaction(s) Facility (3 sources) Octacosanol Propensity to adverse reactions 4 [facility] Healthcare Work Phone: Medications Current Medications Medication Drug Class(es) Dates Sig (Normalized) Sig (Original) 200 actuat albuterol 0.09 mg/actuat dry powder inhaler (3 sources) beta2-Adrenergic Agonist Start: 06-28-2023 End: 07-01-2024 take 2 puff(s) by inhalation every four hours for wheezing albuterol (ProAir RespiClick) 90 mcg/act breath-activated inhaler Indications: Active asthma ([facility]) Inhale 2 puffs every 4 (four) hours [...] Interpretation and review of laboratory results Abnormal [facility] re Preg Test, Ur Positive [facility] Urinalysis macro (dipstick) panel (U)on 07-02-2023 Bilirubin, UA Negative Negative - 4(70) +++ mg/dL [facility] Blood, UA Negative Negative - 50 Jesse/mcL [facility] Clarity, UA Clear [facility] re Color, UA Yellow [facility] Glucose, UA Negative Negative - 1999(110) ++++ mg/dL [facility] Interpretation and review of laboratory results Abnormal [facility] re Ketones, UA Negative Negative - 160(16) ++++ mg/dL [facility] Leukocytes, UA Negative Negative - 500+++ Clinton/mcL [facility] Nitrite, UA Negative Negative - Positive [facility] pH, UA 6.0 5 - [facility], [facility]A Negative Negative - 1999(20) ++++ mg/dL [facility] Spec Grav, UA 1.010 1 - 1.[address] [facility] Urobilinogen, UA 2.0 0.2 - 12 mg/dL [facility] COVID/FLU RT-PCRon 3 SARS-CoV-2 (COVID-19) RNA NANCY+probe Ql (Unsp spec) Positive [facility] Other COVID/FLU RT-PCR Negative [employer] ([employer] Other PAP ACOG PANEL 2: 21 to 29on 12-08-2021 . . Normal [facility] Comment on above: Performed By: #### [id number] #### [facility] [address] [place] [address] Dr. Zonia Jay Age Gdln ACOG Testing 21-29 [facility] Comment on above: Performed By: #### [id number] #### [facility] [address] [place] [address] Dr. Zonia Jay DIAGNOSIS: Comment [facility] Comment on above: Result Comment: NEGA TIVE FOR INTRAEPITHELIAL LESION OR MALIGNANCY. PREDOMINANCE OF COCCOBACILLI CONSISTENT WITH SHIFT IN VAGINAL DENNIS IS PRESENT. Performed By: #### [id number] #### [facility] [address] [place] [address] Dr. Zonia Jay Methodology: Comment [facility] Comment on above: Result Comment: This liquid based ThinPrep(R) pap test was screened with the use of an image guided system. Performed By: #### [id number] #### [facility] [address] [place] [address] Dr. Zonia Jay Note: Comment [facility] Comment on above: Result Comment: The Pap smear is a screening test designed to aid in the detection of premalignant and malignant conditions of the uterine cervix. It is not a diagnostic procedure and should not be used as the sole means of detecting cervical cancer. Both false-positive and false-negative reports do occur. . Performed By: #### [id number] #### [facility] [address] [place] [address] Dr. Zonia Jay Performed by: Comment Normal [facility] Comment on above: Result Comment: Jovita Barry Intensive Care Medicine Specialist (ASCP) Performed By: #### 4 [id number] #### [facility] [address] [place] [address] Dr. Zonia Jay Reflex Criteria: Comment [facility] Comment on above: Result Comment: The HPV DNA reflex criteria were not met with this specimen result therefore, no HPV testing was performed. . Performed By: #### [id number] #### [facility] [address] [place] [address] Dr. Zonia Jay Specimen adequacy: Comment Normal [facility] Comment on above: Result Comment: Sati sfactory for evaluation. Endocervical and/or squamous metaplastic cells (endocervical component) are present. Performed By: #### 4 [id number] #### [facility] [address] [place] [address] Dr. Zonia Jay CHLAMYDIA/GONOCOCCUS NANCY (SW AB/URINE/PAPon 12-06-2021 Chlamydia trachomatis, NANCY Negative Normal Negative [facility] Comment on above: Performed By: #### C T/NGNA #### [facility] [address] [place] [address] Dr. Zonia Jay Neisseria gonorrhoeae, NANCY Negative Normal Negative [facility] Comment on above: Performed By: #### C T/NGNA #### [facility] [address] [place] [address] Dr. Zonia Jay VAGINITIS/VAGINOSIS DNA PROB Shawn 12-05-2021 Kavya species Negative Normal Negative [facility] Comment on above: Performed By: #### V AGINT #### [facility] [address] [place] [address] Dr. Zonia Jay Gardnerella vaginalis Positive Abnormal Negative [facility] Comment on above: Performed By: #### V AGINT #### [facility] [address] [place] [address] Dr. Zonia Jay Trichomonas vaginalis Negative Normal Negative [facility] Comment on above: Performed By: #### V AGINT #### [facility] [address] [place] [address] Dr. Zonia Jay Coding Summary.on 12-29-2016 Coding Summary. CODING DATE: 12/29/2016 FINAL [facility] STATUS: Home (Routine DC) PAYOR: Commercial Insurance [...] Stone Date Saved: 12/29/2016 03:53 pm Normal [facility] FSPon 12-28-2016 FIBRIN+FIBRINOGEN FRAGMENTS:MCNC:PT:S ER:QN: >10 and <40 Abnormal <10 [facility] Comment on above: Result Comment: Resu lts Called To Padmini Carroll ([facility]) By SS And Read Back For Confirmation On 12/28/2016 15:00:43 EDT. Performed By: #### [id number] ####[facility] [address] [place] [address] Vital Signs Date Time Vital Sign Value Performing Clinician Facility 07-02-2023 11:19-0500 Body weight 65.23 kg Mile Dorothy DO Work Phone: [facility] 07-02-2023 11:19-0500 Diastolic blood pressure 70 mm[Hg] Mile Dorothy DO Work Phone: [facility] 07-02-2023 11:19-0500 Systolic blood pressure 104 mm[Hg] Mile Dorothy DO Work Phone: [facility] 06-22-2023 13:27-0500 Body weight 67.04 kg Mile Dorothy DO Work Phone: [facility] 06-22-2023 13:27-0500 Diastolic blood pressure 74 mm[Hg] Mile Dorothy DO Work Phone: [facility] 06-22-2023 13:27-0500 Systolic blood pressure 112 mm[Hg] Mile Dorothy DO Work Phone: [facility] 08-12-2022 12:10-0400 Body height 154.94 cm Catrachita Sloan Other [facility] Other 08-12-2022 12:10-0400 Body mass index (BMI) [Ratio] 26.83 kg/m2 Catrachita Sloan Other [facility] Other 08-12-2022 12:10-0400 Body temperature 99 [degF] Catrachita Sloan Other [facility] Other 08-12-2022 12:10-0400 Body weight 64.41 kg Catrachita Sloan Other [facility] Other 08-12-2022 12:10-0400 Respiratory rate 18 /min Catrachita Mcnallymond Other [facility] Other 08-12-2022 12:10-0400 SaO2% (BldA) [Mass fraction] 97 % Catrachita Slona Other [facility] Other Encounters Encounter Date Encounter Type Care Provider Facility Start: 08-23-2023 End: 08-23-2023 ambulatory MILE DOROTHY Not Available Start: 07-02-2023 End: 07-02-2023 ambulatory MILE DOROTHY [...] type Start: 08-12-2022 End: 08-12-2022 ambulatory Catrachita Nathalia Other [facility] Other Start: 08-12-2022 Office outpatient vi sit 15 minutes Catrachita Sloan [facility] Start: 12-03-2021 End: 12-03-[address] MILE DE LA CRUZ Facility: Start: 12-28-2016 End: 12-29-2016 Ambulatory Emery Mitchell Facility:[facility] [place] Procedures Date Procedure Procedure Detail Performing Clinician Start: 07-02-2023 Urnls dip stick/tabl et rgnt non-auto w/o micrscp Mile De La Cruz DO Work Phone: Plan of Treatment Date Care Activity Detail Author Start: 08-02-2023 End: 08-02-2023 Patient encounter procedure 08/02/2023 10:20 AM EDT Routine [facility] [address] [place] [id number] Mile De La Cruz DO [address] [place], [place] [id number] [facility] OB Start: 07-05-2023 End: 07-05-2023 Patient encounter procedure 07/05/2023 10:10 AM EST Office Visit [facility] OB [address] [place] [id number] Bernadette Handy, PA [address] [place], [place] [id number] [facility] OB Start: 07-02-2023 End: 07-02-2024 ABO/Rh ABO/Rh Lab Routine Missed menses Expected: 07/02/2023 (Approximate), Expires: 07/02/2024 [facility] Comment on above: Expected: 07/02/2023 (Approximate), Expires: 07/02/2024 Start: 07-02-2023 End: 07-02-2024 Blood type and Indirect antibody screen panel - Blood Type and screen Lab Routine Missed menses Expected: 07/02/2023 (Approximate), Expires: 07/02/2024 [facility] Work Phone: Comment on above: Expected: 07/02/2023 (Approximate), Expires: 07/02/2024 Start: 07-02-2023 End: 07-02-2024 US Pelvis transvaginal US OB transvaginal Imaging Routine Missed menses Expected: 07/02/2023 (Approximate), Expires: 07/02/2024 [facility] Comment on above: Expected: 07/02/2023 (Approximate), Expires: 07/02/2024 Start: 07-02-2023 End: 07-02-2023 ambulatory 07/02/2023 10:30 AM EST Initial [facility] [address] [place] [address] [facility] Start: 07-02-2023 End: 07-02-2023 Professional / ancillary services management 07/02/2023 10:00 AM EST Ancillary Procedure [facility] [address] [place] [address] [facility] Bacteria identified in Urine by Culture Urine culture Microbiology Routine Missed menses Ordered: 07/02/2023 [facility] Comment on above: Ordered: 07/02/2023 CBC W Auto Different ial panel - Blood CBC and differential Lab Routine Missed menses Ordered: 07/02/2023 [facility] Comment on above: Ordered: 07/02/2023 Hemoglobin A1c measurement Hemoglobin A1c Lab Routine Missed menses Ordered: 07/02/2023 [facility] Comment on above: Ordered: 07/02/2023 Hepatitis B virus surface Ag [Presence] in Serum or Plasma by Immunoassay Hepatitis B surface antigen Lab Routine Missed menses Ordered: 07/02/2023 [facility] Comment on above: Ordered: 07/02/2023 Hepatitis C virus Ab [Presence] in Serum or Plasma by Immunoassay Hepatitis C antibody Lab Routine Missed menses Ordered: 07/02/2023 [facility] Comment on above: Ordered: 07/02/2023 HIV-1/HIV-2 antigen/antibody combination immunoassay HIV-1 and HIV-2 antibodies Lab Routine Missed menses Ordered: 07/02/2023 [facility] Comment on above: Ordered: 07/02/2023 Reagin Ab [Presence] in Serum by RPR RPR Lab Routine Missed menses Ordered: 07/02/2023 [facility] Comment on above: Ordered: 07/02/2023 Rubella antibody, IgG Rubella an tibody, IgG Lab Routine Missed menses Ordered: 07/02/2023 [facility] Comment on above: Ordered: 07/02/2023 Payers Date Payer Category Payer Medicaid [id number] 2022 Medicaid [place] [employer] [id number] 2022-Present [address] [place] [address] [id number] 2016 Unknown 2000 Unknown [id number] 2000 Unknown [id number] 2000 Unknown [id number] 2000 Unknown [id number] 1959 Unknown [id number] Social History Date Type Detail Facility Unknown if ever smoked [facility] Other Sex Assigned At Sex Assigned At [facility] Other Tobacco smoking stat [facility] Tobacco smoking consumption unknown [facility] Start: 2000 Sex Assigned At Female [facility] Start: 03-12-2023 Gender identity Identifies as female gender (finding) [facility] Start: 03-12-2023 Sexual orientation Heterosexual (finding) [facility] History of Present illness Narrative [...] or undercooked meat, and stay away from [facility]. Patient has also been advised to not [...] Melani Tabares LPN documented in this encounter [facility] History of Present illness Narrative 06-22-2023 Patsy Trujillo LPN - 06/22/2023 1:10 PM EST Note Date [...] nursing note reviewed. Exam conducted with a athletic team physician present. Vitals: There is no height or [...] La Cruz DO documented in this encounter [facility] Evaluation note 08-12-2022 Note Date & [...] Jul, History of asthma (ICD-10 - Z87.09) [facility] Other Evaluation note Note Date & Type Note Facility Evaluation note Diagnosis Nausea and vomiting, unspecified vomiting type Missed menses documented in this encounter [facility] Evaluation note Note Date & Type Note Facility Evaluation note Diagnosis Missed menses Active asthma ([facility]) Unspecified asthma Upper respiratory tract infection, unspecified type documented in this encounter [facility] History general Narrative - Reported Note Date & Type Note Facility History general Narrative - Reported Type Medical History asthma Surgical History C section [facility] Other Summary Purpose Family History No Family History Records FoundNo Family History Records FoundNo Family History Records Found Advance Directives No Advanced Directives Records FoundNo Advanced Directives Records FoundNo Advanced Directives Records Found Additional Source Comments INFORMATION SOURCE (unrecogn ized section and content) DATE CREATED AUTHOR 11/17/[address] [facility] DATE CREATED AUTHOR AUTHOR'S ORGANIZ ATION 12/10/2021 [facility] DATE CREATED AUTHOR AUTHOR'S ORGANIZ ATION 08/24/2023 [facility] EPIC REASON FOR VISIT (unrecogniz [...] BE BASED ON THE PRIMARY CLINICAL RECORDS. [employer] provides no warranty or guarantee of the accuracy or completeness of information in this document.
== END 2023-09-21 12:57 | disposition home or self-care (01) ==
LOC: NOMS 12:57
PROVIDERS: Visit Provider Obstetrics & Gynecology
DX: Z36.89 Encounter for other specified antenatal screening (principal); Z3A.20 20 weeks gestation of pregnancy
CPT/HCPCS: 76805; 76817

== ENCOUNTER 2023-10-11 14:45 | Outpatient (OUT) | payer MEDICAID, SELFPAY ==
[2023-10-11 15:15] LABS: Basophils Percent Auto 0.4 % (0.2-2.0); Eosinophils Absolute Auto 0.1 10^3/uL (0.0-0.7); Eosinophils Percent Auto 0.5 % (0.9-7.0); Hematocrit 31.8 % (36.0-48.0); Hemoglobin 10.7 g/dL (12.0-16.0); Immature Granulocytes Abs Auto 0.01 10^3/uL (0.00-0.03); Immature Granulocytes Pct Auto 0.1 % (0.0-0.5); Lymphocytes Absolute Auto 2.1 10^3/uL (1.2-3.8); Lymphocytes Percent Auto 22.5 % (20.5-60.0); Mean Corpuscular HGB Conc 33.6 g/dL (29.9-35.2); Mean Corpuscular Hemoglobin 28.8 pg (26.7-34.0); Mean Corpuscular Volume 85.7 fL (81.0-99.0); Mean Platelet Volume 9.5 fL (9.5-13.5); Monocytes Absolute Auto 0.5 10^3/uL (0.3-0.8); Monocytes Percent Auto 4.9 % (1.7-12.0); Neutrophils Absolute Auto 6.6 10^3/uL (1.4-6.5); Neutrophils Percent Auto 71.6 % (43.0-75.0); Platelet Count 377 10^3/uL (150-450); Red Blood Count 3.71 10^6/uL (4.20-5.40); Red Cell Distribution Width 13.7 % (11.0-15.0); White Blood Count 9.3 10^3/uL (4.0-11.0)
[2023-10-11 15:29] LABS: Estimated Average Glucose 97 mg/dL
[2023-10-12 06:10] LABS: HBsAg Screen Negative (Negative); HCV Ab Non Reactive (Non Reactive); HIV Ab/p24 Ag Screen Non Reactive (Non Reactive)
[2023-10-12 08:14] LABS: Rubella Antibodies, IgG 3.18 index (Immune >0.99)
[2023-10-12 12:12] LABS: Rapid Plasma Reagin, Quant Non Reactive titer (NonRea<1:1)
== END 2023-10-11 14:46 | disposition home or self-care (01) ==
LOC: LAB 14:48
PROVIDERS: Visit Provider Obstetrics & Gynecology
DX: N92.6 Irregular menstruation, unspecified (principal)
CPT/HCPCS: 36415; 83036; 85025; 86592; 86762; 86803; 86850; 86900; 86901; 87086; 87340; 87389

== ENCOUNTER 2023-10-25 17:05 | Observation (INO) | payer MEDICAID, SELFPAY ==
--- OUTSIDE RECORDS SUMMARY | 2023-10-25 17:20 | XMS_ITS | CCD ---
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 Name Role Phone Emery Mitchell Unavailable Unavailable Emery Mitchell Unavailable Unavailable NONE, XXXX Unavailable Unavailable DR MILE DE LA CRUZ Attending Unavailable DR MILE DE LA CRUZ Consulting Unavailable DR MILE DE LA CRUZ Admitting Unavailable Catrachita Sloan Unavailable Unavailable Primary Care Provider UnavailMILE Irby Attending Unavailable MILE DE LA CRUZ Attending Unavailable BERNADETTE LACKEY Attending Unavailable Allergies Allergy Classification Reported Allergen(s) Allergy Type Date of Onset Reaction(s) Facility (3 sources) Octacosanol Propensity to adverse reactions 4 [facility] Work Phone: Medications Current Medications Medication Drug Class(es) Dates Sig (Normalized) Sig (Original) 200 actuat albuterol 0.09 mg/actuat dry powder inhaler (3 sources) beta2-Adrenergic Agonist Start: 06-28-2023 End: 07-01-2024 take 2 puff(s) by inhalation every four hours for wheezing albuterol (ProAir [employer]pi[employer]) 90 mcg/act breath-activated inhaler Indications: Active asthma ([facility]) Inhale 2 puffs every 4 (four) hours [...] Interpretation and review of laboratory results Abnormal [facility] Healthfl re Preg Test, Ur [facility]inal[facility] macro (dipstick) panel (U)on 07-02-2023 Bilirubin, UA Negative Negative - 4(70) +++ mg/dL [facility] Blood, UA Negative Negative - 50 Jesse/mcL [facility] Clarity, UA Clear [facility] re Color, UA Yellow [facility] HealthQian Xiao'er e Glucose, UA Negative Negative - 1999(110) ++++ mg/dL [facility] Interpretation and review of laboratory results Abnormal [facility] re Ketones, UA Negative Negative - 160(16) ++++ mg/dL [facility] Leukocytes, UA Negative Negative - 500+++ Clinton/mcL [facility] Nitrite, UA Negative Negative - Positive [facility] pH, UA 6.0 5 - 9 [facility] e Protein, UA Negative Negative - 1999(20) ++++ mg/dL [facility] Spec Grav, UA 1.010 1 - 1.03 [facility] Urobilinogen, UA 2.0 0.2 - 12 mg/dL [facility] COVID/FLU RT-PCRon 3 SARS-CoV-2 (COVID-19) RNA NANCY+probe Ql (Unsp spec) Positive [employer] Other COVID/FLU RT-PCR Negative [employer] Other PAP ACOG PANEL 2: 21 to 29on 12-08-2021 . . Normal [facility] Comment on above: Performed By: #### [id number] #### [facility] [address] [place] [address] Dr. Zonia Jay Age Gdln ACOG Testing 21-29 [facility] Comment on above: Performed By: #### [id number] #### [facility] [address] [place] [address] Dr. Zonia Jay DIAGNOSIS: Comment Normal [facility] Comment on above: Result Comment: NEGA TIVE FOR INTRAEPITHELIAL LESION OR MALIGNANCY. PREDOMINANCE OF COCCOBACILLI CONSISTENT WITH SHIFT IN VAGINAL DENNIS IS PRESENT. Performed By: #### 4 [id number] #### [facility] [address] [place] [address] Dr. Zonia Jay Methodology: Comment Normal [facility] Comment on above: Result Comment: This liquid based ThinPrep(R) pap test was screened with the use of an image guided system. Performed By: #### [id number] #### [facility] [address] [place] [address] Dr. Zonia Jay Note: Comment Normal [facility] Comment on above: Result Comment: The Pap smear is a screening test designed to aid in the detection of premalignant and malignant conditions of the uterine cervix. It is not a diagnostic procedure and should not be used as the sole means of detecting cervical cancer. Both false-positive and false-negative reports do occur. . Performed By: #### [id number] #### [facility] [address] [place] [address] Dr. Zonia Jay Performed by: Comment Normal [facility] Comment on above: Result Comment: Jovita Barry Health Care Facilities Inspector (ASCP) Performed By: #### [id number] #### [facility] [address] [place] [address] Dr. Zonia Jay Reflex Criteria: Comment [facility] Comment on above: Result Comment: The HPV DNA reflex criteria were not met with this specimen result therefore, no HPV testing was performed. . Performed By: #### 4 [id number] #### [facility] [address] [place] [address] Dr. Zonia Jay Specimen adequacy: Comment Normal [facility] Comment on above: Result Comment: Sati sfactory for evaluation. Endocervical and/or squamous metaplastic cells (endocervical component) are present. Performed By: #### 4 [id number] #### [facility] [address] [place] [address] Dr. Zonia Jay CHLAMYDIA/GONOCOCCUS NANCY (SW AB/URINE/PAPon 12-06-2021 Chlamydia trachomatis, NANCY Negative Normal Negative [facility] Comment on above: Performed By: #### C T/NGNA #### [facility] [address] [place] [address] Dr. Zonia Jay Neisseria gonorrhoeae, NANCY Negative Normal Negative [facility] Comment on above: Performed By: #### C T/NGNA #### [facility] [address] [place] [address] Dr. Zonia Jay VAGINITIS/VAGINOSIS DNA PROB Shawn 12-05-2021 Kavya species Negative Normal Negative [facility] Comment on above: Performed By: #### V AGINT #### [facility] [address] [place] [address] Dr. Zonia Jay Gardnerella vaginalis Positive Abnormal Negative [facility] Comment on above: Performed By: #### V AGINT #### [facility] [address] [place] [address] Dr. Zonia Jay Trichomonas vaginalis Negative Normal Negative [facility] Comment on above: Performed By: #### V AGINT #### [facility] [address] [place] [address] Dr. Zonia Jay Coding Summary.on 12-29-2016 Coding Summary. CODING DATE: 12/29/2016 FINAL [facility] STATUS: Home (Routine DC) PAYOR: Commercial [...] Stone Date Saved: 12/29/2016 03:53 pm Normal [facility] FSPon 12-28-2016 FIBRIN+FIBRINOGEN FRAGMENTS:MCNC:PT:S ER:QN: >10 and <40 Abnormal <10 [facility] Comment on above: Result Comment: Resu lts Called To Padmini Carroll ([facility]) By SS And Read Back For Confirmation On 12/28/2016 15:00:43 EDT. Performed By: #### [id number] ####[facility] [id number] [place] [address] Vital Signs Date Time Vital Sign Value Performing Clinician Facility 07-02-2023 11:19-0500 Body weight 65.23 kg Mile Dorothy DO Work Phone: [facility] 07-02-2023 11:19-0500 Diastolic blood pressure 70 mm[Hg] Mile Dorothy DO Work Phone: [facility] 07-02-2023 11:19-0500 Systolic blood pressure 104 mm[Hg] Mile Dorothy DO Work Phone: [facility] 06-22-2023 13:27-0500 Body weight 67.04 kg Mile Dorothy DO Work Phone: [facility] 06-22-2023 13:27-0500 Diastolic blood pressure 74 mm[Hg] Mile Dorothy DO Work Phone: [facility] 06-22-2023 13:27-0500 Systolic blood pressure 112 mm[Hg] Mile Dorothy DO Work Phone: [facility] 08-12-2022 12:10-0400 Body height 154.94 cm Catrachita Sloan Other [employer] Other 08-12-2022 12:10-0400 Body mass index (BMI) [Ratio] 26.83 kg/m2 Catrachita Sloan Other [employer] Other 08-12-2022 12:10-0400 Body temperature 99 [degF] Catrachita Sloan Other [employer] Other 08-12-2022 12:10-0400 Body weight 64.41 kg Catrachita Sloan Other [employer] Other 08-12-2022 12:10-0400 Respiratory rate 18 /min Catrachita Sloan Other [employer] Other 08-12-2022 12:10-0400 SaO2% (BldA) [Mass fraction] 97 % Catrachita Sloan Other [employer] Other Encounters Encounter Date Encounter Type Care Provider Facility Start: 10-11-2023 End: 10-11-2023 ambulatory BERNADETTE DARYA Not Available Start: 08-23-2023 End: 08-23-2023 ambulatory MILE DOROTHY [...] 08-12-2022 End: 08-12-2022 ambulatory Catrachita Nathalia Other [employer] Other Start: 08-12-2022 Office outpatient vi sit 15 minutes Catrachita Sloan [facility] Start: 12-03-2021 End: 12-03-[address] MILE DE LA CRUZ Facility: Start: 12-28-2016 End: 12-29-2016 Ambulatory Emery Mitchell [place] Procedures Date Procedure Procedure Detail Performing Clinician Start: 07-02-2023 Urnls dip stick/tabl et rgnt non-auto w/o micrscp Mile DeL a Cruz DO Work Phone: Plan of Treatment Date Care Activity Detail Author Start: 08-02-2023 End: 08-02-2023 Patient encounter procedure 08/02/2023 10:20 AM EDT [facility] [address] [place] [id number] Mile De La Cruz, DO [address] [place], [place] [id number] [facility] Start: 07-05-2023 End: 07-05-2023 Patient encounter procedure 07/05/2023 10:10 AM EST Office Visit [facility] [address] [place] [address] Bernadette Lackey PA [address] [place], [place] [id number] [facility] Start: 07-02-2023 End: 07-02-2024 ABO/Rh ABO/Rh Lab Routine Missed menses Expected: 07/02/2023 (Approximate), Expires: 07/02/2024 [facility] Comment on above: Expected: 07/02/2023 (Approximate), Expires: 07/02/2024 Start: 07-02-2023 End: 07-02-2024 Blood type and Indirect antibody screen panel - Blood Type and screen Lab Routine Missed menses Expected: 07/02/2023 (Approximate), Expires: 07/02/2024 [facility] Work Phone: Comment on above: Expected: 07/02/2023 (Approximate), Expires: 07/02/2024 Start: 07-02-2023 End: 07-02-2024 US Pelvis transvaginal US OB transvaginal Imaging Routine Missed menses Expected: 07/02/2023 (Approximate), Expires: 07/02/2024 [facility] Comment on above: Expected: 07/02/2023 (Approximate), Expires: 07/02/2024 Start: 07-02-2023 End: 07-02-2023 ambulatory 07/02/2023 10:30 AM EST Initial [facility] [address] [place] [address] [facility] Start: 07-02-2023 End: 07-02-2023 Professional / ancillary services management 07/02/2023 10:00 AM EST Ancillary Procedure [facility] [address] [place] [address] [facility] Bacteria identified in Urine by Culture Urine culture Microbiology Routine Missed menses Ordered: 07/02/2023 [facility] Comment on above: Ordered: 07/02/2023 CBC W Auto Different ial panel - Blood CBC and differential Lab Routine Missed menses Ordered: 07/02/2023 [facility] Comment on above: Ordered: 07/02/2023 Hemoglobin A1c measurement Hemoglobin A1c Lab Routine Missed menses Ordered: 07/02/2023 [facility] Comment on above: Ordered: 07/02/2023 Hepatitis B virus surface Ag [Presence] in Serum or Plasma by Immunoassay Hepatitis B surface antigen Lab Routine Missed menses Ordered: 07/02/2023 [facility] Comment on above: Ordered: 07/02/2023 Hepatitis C virus Ab [Presence] in Serum or Plasma by Immunoassay Hepatitis C antibody Lab Routine Missed menses Ordered: 07/02/2023 [facility] Comment on above: Ordered: 07/02/2023 HIV-1/HIV-2 antigen/antibody combination immunoassay HIV-1 and HIV-2 antibodies Lab Routine Missed menses Ordered: 07/02/2023 [facility] Comment on above: Ordered: 07/02/2023 Reagin Ab [Presence] in Serum by RPR RPR Lab Routine Missed menses Ordered: 07/02/2023 [facility] Comment on above: Ordered: 07/02/2023 Rubella antibody, IgG Rubella an tibody, IgG Lab Routine Missed menses Ordered: 07/02/2023 [facility] Comment on above: Ordered: 07/02/2023 Payers Date Payer Category Payer Medicaid [id number] 2022 Medicaid [facility] [place] [id number] 2022-Present [address] [place] [address] [id number] 2016 Unknown 2000 Unknown [id number] 2000 Unknown [id number] 2000 Unknown [id number] 2000 Unknown [id number] 2000 Unknown [id number] 1959 Unknown [id number] Social History Date Type Detail Facility Unknown if ever smoked [employer] Other Sex Assigned At Sex Assigned At [facility] [employer] Other Tobacco smoking stat [facility] Tobacco smoking consumption unknown [facility] Start: 2000 Sex Assigned At Female [facility] Start: 03-12-2023 Gender identity Identifies as female gender (finding) [facility] Start: 03-12-2023 Sexual orientation Heterosexual (finding) [facility] History of Present illness Narrative 07-02-2023 [...] or undercooked meat, and stay away from [facility]. Patient has also been advised to [...] Melani Tabares LPN documented in this encounter [facility] History of Present illness Narrative 06-22-2023 Patsy [...] nursing note reviewed. Exam conducted with a dealer compliance representative present. Vitals: There is no height or [...] Jul, History of asthma (ICD-10 - Z87.09) [employer] Other Evaluation note Note Date & Type Note Facility Evaluation note Diagnosis Nausea and vomiting, unspecified vomiting type Missed menses documented in this encounter [facility] Evaluation note Note Date & Type Note Facility Evaluation note Diagnosis Missed menses Active asthma ([facility]) Unspecified asthma Upper respiratory tract infection, unspecified type documented in this encounter [facility] History general Narrative - Reported Note Date & Type Note Facility History general Narrative - Reported Type Medical History asthma Surgical History C section [facility] [email or web address] Other Summary Purpose Family History No Family History Records FoundNo Family History Records FoundNo Family History Records Found Advance Directives No Advanced Directives Records FoundNo Advanced Directives Records FoundNo Advanced Directives Records Found Additional Source Comments INFORMATION SOURCE (unrecogn ized section and content) DATE CREATED AUTHOR 11/17/2017 [facility] DATE CREATED AUTHOR AUTHOR'S ORGANIZ ATION 12/10/2021 [facility] DATE CREATED AUTHOR AUTHOR'S ORGANIZ ATION 10/13/2023 [facility] EPIC REASON FOR VISIT [...] BE BASED ON THE PRIMARY CLINICAL RECORDS. [employer] provides no warranty or guarantee of the accuracy or completeness of information in this document.
--- NOTE | 2023-10-25 17:33 | US_ITS ---
The [address] [address] Patient Name: CARYN JERRY MRN: [id number] date: 2000 Sex: F Assigned Patient Location: [facility] Current Patient Location: Accession/Order Number: [id number] Exam Date: 10/25/2023 18:49 Report Date: 10/25/2023 21:03 At the request of: MILE RING Procedure: US OB cervical length ULTRASOUND OB CERVICALLENGTH HISTORY: with cramping COMPARISON: Ultrasound OB 09/21/2023 FINDINGS: There is a single intrauterine in the breech presentation with longitudinal lie. The placenta tip to the internal os measures 6.9 cm. The cervical length measures 4.8 cm and is closed. There are heart tones of 140 bpm. US/US OB cervical length IMPRESSION: Single viable intrauterine ; cervical length 4.8 cm and closed. Electronically authenticated by: INDRE VALE Date: 10/25/2023 21:03
== END 2023-10-25 19:14 | disposition home or self-care (01) ==
PROVIDERS: Admitting Provider Obstetrics & Gynecology; Visit Provider Obstetrics & Gynecology
DX: O26.892 Other specified pregnancy related conditions, second trimester (principal); N89.8 Other specified noninflammatory disorders of vagina; Z3A.25 25 weeks gestation of pregnancy
CPT/HCPCS: 59025; 76817; G0378; G0379

== ENCOUNTER 2023-11-15 10:46 | Outpatient (OUT) | payer MEDICAID, SELFPAY ==
--- OUTSIDE RECORDS SUMMARY | 2023-11-15 11:09 | XMS_ITS | CCD ---
Author Organization [facility] Inform ion Partnership 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 Role Phone Emery Mitchell Unavailable Unavailable [...] sources) Octacosanol Propensity to adverse reactions 4 [facility] Work Phone: Medications Current Medications Medication Drug Class(es) Dates Sig (Normalized) Sig (Original) 200 actuat albuterol 0.09 mg/actuat dry powder inhaler (3 sources) beta2-Adrenergic Agonist Start: 06-28-2023 End: 07-01-2024 take 2 puff(s) by inhalation every four hours for wheezing albuterol (ProAir RespiClick) 90 mcg/act breath-activated inhaler Indications: Active asthma ([facility]) Inhale 2 puffs every 4 (four) [...] Interpretation and review of laboratory results Abnormal [facility] Preg Test, Ur Positive [facility] Urinalysis macro (dipstick) panel (U)on 07-02-2023 Bilirubin, UA Negative Negative - 4(70) +++ mg/dL [facility] Blood, UA Negative Negative - 50 Jesse/mcL [facility] Clarity, UA Clear [facility] re Color, UA Yellow [facility] Glucose, UA Negative Negative - 1999(110) ++++ mg/dL [facility] Interpretation and review of laboratory results Abnormal [facility] re Ketones, UA Negative Negative - 160(16) ++++ mg/dL [facility] Leukocytes, UA Negative Negative - 500+++ Clinton/mcL [facility] Nitrite, UA Negative Negative - Positive [facility] pH, UA 6.0 5 - 9 [facility] Protein, UA Negative Negative - 1999(20) ++++ mg/dL [facility] Spec Grav, UA 1.010 1 - 1.03 [facility] Urobilinogen, UA 2.0 0.2 - 12 mg/dL [facility] COVID/FLU RT-PCRon 3 SARS-CoV-2 (COVID-19) RNA NANCY+probe Ql (Unsp spec) Positive [employer] Other COVID/FLU RT-PCR Negative [employer] Other PAP ACOG PANEL 2: 21 to 29on 12-08-2021 . . Normal [facility] Comment on above: Performed By: #### [id number] #### [facility] [address] [place] [address] Dr. Zonia Jay Age Gdln ACOG Testing 21-29 Normal [facility] Comment on above: Performed By: #### [id number] #### [facility] [address] [place] [address] Dr. Zonia Jay DIAGNOSIS: Comment Normal [facility] Comment on above: Result Comment: NEGA TIVE FOR INTRAEPITHELIAL LESION OR MALIGNANCY. PREDOMINANCE OF COCCOBACILLI CONSISTENT WITH SHIFT IN VAGINAL DENNIS IS PRESENT. Performed By: #### [id number] #### [facility] [address] [place] [address] Dr. Zonia Jay Methodology: Comment Normal [facility] Comment on above: Result Comment: This liquid based ThinPrep(R) pap test was screened with the use of an image guided system. Performed By: #### [id number] #### [facility] [address] [place] [address] Dr. Zonia Jay Note: Comment Normal [facility] Comment on above: Result Comment: The Pap smear is a screening test designed to aid in the detection of premalignant and malignant conditions of the uterine cervix. It is not a diagnostic procedure and should not be used as the sole means of detecting cervical cancer. Both false-positive and false-negative reports do occur. . Performed By: #### [id number] #### [facility] [address] [place] [address] Dr. Zonia Jay Performed by: Comment Normal [facility] Comment on above: Result Comment: Jovita Barry Guest Service Representative (ASCP) Performed By: #### [id number] #### [facility] [address] [place] [address] Dr. Zonia Jay Reflex Criteria: Comment Normal [facility] Comment on above: Result Comment: The HPV DNA reflex criteria were not met with this specimen result therefore, no HPV testing was performed. . Performed By: #### [id number] #### [facility] [address] [place] [address] Dr. Zonia Jay Specimen adequacy: Comment Normal [facility] Comment on above: Result Comment: Sati sfactory for evaluation. Endocervical and/or squamous metaplastic cells (endocervical component) are present. Performed By: #### [id number] #### [facility] [address] [place] [address] Dr. Zonia Jay CHLAMYDIA/GONOCOCCUS NANCY (SW AB/URINE/PAPon 12-06-2021 Chlamydia trachomatis, NANCY Negative Normal Negative [facility] Comment on above: Performed By: #### C T/NGNA #### [facility] [address] [place] [address] Dr. Zonia Jay Neisseria gonorrhoeae, NANCY Negative Normal Negative [facility] Comment on above: Performed By: #### C T/NGNA #### [facility] [address] [place] [address] Dr. Zonia Jay VAGINITIS/VAGINOSIS DNA PROB Shawn 12-05-2021 Kavya species Negative Normal Negative [facility] Comment on above: Performed By: #### V AGINT #### [facility] [address] [place] [address] Dr. Zonia Jay Gardnerella vaginalis Positive Abnormal Negative [facility] Comment on above: Performed By: #### V AGINT #### [facility] [address] [place] [address] Dr. Zonia Jay Trichomonas vaginalis Negative Normal Negative [facility] Comment on above: Performed By: #### V AGINT #### [facility] [address] [place] [address] Dr. Zonia Jay Coding Summary.on 12-29-2016 Coding Summary. CODING DATE: 12/29/2016 FINAL [facility] STATUS: Home (Routine DC) PAYOR: Commercial [...] pm Normal [facility] FSPon 12-28-2016 FIBRIN+FIBRINOGEN FRAGMENTS:MCNC:PT:S ER:QN: >10 and <40 Abnormal <10 [facility] Comment on above: Result Comment: Resdeysi lts Called To Padmini Carroll ([facility]) By SS And Read Back For Confirmation On 12/28/2016 15:00:43 EDT. Performed By: #### [id number] ####[facility] [address] [place] [address] Vital Signs Date Time Vital Sign Value Performing Clinician Facility 07-02-2023 11:19-0500 Body weight 65.23 kg Mile Dorothy DO Work Phone: [facility] 07-02-2023 11:19-0500 Diastolic blood pressure 70 mm[Hg] Mile Dorothy DO Work Phone: [facility] 07-02-2023 11:19-0500 Systolic blood pressure 104 mm[Hg] Mile Dorothy DO Work Phone: [facility] 06-22-2023 13:27-0500 Body weight 67.04 kg Mile Dorothy DO Work Phone: [facility] 06-22-2023 13:27-0500 Diastolic blood pressure 74 mm[Hg] Mile Dorothy DO Work Phone: [facility] 06-22-2023 13:27-0500 Systolic blood pressure 112 mm[Hg] Mile Dorothy DO Work Phone: [facility] 08-12-2022 12:10-0400 Body height 154.94 cm Catrachita Sloan Other [employer] Other 08-12-2022 12:10-0400 Body mass index (BMI) [Ratio] 26.83 kg/m2 Catrachita Sloan Other [employer] Other 08-12-2022 12:10-0400 Body temperature 99 [degF] Catrachita Sloan Other [employer] Other 08-12-2022 12:10-0400 Body weight 64.41 kg Catrachita Nathalia Other [employer] Other 08-12-2022 12:10-0400 Respiratory rate 18 /min Catrachita Nathalia Other [employer] Other 08-12-2022 12:10-0400 SaO2% (BldA) [Mass fraction] 97 % Catrachita Sloan Other [employer] Other Encounters Encounter Date Encounter Type Care Provider Facility Start: 10-11-2023 End: 10-11-2023 ambulatory BERNADETTE LACKEY Not Available Start: 08-23-2023 End: 08-23-2023 ambulatory MILE DOROTHY Not Available Start: 07-02-2023 End: 07-02-2023 ambulatory MILE DOROTHY Not Available Start: 07-02-2023 End: 07-02-2023 Office outpatient visit 5 minutes Mile Dorothy DO Work Phone: [facility] Start: 06-22-2023 End: 06-22-2023 ambulatory MILE DOROTHY Not Available Start: 06-22-2023 End: 06-22-2023 Office outpatient visit 15 minutes Imle Dorothy DO Work Phone: [facility] Comment on above: Nausea and vomiting, unspecified vomiting type Start: 08-12-2022 End: 08-12-2022 ambulatory Catrachita Sloan Other [employer] Other Start: 08-12-2022 Office outpatient vi sit 15 minutes Catrachita Sloan [facility] Start: 12-03-2021 End: 12-03-[address] MILE DE LA CRUZ Facility: Start: 12-28-2016 End: 12-29-2016 Ambulatory Emery Mitchell Facility:[facility] Procedures Date Procedure Procedure Detail Performing Clinician Start: 07-02-2023 Urnls dip stick/tabl et rgnt non-auto w/o micrscp Mile De La Cruz DO Work Phone: Plan of Treatment Date Care Activity Detail Author Start: 08-02-2023 End: 08-02-2023 Patient encounter procedure 08/02/2023 10:20 AM EDT Routine [facility] [address] [place] [address] Mile De La Cruz, [address] [place], [place] [id number] [facility] Start: 07-05-2023 End: 07-05-2023 Patient encounter procedure 07/05/2023 10:10 AM EST Office Visit [facility] [address] [place] [address] Bernadette Lackey PA [address] [place], [place] [id number] [facility] Start: 07-02-2023 End: 07-02-2024 ABO/Rh ABO/Rh Lab Routine Missed menses Expected: 07/02/2023 (Approximate), Expires: 07/02/2024 [facility] Comment on above: Expected: 07/02/2023 (Approximate), Expires: 07/02/2024 Start: 07-02-2023 End: 07-02-2024 Blood type and Indirect antibody screen panel - Blood Type and screen Lab Routine Missed menses Expected: 07/02/2023 (Approximate), Expires: 07/02/2024 [facility] Work Phone: Comment on above: Expected: 07/02/2023 (Approximate), Expires: 07/02/2024 Start: 07-02-2023 End: 07-02-2024 US Pelvis transvaginal US OB transvaginal Imaging Routine Missed menses Expected: 07/02/2023 (Approximate), Expires: 07/02/2024 [facility] Comment on above: Expected: 07/02/2023 (Approximate), Expires: 07/02/2024 Start: 07-02-2023 End: 07-02-2023 ambulatory 07/02/2023 10:30 AM EST Initial [facility] [address] [place] [address] [facility] Start: 07-02-2023 End: 07-02-2023 Professional / ancillary services management 07/02/2023 10:00 AM EST Ancillary Procedure [facility] [address] [place] [address] [facility] Bacteria identified in Urine by Culture Urine culture Microbiology Routine Missed menses Ordered: 07/02/2023 [facility] Comment on above: Ordered: 07/02/2023 CBC W Auto Different ial panel - Blood CBC and differential Lab Routine Missed menses Ordered: 07/02/2023 [facility] Comment on above: Ordered: 07/02/2023 Hemoglobin A1c measurement Hemoglobin A1c Lab Routine Missed menses Ordered: 07/02/2023 [facility] Comment on above: Ordered: 07/02/2023 Hepatitis B virus surface Ag [Presence] in Serum or Plasma by Immunoassay Hepatitis B surface antigen Lab Routine Missed menses Ordered: 07/02/2023 [facility] Comment on above: Ordered: 07/02/2023 Hepatitis C virus Ab [Presence] in Serum or Plasma by Immunoassay Hepatitis C antibody Lab Routine Missed menses Ordered: 07/02/2023 [facility] Comment on above: Ordered: 07/02/2023 HIV-1/HIV-2 antigen/antibody combination immunoassay HIV-1 and HIV-2 antibodies Lab Routine Missed menses Ordered: 07/02/2023 [facility] Comment on above: Ordered: 07/02/2023 Reagin Ab [Presence] in Serum by RPR RPR Lab Routine Missed menses Ordered: 07/02/2023 [facility] Comment on above: Ordered: 07/02/2023 Rubella antibody, IgG Rubella an tibody, IgG Lab Routine Missed menses Ordered: 07/02/2023 [facility] Comment on above: Ordered: 07/02/2023 Payers Date Payer Category Payer Medicaid [id number] 2022 Medicaid [facility] [employer] BCBS [place]ICA[place] [id number] 2022-Present [address] [place] [address] [id number] 2016 Unknown 2000 Unknown [id number] 2000 Unknown [id number] 2000 Unknown [id number] 2000 Unknown [id number] 2000 Unknown [id number] 1959 Unknown [id number] Social History Date Type Detail Facility Unknown if ever smoked [employer] Other Sex Assigned At Sex Assigned At Bir th [employer] Other Tobacco smoking stat [facility] Tobacco smoking consumption unknown [facility] Start: 2000 Sex Assigned At Female [facility] Start: 03-12-2023 Gender identity Identifies as female gender (finding) [facility] Start: 03-12-2023 Sexual orientation Heterosexual (finding) [facility] History of Present illness Narrative 07-02-2023 [...] or undercooked meat, and stay away from [facility]. Patient has also been advised to not [...] nursing note reviewed. Exam conducted with a elementary school band director present. Vitals: There is no height or [...] La Cruz DO documented in this encounter [facility] Evaluation note 08-12-2022 Note Date [...] Jul, History of asthma (ICD-10 - Z87.09) [employer] Other Evaluation note Note Date & Type Note Facility Evaluation note Diagnosis Nausea and vomiting, unspecified vomiting type Missed menses documented in this encounter [facility] Evaluation note Note Date & Type Note Facility Evaluation note Diagnosis Missed menses Active asthma ([facility]) Unspecified asthma Upper respiratory tract infection, unspecified type documented in this encounter [facility] History general Narrative - Reported Note Date & Type Note Facility History general Narrative - Reported Type Medical History asthma Surgical History C section [employer] Other Summary Purpose Family History No Family History Records FoundNo Family History Records FoundNo Family History Records Found Advance Directives No Advanced Directives Records FoundNo Advanced Directives Records FoundNo Advanced Directives Records Found Additional Source Comments INFORMATION SOURCE (unrecogn ized section and content) DATE CREATED AUTHOR 11/17/2017 [facility] DATE CREATED AUTHOR AUTHOR'S ORGANIZ ATION 12/10/2021 [facility] DATE CREATED AUTHOR AUTHOR'S ORGANIZ ATION 10/13/2023 [facility] EPIC REASON FOR VISIT [...] BE BASED ON THE PRIMARY CLINICAL RECORDS. [facility] provides no warranty or guarantee of the accuracy or completeness of information in this document.
[2023-11-15 12:09] LABS: Basophils Percent Auto 0.3 % (0.2-2.0); Eosinophils Absolute Auto 0.1 10^3/uL (0.0-0.7); Hematocrit 32.5 % (36.0-48.0); Hemoglobin 10.4 g/dL (12.0-16.0); Immature Granulocytes Abs Auto 0.03 10^3/uL (0.00-0.03); Immature Granulocytes Pct Auto 0.4 % (0.0-0.5); Lymphocytes Absolute Auto 1.8 10^3/uL (1.2-3.8); Lymphocytes Percent Auto 24.2 % (20.5-60.0); Mean Corpuscular Hemoglobin 28.3 pg (26.7-34.0); Mean Corpuscular Volume 88.3 fL (81.0-99.0); Mean Platelet Volume 9.8 fL (9.5-13.5); Monocytes Absolute Auto 0.5 10^3/uL (0.3-0.8); Monocytes Percent Auto 7.2 % (1.7-12.0); Neutrophils Absolute Auto 4.8 10^3/uL (1.4-6.5); Neutrophils Percent Auto 66.9 % (43.0-75.0); Platelet Count 353 10^3/uL (150-450); Red Blood Count 3.68 10^6/uL (4.20-5.40); Red Cell Distribution Width 13.8 % (11.0-15.0); White Blood Count 7.2 10^3/uL (4.0-11.0)
[2023-11-15 12:27] LABS: Glucose 1 Hour 114 mg/dL (<130)
== END 2023-11-15 10:47 | disposition home or self-care (01) ==
LOC: LAB 10:47
PROVIDERS: Visit Provider Obstetrics & Gynecology
DX: Z13.1 Encounter for screening for diabetes mellitus (principal)
CPT/HCPCS: 36415; 82950; 85025

== ENCOUNTER 2023-12-04 10:30 | Observation (INO) | payer MEDICAID, SELFPAY ==
[2023-12-04 10:40] VITALS: BP 112/74; PULSE 109
[2023-12-04] MEDS: ACETAMINOPHEN 300 MG/ 30 MG CODEINE TABLET 1 TAB PO (11:55)
[2023-12-04] MEDS: PROMETHAZINE HCL 12.5 MG in 0.9 % SODIUM CHLORIDE 50 ML 202 MG IV (12:05)
[2023-12-04] MEDS: 0.9 % SODIUM CHLORIDE 1,000 ML 999 ML IV (12:05)
[2023-12-04 12:21] LABS: Bilirubin Urine NEGATIVE (NEGATIVE); Blood Urine NEGATIVE (NEGATIVE); Clarity Urine CLEAR (CLEAR); Color Urine YELLOW (YELLOW); Glucose Urine UA NEGATIVE (NEGATIVE); Ketones Urine NEGATIVE (NEGATIVE); Leukocyte Esterase Urine NEGATIVE (NEGATIVE); Nitrite Urine NEGATIVE (NEGATIVE); Protein Urine NEGATIVE (NEG/TRACE); Specific Gravity Urine 1.025 (1.005-1.025); Urobilinogen Urine 0.2 EU/dL (0.2-1.0); pH Urine 6.5 (5.0-9.0)
[2023-12-04 12:23] LABS: Urine Microscopic Indicated NO
[2023-12-04] MEDS: FLUCONAZOLE 150 MG TABLET PO (12:30)
== END 2023-12-04 13:52 | disposition home or self-care (01) ==
PROVIDERS: Admitting Provider Obstetrics & Gynecology; Visit Provider Obstetrics & Gynecology
DX: O26.893 Other specified pregnancy related conditions, third trimester (principal); R51.9 Headache, unspecified; H53.8 Other visual disturbances; R11.0 Nausea; R10.30 Lower abdominal pain, unspecified; Z3A.30 30 weeks gestation of pregnancy
CPT/HCPCS: 59025; 81003; 96374; G0378; G0379; J2250

== ENCOUNTER 2023-12-06 14:08 | Outpatient (OUT) | payer MEDICAID, SELFPAY ==
--- NOTE | 2023-12-06 14:10 | US_ITS ---
[address] [address] Patient Name: CARYN JERRY MRN: [id number] date: 2000 Sex: F Assigned Patient Location: [facility] Current Patient Location: [facility] Accession/Order Number: [id number] Exam Date: 12/06/2023 14:10 Report Date: 12/06/2023 15:12 At the request of: MILE RING Procedure: US OB growth EXAMINATION: US OB growth HISTORY: SIZE INCONSISTENT WITH DATES COMPARISON: No relevant comparison available. FINDINGS: Heart Rate: 128 bpm Amniotic Fluid Volume: 13.4 cm, largest fluid pocket 6.5 cm Number: 1 Position: Cephalic presentation, longitudinal lie BIOMETRY: BPD: 7.48 cm cm; 30 weeks 0 days; 11.10 %% HC: 28 cm cm; 30 weeks 5 days; 8 %% AC: 26.24 cm cm; 30 weeks 3 days; 24.60 %% FL: 6.04 cm cm; 31 weeks 3 days; 43.30 %% EFW: 1514.17 g; 24.40 %, 3 lbs. 9 oz. FL/AC: 23.02 FL/BPD: 80.75 HC/AC: 1.07 GESTATIONAL AGE: Age by EDC: 31 weeks 1 day [place] by EDC: 2024-02-06 Age by US: 30 weeks 5 days [place] by US: 2024-02-09 US/US OB growth IMPRESSION: Normal interval growth Electronically authenticated by: NINFA [place] Date: 12/06/2023 15:12
--- OUTSIDE RECORDS SUMMARY | 2023-12-06 14:23 | XMS_ITS | CCD ---
Author Organization [facility] Care Team Providers Care Chip Separator Name Role Phone Emery Mitchell Unavailable Unavailable Emery Mitchell Unavailable Unavailable NONE, XXXX Unavailable Unavailable DOROTHY, DR TREADWELL Attending Unavailable DR MILE DE LA CRUZ Consulting Unavailable DR MILE DE LA CRUZ Admitting Unavailable Catrachita Sloan Unavailable Unavailable Primary Care Provider UnavailJAMES Medina Attending Unavailable MILE DE LA CRUZ Primary Care Unavailable MILE DE LA CRUZ Attending Unavailable MILE DE LA CRUZ Attending Unavailable BERNADETTE LACKEY Attending Unavailable MILE DE LA CRUZ Attending Unavailable MILE DE LA CRUZ Attending Unavailable Allergies Allergy Classification Reported Allergen(s) Allergy Type Date of Onset Reaction(s) Facility (3 sources) Octacosanol Propensity to adverse reactions 4 [facility] Work Phone: Medications Current Medications Medication Drug Class(es) Dates Sig (Normalized) Sig (Original) 200 actuat albuterol 0.09 mg/actuat dry powder inhaler (3 sources) beta2-Adrenergic Agonist Start: 06-28-2023 End: 07-01-2024 take 2 puff(s) by inhalation every four hours for wheezing albuterol (ProAir RespiClick) 90 mcg/act breath-activated inhaler Indications: Active asthma ([facility]) Inhale 2 puffs every 4 (four) hours if needed for wheezing 1 each 11 07/02/2023 07/01/2024 Active Start: 08-12-2022 take 2 [...] menstruation, unspecified] 06-25-2023 Chronic Nausea and vomiting (3 sources) Nausea and vomiting; Translations: [Nausea with vomiting, unspecified] Onset: 11-19-2023 06-22-2023 Episodic Other female genital disorders (1 [...] Test Name Value Interpretation Reference Range Facility CBC with Diffon 11-19-2023 Abs. Basophil 0.03 k/uL Normal 0.00-0.20 [facility] Comment on above: Performed By: #### L LUKE HAN, CDP #### [facility] [address] [place] [address] Dr. [place] [id number] Heating And Ventilating Worker: Riley Cabrera MD Abs.Imm.Granulocyte <0.03 Normal 0.00-0.30 [facility] Comment on above: Performed By: #### L LUKE HAN, CDP #### [address] [place] [id number] Heating And Ventilating Worker: Riley Cabrera MD Abs.Neutrophil (Seg) 5.75 k/uL Normal 1.50-8.10 [facility] Comment on above: Performed By: #### L LUKE HAN, CDP #### [address] [place] [id number] Heating And Ventilating Worker: Riley Cabrera MD Basophils/100 WBC (Bld) 0 % Normal 0-2 [facility] Comment on above: Performed By: #### L LUKE HAN, CDP #### [address] [place] [id number] Heating And Ventilating Worker: Riley Cabrera MD Eosinophils (Bld) [#/Vol] 0.07 10*3/uL Normal 0.00-0.44 [facility] Comment on above: Performed By: #### L IP CP, CDP #### [address] [place] [id number] Heating And Ventilating Worker: Riley Cabrera MD Eosinophils/100 WBC (Bld) 1 % Normal 1-4 [facility] Comment on above: Performed By: #### L IP CP, CDP #### [address] [place] [address] Heating And Ventilating Worker: Riley Cabrera MD Erythrocyte distribution width (RBC) [Ratio] 13.8 % Normal 11.8-14.4 [facility] Comment on above: Performed By: #### L EMELY CP, CDP #### [address] [place] [id number] Heating And Ventilating Worker: Riley Cabrera MD Hematocrit (Bld) [Volume fraction] 33.5 % Low 36.3-47.1 [facility] Comment on above: Performed By: #### L LUKE HAN, CDP #### [address] [place] [address] Heating And Ventilating Worker: Riley Cabrera MD Hemoglobin (Bld) [Mass/Vol] 11.3 g/dL Low 11.9-15.1 [facility] Comment on above: Performed By: #### L EMELY CP, CDP #### [address] [place] [address] Heating And Ventilating Worker: Riley Cabrear MD Immature granulocytes/100 WBC (Bld) 0 % Normal 0 [facility] Comment on above: Performed By: #### L IP CP, CDP #### [address] [place] [id number] Heating And Ventilating Worker: Riley Cabrera MD Lymphocytes (Bld) [#/Vol] 2.05 10*3/uL Normal 1.10-3.70 [facility] Comment on above: Performed By: #### L IP, CP, CDP #### [facility] [address] [place], [facility]83 Heating And Ventilating Worker: Riley Cabrera MD Lymphocytes/100 WBC (Bld) 24 % Normal 24-43 [facility] Comment on above: Performed By: #### L IP, CP, CDP #### [facility] [address] [place], [place] [address] Heating And Ventilating Worker: Riley Cabrera MD MCH (RBC) [Entitic mass] 29.1 pg Normal 25.2-33.5 [facility] Comment on above: Performed By: #### L IP, CP, CDP #### [address] [place], [facility]83 Heating And Ventilating Worker: Riley Cabrera MD MCHC (RBC) [Mass/Vol] 33.7 g/dL Normal 28.4-34.8 [facility] Comment on above: Performed By: #### L IP, CP, CDP #### [address] [place], [facility]83 Heating And Ventilating Worker: Riley Cabrera MD MCV (RBC) [Entitic vol] 86.3 fL Normal 82.6-102.9 [facility] Comment on above: Performed By: #### L IP, CP, CDP #### [address] [place], [place] [address] Heating And Ventilating Worker: Riley Cabrera MD Monocytes (Bld) [#/Vol] 0.56 10*3/uL Normal 0.10-1.20 [facility] Comment on above: Performed By: #### L IP, CP, CDP #### [address] [place], [facility]83 Heating And Ventilating Worker: Riley Cabrera MD Monocytes/100 WBC (Bld) 7 % Normal 3-12 [facility] Comment on above: Performed By: #### L IP, CP, CDP #### [facility] [address] [place], [place] [phone] Heating And Ventilating Worker: Riley Cabrera MD Neutrophil (Seg) 68 % High 36-65 [facility] Comment on above: Performed By: #### L IP, CP, CDP #### [address] [place], [place] [id number] Heating And Ventilating Worker: Riley Cabrera MD NRBC Automated 0.0 per 100 WBC Normal 0.0 [facility] Comment on above: Performed By: #### L IP, CP, CDP #### [address] [place], [place] [phone] Heating And Ventilating Worker: Riley Cabrera MD Platelet mean volume (Bld) [Entitic vol] 9.7 fL Normal 8.1-13.5 [facility] Comment on above: Performed By: #### L IP, CP, CDP #### [address] [place], [place] [id number] Heating And Ventilating Worker: Riley Cabrera MD Platelets (Bld) [#/Vol] 393 10*3/uL Normal 138-453 [facility] Comment on above: Performed By: #### L IP, CP, CDP #### [address] [place], [place] [id number] Heating And Ventilating Worker: Riley Cabrera MD RBC (Bld) [#/Vol] 3.88 10*6/uL Low 3.95-5.11 [facility] Comment on above: Performed By: #### L IP, CP, CDP #### [address] [place], [place] [phone] Heating And Ventilating Worker: Riley Cabrera MD WBC (Bld) [#/Vol] 8.5 10*3/uL Normal 3.5-11.3 [facility] Comment on above: Performed By: #### L IP, CP, CDP #### [address] [place], [place] [id number] Heating And Ventilating Worker: Riley Cabrera MD Comp Metabolic Profon 2023 Albumin [Mass/Vol] 3.3 g/dL Low 3.5-5.2 [facility] Comment on above: Performed By: #### L IP, CP, CDP #### [facility] [address] [place], [place] [phone] Heating And Ventilating Worker: Riley Cabrera MD Albumin/Glob Ratio 1.1 Normal 1.0-2.5 [facility] Comment on above: Performed By: #### L IP, CP, CDP #### [facility] [address] [place], [place] [phone] Heating And Ventilating Worker: Riley Cabrera MD Alkaline Phos 102 U/L Normal 35-104 [facility] Comment on above: Performed By: #### L IP, CP, CDP #### [facility] [address] [place], [place] [phone] Heating And Ventilating Worker: Riley Cabrera MD ALT [Catalytic activity/Vol] 14 U/L Normal 5-33 [facility] Comment on above: Performed By: #### L IP, CP, CDP #### [facility] [address] [place], [place] [phone] Heating And Ventilating Worker: Riley Cabrera MD Anion gap [Moles/Vol] 11 mmol/L Normal 9-17 [facility] Comment on above: Performed By: #### L IP, CP, CDP #### [facility] [address] [place], [place] 0753883 Heating And Ventilating Worker: Riley Cabrera MD AST [Catalytic activity/Vol] 17 U/L Normal <32 [facility] Comment on above: Performed By: #### L IP, CP, CDP #### [facility] [address] [place], [place] [phone] Heating And Ventilating Worker: Riley Cabrera MD Bilirubin [Mass/Vol] 0.6 mg/dL Normal 0.3-1.2 [facility] Comment on above: Performed By: #### L IP, CP, CDP #### [facility] [address] [place] [address] Heating And Ventilating Worker: Riley Cabrera MD BUN/CRE Ratio 18 Normal 9-20 [facility] Comment on above: Performed By: #### L IP, CP, CDP #### [facility] [address] [place], [place] [phone] Heating And Ventilating Worker: Riley Cabrera MD Calcium [Mass/Vol] 8.1 mg/dL Low 8.6-10.4 [facility] Comment on above: Performed By: #### L IP, CP, CDP #### [facility] [address] [place], [place] 6115083 Heating And Ventilating Worker: Riley Cabrera MD Chloride [Moles/Vol] 102 mmol/L Normal 98-107 [facility] Comment on above: Performed By: #### L IP, CP, CDP #### [address] [place], [place] [phone] Heating And Ventilating Worker: Riley Cabrera MD CO2 [Moles/Vol] 22 mmol/L Normal 20-31 [facility] Comment on above: Performed By: #### L IP, CP, CDP #### [facility] [address] [place], [place] [phone] Heating And Ventilating Worker: Riley Cabrera MD Creatinine [Mass/Vol] 0.5 mg/dL Normal 0.5-0.9 [facility] Comment on above: Performed By: #### L IP, CP, CDP #### [facility] [address] [place] [address] Heating And Ventilating Worker: Riley Cabrera MD GFR/1.73 sq M.predicted among non-blacks MDRD (S/P/Bld) [Vol rate/Area] mL/min/{1.73_m2} Normal >60 [facility] Comment on above: Result Comment: These results are not intended for use in patients <18 years of age. eGFR results are calculated without a race factor using the 2020 CKD-EPI equation. Careful clinical correlation is recommended, particularly when comparing to results calculated using previous equations. The CKD-EPI equation is less accurate in patients with extremes of muscle mass, extra-renal metabolism of creatine, excessive creatine ingestion, or following therapy that affects renal tubular secretion. Performed By: #### L EMELY CP, CDP #### [facility] [address] [place] [address] Dr. [place], [place] [phone] Heating And Ventilating Worker: Riley Cabrera MD Glucose [Mass/Vol] 96 mg/dL Normal 70-99 [facility] Comment on above: Performed By: #### L LUKE HAN, CDP #### [address] [place], [place] 5[address]83 Heating And Ventilating Worker: Riley Cabrera MD Potassium [Moles/Vol] 3.3 mmol/L Low 3.7-5.3 [facility] Comment on above: Performed By: #### L EMELY CP, CDP #### [address] [place] [address] Heating And Ventilating Worker: Riley Cabrera MD Protein [Mass/Vol] 6.3 g/dL Low 6.4-8.3 [facility] Comment on above: Performed By: #### L LUKE HAN, CDP #### [address] [place], [place] 8802683 Heating And Ventilating Worker: Riley Cabrera MD Sodium [Moles/Vol] 135 mmol/L Normal 135-144 [facility] Comment on above: Performed By: #### L IP CP, CDP #### [address] [place] [address] Heating And Ventilating Worker: Riley Cabrera MD Urea nitrogen [Mass/Vol] 9 mg/dL Normal 6-20 [facility] Comment on above: Performed By: #### L IP CP, CDP #### [facility] [address] [place], [place] 6241183 Heating And Ventilating Worker: Riley Cabrera MD Lipaseon 11-19-2023 Lipase [Catalytic activity/Vol] 22 U/L Normal 13-60 [facility] Comment on above: Performed By: #### L IP, CP, CDP #### [facility] [address] [place], [place] 1191183 Heating And Ventilating Worker: Riley Cabrera MD UA w/Reflex Cultureon 2023 Bilirubin, SemiQt,Ur Negative Normal NEG [facility] Comment on above: Performed By: #### U MICAO, UAX #### [facility] [address] [place], [place] [phone] Heating And Ventilating Worker: Riley Cabrera MD Blood, Urine Negative Normal NEG [facility] Comment on above: Performed By: #### U MICAO, UAX #### [facility] [address] [place], [place] 1209483 Heating And Ventilating Worker: Riley Cabrera MD Clarity (U) Clear Normal CLEAR [facility] Comment on above: Performed By: #### U MICAO, UAX #### [facility] [address] [place], [place] 4701883 Heating And Ventilating Worker: Riley Cabrera MD Color (U) Yellow Normal YEL [facility] Comment on above: Performed By: #### U MICAO, UAX #### [facility] [address] [place], [place] [phone] Heating And Ventilating Worker: Riley Cabrera MD Glucose Ql (U) Negative Normal NEG [facility] Comment on above: Performed By: #### U MICAO, UAX #### [facility] [address] [place], [place] [phone] Heating And Ventilating Worker: Riley Cabrera MD Ketones Ql (U) 1+ mg/dL Abnormal NEG [facility] Comment on above: Performed By: #### U MICAO, UAX #### [facility] [address] [place], [place] [phone] Heating And Ventilating Worker: Riley Cabrera MD Leukocyte esterase Test strip Ql (U) Negative Normal NEG [facility] Comment on above: Performed By: #### U MICAO, UAX #### [facility] [address] [place], [place] [phone] Heating And Ventilating Worker: Riley Cabrera MD Nitrite,Ur Negative Normal [facility] Comment on above: Performed By: #### U MICAO, UAX #### [facility] [address] [place] [address] Dr. [place], [place] [phone] Heating And Ventilating Worker: Riley Cabrera MD PH,Ur 6.0 Normal 5.0-9.0 [facility] Comment on above: Performed By: #### U MICAO, UAX #### [facility] [address] [place] [address] Dr. [place], [place] [phone] Heating And Ventilating Worker: Riley Cabrera MD Protein Ql (U) Negative Normal NEG [facility] Comment on above: Performed By: #### U MICAO, UAX #### [address] [place], [place] 2583583 Heating And Ventilating Worker: Riley Cabrera MD Spec. Preemption,Ur >1.030 High 1.010-1.020 [facility] Comment on above: Performed By: #### U MICAO, UAX #### [facility] [address] [place] [address] Dr. [place], [place] [phone] Heating And Ventilating Worker: Riley Cabrera MD Urobilinogen,Ur Normal Normal 0.0-1.0 [facility] Comment on above: Performed By: #### U MICAO, UAX #### [facility] [address] [place] [address] Dr. [place], [place] [phone] Heating And Ventilating Worker: Riley Cabrera MD Urinalysis,Microon 06-28-202 4 Bacteria 1+ Abnormal NONE [facility] Comment on above: Performed By: #### U MICAO, UAX #### [facility] [address] [place] [address] Heating And Ventilating Worker: Riley Cabrera MD Crystals LM Nom (Urine sed) 10 TO 20 Abnormal NONE [facility] Comment on above: Result Comment: CALC IUM OXALATE Performed By: #### U MICAO, UAX #### [facility] [address] [place], [place] [phone] Heating And Ventilating Worker: Riley Cabrera MD Epithelial cells LM Ql (Urine sed) 0 TO 2 Normal 0-25 [facility] Comment on above: Performed By: #### U MICAO, UAX #### [facility] [address] [place], [place] [phone] Heating And Ventilating Worker: Riley Cabrera MD Urine RBC's None Normal 0-2 [facility] Comment on above: Performed By: #### U MICAO, UAX #### [facility] [address] [place] [address] Heating And Ventilating Worker: Riley Cabrera MD Urine WBC's None Normal 0-5 [facility] Comment on above: Performed By: #### U MICAO, UAX #### [facility] [address] [place], [facility]83 Heating And Ventilating Worker: Riley Cabrera MD HCG ( test) Ql (U)o n 07-02-2023 Interpretation and review of laboratory results Abnormal [facility] Preg Test, Ur Positive [facility] care [facility] Urinalysis macro (dipstick) panel (U)on 07-02-2023 Bilirubin, UA Negative Negative - 4(70) +++ mg/dL [facility] Blood, UA Negative Negative - 50 Jesse/mcL [facility] Clarity, UA Clear [facility] Color, UA Yellow [facility] Glucose, UA Negative Negative - 2000(110) ++++ mg/dL [facility] Interpretation and review of laboratory results Abnormal [facility] re Ketones, UA Negative Negative - 160(16) ++++ mg/dL [facility] Leukocytes, UA Negative Negative - 500+++ [place]/mcL [facility] Nitrite, UA Negative Negative - Positive [facility] pH, UA 6.0 5 - 9 [facility] Protein, UA Negative Negative - 2000(20) ++++ mg/dL [facility] Spec Grav, UA 1.010 1 - 1.03 [facility] Urobilinogen, UA 2.0 0.2 - 12 mg/dL [facility] COVID/FLU RT-PCRon 3 SARS-CoV-2 (COVID-19) RNA NANCY+probe Ql (Unsp spec) Positive Search to Phone Other COVID/FLU RT-PCR Negative [facility] [employer] Other PAP ACOG PANEL 2: 21 to 29on 12-08-2021 . . Normal [facility] Comment on above: Performed By: #### [id number] #### [facility] [address] [place] [address] [address] Zonia Jay Age Gdln ACOG Testing - [facility] Comment on above: Performed By: #### [id number] #### [facility] [address] [address] [address] Zonia Jay DIAGNOSIS: Comment [facility] Comment on above: Result Comment: NEGA TIVE FOR INTRAEPITHELIAL LESION OR MALIGNANCY. PREDOMINANCE OF COCCOBACILLI CONSISTENT WITH SHIFT IN VAGINAL DENNIS IS PRESENT. Performed By: #### [id number] #### [facility] [address] [address] [address] Zonia Jay Methodology: Comment [facility] Comment on above: Result Comment: This liquid based ThinPrep(R) pap test was screened with the use of an image guided system. Performed By: #### [id number] #### [facility] [address] [address] [address] Zonia Jay Note: Comment [facility] Comment on above: Result Comment: The Pap smear is a screening test designed to aid in the detection of premalignant and malignant conditions of the uterine cervix. It is not a diagnostic procedure and should not be used as the sole means of detecting cervical cancer. Both false-positive and false-negative reports do occur. . Performed By: #### [id number] #### [facility] [address] [place] [address] Dr. Zonia Jay Performed by: Comment Normal [facility] Comment on above: Result Comment: Jovita Barry Ultrasound Applications Specialist (ASCP) Performed By: #### [id number] #### [facility] [address] [place] [address] Dr. Zonia Jay Reflex Criteria: Comment Normal [facility] Comment on above: Result Comment: The HPV DNA reflex criteria were not met with this specimen result therefore, no HPV testing was performed. . Performed By: #### [id number] #### [facility] [address] [place] [address] Dr. Zonia Jay Specimen adequacy: Comment Normal [facility] Comment on above: Result Comment: Sati sfactory for evaluation. Endocervical and/or squamous metaplastic cells (endocervical component) are present. Performed By: #### 4 [id number] #### [facility] [address] [place] [address] Dr. Zonia Jay CHLAMYDIA/GONOCOCCUS NANCY (SW AB/URINE/PAPon 12-06-2021 Chlamydia trachomatis, NANCY Negative Normal Negative [facility] Comment on above: Performed By: #### C T/NGNA #### [facility] [address] [place] [address] Dr. Zonia Jay Neisseria gonorrhoeae, NANCY Negative Normal Negative [facility] Comment on above: Performed By: #### C T/NGNA #### [facility] [address] [place] [address] Dr. Zonia Jay VAGINITIS/VAGINOSIS DNA PROB Shawn 12-05-2021 Kavya species Negative Normal Negative [facility] Comment on above: Performed By: #### V AGINT #### [facility] [address] [place] [address] Dr. Zonia Jay Gardnerella vaginalis Positive Abnormal Negative [facility] Comment on above: Performed By: #### V AGINT #### [facility] [address] [address] [address] Zonia Jay Trichomonas vaginalis Negative Normal Negative [facility] Comment on above: Performed By: #### V AGINT #### [facility] [address] [address] [address] Zonia Jay Coding Summary.on 12-29-2016 Coding Summary. CODING DATE: 12/29/2016 FINAL [facility] DSC STATUS: Home (Routine DC) PAYOR: Commercial Insurance [...] Stone Date Saved: 12/29/2016 03:53 pm Normal [facility] FSPon 12-28-2016 FIBRIN+FIBRINOGEN FRAGMENTS:MCNC:PT:S ER:QN: >10 and <40 Abnormal <[address] [facility] Comment on above: Result Comment: Resu lts Called To Padmini Carroll ([facility]) By SS And Read Back For Confirmation On 12/28/2016 15:00:43 EDT. Performed By: #### [id number] ####[facility] [address] [place] [address] Vital Signs Date Time Vital Sign Value Performing Clinician Facility 07-02-2023 11:190500 Body weight 65.23 kg InHiro DO Work Phone: [facility] 07-02-2023 11:19-0500 Diastolic blood pressure 70 mm[Hg] InHiro DO Work Phone: [facility] 07-02-2023 11:19-0500 Systolic blood pressure 104 mm[Hg] InHiro DO Work Phone: [facility] 06-22-2023 13:27-0500 Body weight 67.04 kg Mile Dorothy DO Work Phone: [facility] 06-22-2023 13:27-0500 Diastolic blood pressure 74 mm[Hg] Mile Dorothy DO Work Phone: [facility] 06-22-2023 13:27-0500 Systolic blood pressure 112 mm[Hg] Mile Dorothy DO Work Phone: [facility] 08-12-2022 12:10-0400 Body height 154.94 cm Catrachita Sloan Other Search to Phone Other 08-12-2022 12:10-0400 Body mass index (BMI) [Ratio] 26.83 kg/m2 Catrachita Mcnallymond Other [employer] Other 08-12-2022 12:10-0400 Body temperature 99 [degF] Catrachita Sloan Other [employer] Other 08-12-2022 12:10-0400 Body weight 64.41 kg Catrachita Sloan Other Search [employer] Phone Other 08-12-2022 12:10-0400 Respiratory rate 18 /min Catrachita Mcnallymond Other Search [employer] Phone Other 08-12-2022 12:10-0400 SaO2% (BldA) [Mass fraction] 97 % Catrachita Mcnallymond Other Search [employer] Phone Other Encounters Encounter Date Encounter Type Care Provider Facility Start: 11-29-2023 End: 11-29-2023 ambulatory MILE VILCHISZIO Not Available Start: 11-19-2023 End: 11-19-2023 Emergency department patient visit JAMES KRUGER [facility] Start: 11-15-2023 End: 11-15-2023 ambulatory MILE DOROTHY Not Available Start: 10-11-2023 End: 10-11-2023 ambulatory BERNADETTE LACKEY Not Available Start: 08-23-2023 End: 08-23-2023 ambulatory MILE DOROTHY Not Available Start: 07-02-2023 End: 07-02-2023 ambulatory MILE DOROTHY Not Available Start: 07-02-2023 End: 07-02-2023 Office outpatient visit 5 minutes Mile Dorothy DO Work Phone: [facility] Start: 06-22-2023 End: 06-22-2023 Office outpatient visit 15 minutes Mile Dorothy DO Work Phone: [facility] Comment on above: Nausea and vomiting, unspecified vomiting type Start: 06-22-2023 End: 06-22-2023 ambulatory MILE DOROTHY Not Available Start: 08-12-2022 End: 08-12-2022 ambulatory Catrachita Sloan Other Search to Phone Other Start: 08-12-2022 Office outpatient vi sit 15 minutes Catrachita Sloan [facility] Start: 12-03-2021 End: 12-03-[address] MILE DE LA CRUZ Facility: Start: 12-28-2016 End: 12-29-2016 Ambulatory Emery Mitchell Facility:[facility] Procedures Date Procedure Procedure Detail Performing Clinician Start: 07-02-2023 Urnls dip stick/tabl et rgnt non-auto w/o micrscp Mile Dorothy DO Work Phone: Plan of Treatment Date Care Activity Detail Author Start: 08-02-2023 End: 08-02-2023 Patient encounter procedure 08/02/2023 10:20 AM EDT Routine [facility] [address] [place] [id number] Dorothy, Mile, DO [address] [place] [address] [facility] Start: 07-05-2023 End: 07-05-2023 Patient encounter procedure 07/05/2023 10:10 AM EST Office Visit [facility] [address] [place] [id number] Bernadette Lackey PA [address] [place] [address] [facility] Start: 07-02-2023 End: 07-02-2024 ABO/Rh ABO/Rh Lab Routine Missed menses Expected: 07/02/2023 (Approximate), Expires: 07/02/2024 [facility] Comment on above: Expected: 07/02/2023 (Approximate), Expires: 07/02/2024 Start: 07-02-2023 End: 07-02-2024 Blood type and Indirect antibody screen panel - Blood Type and screen Lab Routine Missed menses Expected: 07/02/2023 (Approximate), Expires: 07/02/2024 [facility] Work Phone: Comment on above: Expected: 07/02/2023 (Approximate), Expires: 07/02/2024 Start: 07-02-2023 End: 07-02-2024 US Pelvis transvaginal US OB transvaginal Imaging Routine Missed menses Expected: 07/02/2023 (Approximate), Expires: 07/02/2024 [facility] Comment on above: Expected: 07/02/2023 (Approximate), Expires: 07/02/2024 Start: 07-02-2023 End: 07-02-2023 ambulatory 07/02/2023 10:30 AM EST Initial [facility] [address] [place] [id number] [facility] Start: 07-02-2023 End: 07-02-2023 Professional / ancillary services management 07/02/2023 10:00 AM EST Ancillary Procedure [facility] [address] [place] [id number] [facility] Bacteria identified in Urine by Culture Urine culture Microbiology Routine Missed menses Ordered: 07/02/2023 [facility] Comment on above: Ordered: 07/02/2023 CBC W Auto Different ial panel - Blood CBC and differential Lab Routine Missed menses Ordered: 07/02/2023 [facility] Comment on above: Ordered: 07/02/2023 Hemoglobin A1c measurement Hemoglobin A1c Lab Routine Missed menses Ordered: 07/02/2023 [facility] Comment on above: Ordered: 07/02/2023 Hepatitis B virus surface Ag [Presence] in Serum or Plasma by Immunoassay Hepatitis B surface antigen Lab Routine Missed menses Ordered: 07/02/2023 [facility] Comment on above: Ordered: 07/02/2023 Hepatitis C virus Ab [Presence] in Serum or Plasma by Immunoassay Hepatitis C antibody Lab Routine Missed menses Ordered: 07/02/2023 [facility] Comment on above: Ordered: 07/02/2023 HIV-1/HIV-2 antigen/antibody combination immunoassay HIV-1 and HIV-2 antibodies Lab Routine Missed menses Ordered: 07/02/2023 [facility] Comment on above: Ordered: 07/02/2023 Reagin Ab [Presence] in Serum by RPR RPR Lab Routine Missed menses Ordered: 07/02/2023 [facility] Comment on above: Ordered: 07/02/2023 Rubella antibody, IgG Rubella an tibody, IgG Lab Routine Missed menses Ordered: 07/02/2023 [facility] Comment on above: Ordered: 07/02/2023 Payers Date Payer Category Payer Medicaid [place] [employer] [id number] 2022-Present [address] [place] [address] [id number] 2022 Medicaid [id number] 2016 Unknown 2000 Unknown [id number] 2000 Unknown [id number] 2000 Unknown [id number] 2000 Unknown [id number] 2000 Unknown [id number] 2000 Unknown [id number] 2000 Unknown [id number] 2000 Unknown [id number] 1959 Unknown [id number] Social History Date Type Detail Facility Unknown if ever smoked Search to Phone Other Sex Assigned At Sex Assigned At Bir th Search to Phone Other Tobacco smoking stat [facility] Tobacco smoking consumption unknown [facility] Start: 2000 Sex Assigned At Female [facility] Start: 03-12-2023 Gender identity Identifies as female gender (finding) [facility] Start: 03-12-2023 Sexual orientation Heterosexual (finding) [facility] History of Present illness Narrative 07-02-2023 Melani [...] or undercooked meat, and stay away from [facility]. Patient has also been advised to [...] Healthcare History of Present illness Narrative 06-22-2023 Patsynegar Trujillo LPN - 06/22/2023 1:10 PM EST [...] nursing note reviewed. Exam conducted with a health informatics instructor present. Vitals: There is no height or [...] La Cruz DO documented in this encounter [facility] Evaluation note 08-12-2022 Note [...] Jul, History of asthma (ICD-10 - Z87.09) Search to Phone Other Evaluation note Note Date & Type Note Facility Evaluation note Diagnosis Nausea and vomiting, unspecified vomiting type Missed menses documented in this encounter [facility] Evaluation note Note Date & Type Note Facility Evaluation note Diagnosis Missed menses Active asthma (CMS/[facility]) Unspecified asthma Upper respiratory tract infection, unspecified type documented in this encounter [facility] History general Narrative - Reported Note Date & Type Note Facility History general Narrative - Reported Type Medical History asthma Surgical History C section Search to Phone Other Summary Purpose Family History No Family History Records FoundNo Family History Records FoundNo Family History Records FoundNo Family History Records Found Advance Directives No Advanced Directives Records FoundNo Advanced Directives Records FoundNo Advanced Directives Records FoundNo Advanced Directives Records Found Additional Source Comments INFORMATION SOURCE (unrecogn ized section and content) DATE CREATED AUTHOR 11/17/[address] [facility] DATE CREATED AUTHOR AUTHOR'S ORGANIZ ATION 12/10/2021 [facility] DATE CREATED AUTHOR AUTHOR'S ORGANIZ ATION 11/21/2023 [facility] DATE CREATED AUTHOR AUTHOR'S ORGANIZ ATION 12/06/2023 [facility] EPIC REASON FOR VISIT (unrecogniz [...] BE BASED ON THE PRIMARY CLINICAL RECORDS. [employer] provides no warranty or guarantee of the accuracy or completeness of information in this document.
== END 2023-12-06 14:09 | disposition home or self-care (01) ==
LOC: NOMS 14:08
PROVIDERS: Visit Provider Obstetrics & Gynecology
DX: O26.843 Uterine size-date discrepancy, third trimester (principal); Z3A.30 30 weeks gestation of pregnancy
CPT/HCPCS: 76816

== ENCOUNTER 2024-01-04 13:17 | Observation (INO) | payer MEDICAID, SELFPAY ==
[2024-01-04 13:38] VITALS: BP 115/81; PULSE 93; TEMP 36.5
[2024-01-04 13:56] LABS: Bilirubin Urine NEGATIVE (NEGATIVE); Blood Urine NEGATIVE (NEGATIVE); Clarity Urine CLEAR (CLEAR); Color Urine LT. YELLOW (YELLOW); Glucose Urine UA NEGATIVE (NEGATIVE); Ketones Urine NEGATIVE (NEGATIVE); Leukocyte Esterase Urine SMALL (NEGATIVE); Nitrite Urine NEGATIVE (NEGATIVE); Protein Urine NEGATIVE (NEG/TRACE); Urobilinogen Urine 0.2 EU/dL (0.2-1.0)
[2024-01-04 14:00] LABS: Urine Microscopic Indicated YES
[2024-01-04 14:08] LABS: Bacteria Urine MODERATE #/HPF (NONE SEEN); Cast Seen? NONE SEEN #/LPF (NONE SEEN); Crystals Seen? None Seen #/HPF (None Seen); Mucus Urine TRACE (NONE SEEN); RBC Urine NONE SEEN #/HPF (0-2); Squamous Epithelial Cell Urine MODERATE #/LPF (NONE/RARE); Urine Culture Indicated YES
--- NOTE | 2024-01-04 14:58 | PC.NURSE ---
1455-D/C Instructions given at this time. Pt verbalizes understanding. Pt D/C home self-care.
--- NOTE | 2024-01-04 15:07 | PC.NURSE ---
1450- RN applies abdominal binder for pt at this time.
== END 2024-01-04 14:55 | disposition home or self-care (01) ==
LOC: FBC 13:19
PROVIDERS: Admitting Provider Obstetrics & Gynecology; Visit Provider Obstetrics & Gynecology
DX: O26.893 Other specified pregnancy related conditions, third trimester (principal); R10.30 Lower abdominal pain, unspecified; R10.2 Pelvic and perineal pain; Z3A.35 35 weeks gestation of pregnancy
CPT/HCPCS: 59025; 81001; 87086; G0378; G0379

== ENCOUNTER 2024-01-12 19:28 | Outpatient (REF) | payer MEDICAID, SELFPAY ==
--- OUTSIDE RECORDS SUMMARY | 2024-01-12 19:32 | XMS_ITS | CCD ---
Author Organization [facility] Care Team Providers Care Part Maker Name Role Phone Emery Mitchell Unavailable Unavailable [...] sources) Octacosanol Propensity to adverse reactions 4 [facility] Work Phone: Medications Current Medications Medication Drug Class(es) Dates Sig (Normalized) Sig (Original) 200 actuat albuterol 0.09 mg/actuat dry powder inhaler (3 sources) beta2-Adrenergic Agonist Start: 06-28-2023 End: 07-01-2024 take 2 puff(s) by inhalation every four hours for wheezing albuterol (ProAir RespiClick) 90 mcg/act breath-activated inhaler Indications: Active asthma (CMS/HCC) Inhale 2 puffs every 4 (four) hours [...] 11-19-2023 Abs. Basophil 0.03 k/uL Normal 0.00-0.20 [facility] Comment on above: Performed By: #### L LUKE HAN, CDP #### [address] [place] [id number] Buhr Dresser: Riley Cabrera MD Abs.Imm.Granulocyte <0.03 Normal 0.00-0.30 [facility] Comment on above: Performed By: #### L LUKE HAN, CDP #### [address] [place] [id number] Buhr Dresser: Riley Cabrera MD Abs.Neutrophil (Seg) 5.75 k/uL Normal 1.50-8.10 [facility] Comment on above: Performed By: #### L LUKE HAN, CDP #### [address] [place] [id number] Buhr Dresser: Riley Cabrera MD Basophils/100 WBC (Bld) 0 % Normal 0-2 [facility] Comment on above: Performed By: #### L LUKE HAN, CDP #### [address] [place] [id number] Buhr Dresser: Riley Cabrera MD Eosinophils (Bld) [#/Vol] 0.07 10*3/uL Normal 0.00-0.44 [facility] Comment on above: Performed By: #### L IP CP, CDP #### [address] [place], [place] [id number] Buhr Dresser: Riley Cabrera MD Eosinophils/100 WBC (Bld) 1 % Normal 1-4 [facility] Comment on above: Performed By: #### L EMELY CP, CDP #### [address] [place], [facility] Buhr Dresser: Riley Cabrera MD Erythrocyte distribution width (RBC) [Ratio] 13.8 % Normal 11.8-14.4 [facility] Comment on above: Performed By: #### L EMELY CP, CDP #### [address] [place], [facility] Buhr Dresser: Riley Cabrera MD Hematocrit (Bld) [Volume fraction] 33.5 % Low 36.3-47.1 [facility] Comment on above: Performed By: #### L LUKE HAN, CDP #### [address] [place], [facility] Buhr Dresser: Riley Caberra MD Hemoglobin (Bld) [Mass/Vol] 11.3 g/dL Low 11.9-15.1 [facility] Comment on above: Performed By: #### L LUKE HAN, CDP #### [address] [place], [facility]83 Buhr Dresser: Riley Cabrera MD Immature granulocytes/100 WBC (Bld) 0 % Normal 0 [facility] Comment on above: Performed By: #### L EMELY CP, CDP #### [address] [place], [place] [id number] Buhr Dresser: Riley Cabrera MD Lymphocytes (Bld) [#/Vol] 2.05 10*3/uL Normal 1.10-3.70 [facility] Comment on above: Performed By: #### L IP, CP, CDP #### [facility] [address] [place], [place] [address] Buhr Dresser: Riley Cabrera MD Lymphocytes/100 WBC (Bld) 24 % Normal 24-43 [facility] Comment on above: Performed By: #### L IP, CP, CDP #### [address] [place], [place] [address] Buhr Dresser: Riley Cabrera MD MCH (RBC) [Entitic mass] 29.1 pg Normal 25.2-33.5 [facility] Comment on above: Performed By: #### L IP, CP, CDP #### [address] [place], [facility]83 Buhr Dresser: Riley Cabrera MD MCHC (RBC) [Mass/Vol] 33.7 g/dL Normal 28.4-34.8 [facility] Comment on above: Performed By: #### L IP, CP, CDP #### [address] [place], [facility]83 Buhr Dresser: Riley Cabrera MD MCV (RBC) [Entitic vol] 86.3 fL Normal 82.6-102.9 [facility] Comment on above: Performed By: #### L IP CP, CDP #### [address] [place], [facility]83 Buhr Dresser: Riley Cabrera MD Monocytes (Bld) [#/Vol] 0.56 10*3/uL Normal 0.10-1.20 [facility] Comment on above: Performed By: #### L IP, CP, CDP #### [address] [place], [place] [id number] Buhr Dresser: Riley Cabrera MD Monocytes/100 WBC (Bld) 7 % Normal 3-12 [facility] Comment on above: Performed By: #### L IP, CP, CDP #### [facility] [address] [place], [place] [phone] Buhr Dresser: Riley Cabrera MD Neutrophil (Seg) 68 % High 36-65 [facility] Comment on above: Performed By: #### L IP, CP, CDP #### [place] [address] [place], [place] [id number] Buhr Dresser: Riley Cabrera MD NRBC Automated 0.0 per 100 WBC Normal 0.0 [facility] Comment on above: Performed By: #### L IP, CP, CDP #### [address] [place], [place] [id number] Buhr Dresser: Riley Cabrera MD Platelet mean volume (Bld) [Entitic vol] 9.7 fL Normal 8.1-13.5 [facility] Comment on above: Performed By: #### L IP, CP, CDP #### [address] [place], [place] [phone] Buhr Dresser: Riley Cabrera MD Platelets (Bld) [#/Vol] 393 10*3/uL Normal 138-453 [facility] Comment on above: Performed By: #### L IP, CP, CDP #### [address] [place], [place] [id number] Buhr Dresser: Riley Cabrera MD RBC (Bld) [#/Vol] 3.88 10*6/uL Low 3.95-5.11 [facility] Comment on above: Performed By: #### L IP, CP, CDP #### [address] [place], [place] [phone] Buhr Dresser: Riley Cabrera MD WBC (Bld) [#/Vol] 8.5 10*3/uL Normal 3.5-11.3 [facility] Comment on above: Performed By: #### L IP, CP, CDP #### [facility] [address] [place], [place] [phone] Buhr Dresser: Riley Cabrera MD Comp Metabolic Profon 2023 Albumin [Mass/Vol] 3.3 g/dL Low 3.5-5.2 [facility] Comment on above: Performed By: #### L IP, CP, CDP #### [facility] [address] [place], [place] [phone] Buhr Dresser: Riley Cabrera MD Albumin/Glob Ratio 1.1 Normal 1.0-2.5 [facility] Comment on above: Performed By: #### L IP, CP, CDP #### [facility] [address] [place], [place] [phone] Buhr Dresser: Riley Cabrera MD Alkaline Phos 102 U/L Normal 35-104 [facility] Comment on above: Performed By: #### L IP, CP, CDP #### [facility] [address] [place], [place] [phone] Buhr Dresser: Riley Cabrera MD ALT [Catalytic activity/Vol] 14 U/L Normal 5-33 [facility] Comment on above: Performed By: #### L IP, CP, CDP #### [facility] [address] [place], [place] 1760883 Buhr Dresser: Riley Cabrera MD Anion gap [Moles/Vol] 11 mmol/L Normal 9-17 [facility] Comment on above: Performed By: #### L IP, CP, CDP #### [facility] [address] [place], [place] [phone] Buhr Dresser: Riley Cabrera MD AST [Catalytic activity/Vol] 17 U/L Normal <32 [facility] Comment on above: Performed By: #### L IP, CP, CDP #### [facility] [address] [place], [place] [phone] Buhr Dresser: Riley Cabrera MD Bilirubin [Mass/Vol] 0.6 mg/dL Normal 0.3-1.2 [facility] Comment on above: Performed By: #### L IP, CP, CDP #### [facility] [address] [place], [place] 3892983 Buhr Dresser: Riley Cabrera MD BUN/CRE Ratio 18 Normal 9-20 [facility] Comment on above: Performed By: #### L IP, CP, CDP #### [facility] [address] [place], [place] [phone] Buhr Dresser: Riley Cabrera MD Calcium [Mass/Vol] 8.1 mg/dL Low 8.6-10.4 [facility] Comment on above: Performed By: #### L IP, CP, CDP #### [address] [place], [place] 3878783 Buhr Dresser: Riley Cabrera MD Chloride [Moles/Vol] 102 mmol/L Normal 98-107 [facility] Comment on above: Performed By: #### L IP, CP, CDP #### [address] [place], [place] 8347783 Buhr Dresser: Riley Cabrera MD CO2 [Moles/Vol] 22 mmol/L Normal 20-31 [facility] Comment on above: Performed By: #### L IP, CP, CDP #### [facility] [address] [place] [address] Dr. [place], [place] [phone] Buhr Dresser: Riley Cabrera MD Creatinine [Mass/Vol] 0.5 mg/dL Normal 0.5-0.9 [facility] Comment on above: Performed By: #### L IP, CP, CDP #### [address] [place], [place] 4153983 Buhr Dresser: Riley Cabrera MD GFR/1.73 sq M.predicted among non-blacks MDRD (S/P/Bld) [Vol rate/Area] mL/min/{1.73_m2} Normal >60 [facility] Comment on above: Result Comment: These [...] renal tubular secretion. Performed By: #### L LUKE HAN, CDP #### [facility] [address] [place] [address] [place] [address] Buhr Dresser: Riley Cabrera MD Glucose [Mass/Vol] 96 mg/dL Normal 70-99 [facility] Comment on above: Performed By: #### L EMELY CP, CDP #### [address] [place] [address] Buhr Dresser: Riley Cabrera MD Potassium [Moles/Vol] 3.3 mmol/L Low 3.7-5.3 [facility] Comment on above: Performed By: #### L LUKE HAN, CDP #### [address] [place] [address] Buhr Dresser: Riley Cabrera MD Protein [Mass/Vol] 6.3 g/dL Low 6.4-8.3 [facility] Comment on above: Performed By: #### L EMELY CP, CDP #### [facility] [address] [place] [address] [place] [address] Buhr Dresser: Riley Cabrera MD Sodium [Moles/Vol] 135 mmol/L Normal 135-144 [facility] Comment on above: Performed By: #### L EMELY CP, CDP #### [address] [place] [address] Buhr Dresser: Riley Cabrera MD Urea nitrogen [Mass/Vol] 9 mg/dL Normal 6-20 [facility] Comment on above: Performed By: #### L IP, CP, CDP #### [facility] [address] [place], [place] [phone] Buhr Dresser: Riley Cabrera MD Lipaseon 11-19-2023 Lipase [Catalytic activity/Vol] 22 U/L Normal 13-60 [facility] Comment on above: Performed By: #### L IP, CP, CDP #### [facility] [address] [place], [place] [phone] Buhr Dresser: Riley Cabrera MD UA w/Reflex Cultureon 2023 Bilirubin, SemiQt,Ur Negative Normal NEG [facility] Comment on above: Performed By: #### U MICAO, UAX #### [address] [place], [place] [phone] Buhr Dresser: Riley Cabrera MD Blood, Urine Negative Normal NEG [facility] Comment on above: Performed By: #### U MICAO, UAX #### [facility] [address] [place], [place] [phone] Buhr Dresser: Riley Cabrera MD Clarity (U) Clear Normal CLEAR [facility] Comment on above: Performed By: #### U MICAO, UAX #### [facility] [address] [place], [place] 9702583 Buhr Dresser: Riley Cabrera MD Color (U) Yellow Normal YEL [facility] Comment on above: Performed By: #### U MICAO, UAX #### [facility] [address] [place], [place] [phone] Buhr Dresser: Riley Cabrera MD Glucose Ql (U) Negative Normal NEG [facility] Comment on above: Performed By: #### U MICAO, UAX #### [facility] [address] [place], [place] 0007183 Buhr Dresser: Riley Cabrera MD Ketones Ql (U) 1+ mg/dL Abnormal NEG [facility] Comment on above: Performed By: #### U MICAO, UAX #### [facility] [address] [place] [address] Dr. [place], [place] [address] Buhr Dresser: Riley Cabrera MD Leukocyte esterase Test strip Ql (U) Negative Normal NEG [facility] Comment on above: Performed By: #### U MICAO, UAX #### [facility] [address] [place] [address] Dr. [place], [facility]83 Buhr Dresser: Riley Cabrera MD Nitrite,Ur Negative Normal NEG [facility] Comment on above: Performed By: #### U MICAO, UAX #### [address] [place], [place] [address] Buhr Dresser: Riley Cabrera MD PH,Ur 6.0 Normal 5.0-9.0 [facility] Comment on above: Performed By: #### U MICAO, UAX #### [facility] [address] [place] [address] Dr. [place], [facility]83 Buhr Dresser: Riley Cabrera MD Protein Ql (U) Negative Normal NEG [facility] Comment on above: Performed By: #### U MICAO, UAX #### [facility] [address] [place] [address] Dr. [place], [facility]83 Buhr Dresser: Riley Cabrera MD Spec. [place],Ur >1.030 High 1.010-1.020 [facility] Comment on above: Performed By: #### U MICAO, UAX #### [facility] [address] [place] [address] Dr. [place], [place] [phone] Buhr Dresser: Riley Cabrera MD Urobilinogen,Ur Normal Normal 0.0-1.0 [facility] Comment on above: Performed By: #### U MICAO, UAX #### [facility] [address] [place] [address] Dr. [place], [place] [phone] Buhr Dresser: Riley Cabrera MD Urinalysis,Microon 4 Bacteria 1+ Abnormal NONE [facility] Comment on above: Performed By: #### U MICAO, UAX #### [facility] [address] [place] [address] Buhr Dresser: Riley Cabrera MD Crystals LM Nom (Urine sed) 10 TO 20 Abnormal NONE [facility] Comment on above: Result Comment: CALC IUM OXALATE Performed By: #### U MICAO, UAX #### [facility] [address] [place] [address] Buhr Dresser: Riley Cabrera MD Epithelial cells LM Ql (Urine sed) 0 TO 2 Normal 0-25 [facility] Comment on above: Performed By: #### U MICAO, UAX #### [facility] [address] [place] [address] Buhr Dresser: Riley Cabrera MD Urine RBC's None Normal 0-2 [facility] Comment on above: Performed By: #### U MICAO, UAX #### [facility] [address] [place] [address] Buhr Dresser: Riley Cabrera MD Urine WBC's None Normal 0-5 [facility] Comment on above: Performed By: #### U MICAO, UAX #### [facility] [address] [place], [facility]83 Buhr Dresser: Riley Cabrera MD HCG ( test) Ql (U)o n 07-02-2023 Interpretation and review of laboratory results Abnormal [facility] Preg Test, Ur Positive [facility] care [facility] Urinalysis macro (dipstick) panel (U)on 07-02-2023 Bilirubin, UA Negative Negative - 4(70) +++ mg/dL [facility] Blood, UA Negative Negative - 50 Jesse/mcL [facility] Clarity, UA Clear [facility] Color, UA Yellow [facility] Glucose, UA Negative Negative - 2000(110) ++++ mg/dL [facility] Interpretation and review of laboratory results Abnormal [facility] re Ketones, UA Negative Negative - 160(16) ++++ mg/dL [facility] Leukocytes, UA Negative Negative - 500+++ [place]/mcL [facility] Nitrite, UA Negative Negative - Positive [facility] pH, UA 6.0 5 - 9 [facility] e Protein, UA Negative Negative - 1999(20) ++++ mg/dL [facility] Spec Grav, UA 1.010 1 - 1.03 [facility] Urobilinogen, UA 2.0 0.2 - 12 mg/dL [facility] COVID/FLU RT-PCRon 3 SARS-CoV-2 (COVID-19) RNA NANCY+probe Ql (Unsp spec) Positive [facility] Other COVID/FLU RT-PCR Negative [facility] [employer] [place] Other PAP ACOG PANEL 2: 21 to 29on 12-08-2021 . . Normal [facility] Comment on above: Performed By: #### [id number] #### [facility] [address] [address] [address] Zonia Jay Age Gdln ACOG Testing - [facility] Comment on above: Performed By: #### 4 [id number] #### [facility] [address] [address] [address] Zonia Jay DIAGNOSIS: Comment [facility] Comment on above: Result Comment: NEGA TIVE FOR INTRAEPITHELIAL LESION OR MALIGNANCY. PREDOMINANCE OF COCCOBACILLI CONSISTENT WITH SHIFT IN VAGINAL DENNIS IS PRESENT. Performed By: #### [id number] #### [facility] [address] [address] [address] Zonia Jay Methodology: Comment [facility] Comment on above: Result Comment: This liquid based ThinPrep(R) pap test was screened with the use of an image guided system. Performed By: #### 4 [id number] #### [facility] [address] [address] [address] Zonia Jay Note: Comment [facility] Comment on above: Result Comment: The Pap smear is a screening test designed to aid in the detection of premalignant and malignant conditions of the uterine cervix. It is not a diagnostic procedure and should not be used as the sole means of detecting cervical cancer. Both false-positive and false-negative reports do occur. . Performed By: #### 4 [id number] #### [facility] [address] [place] [address] Dr. Zonia Jay Performed by: Comment Normal [facility] Comment on above: Result Comment: Jovita Barry Owner/Operator (ASCP) Performed By: #### [id number] #### [facility] [address] [place] [address] Dr. Zonia Jay Reflex Criteria: Comment Normal [facility] Comment on above: Result Comment: The HPV DNA reflex criteria were not met with this specimen result therefore, no HPV testing was performed. . Performed By: #### 4 [id number] #### [facility] [address] [place] [address] Dr. Zonia Jay Specimen adequacy: Comment Normal [facility] Comment on above: Result Comment: Sati sfactory for evaluation. Endocervical and/or squamous metaplastic cells (endocervical component) are present. Performed By: #### 4 [id number] #### [facility] [address] [place] [address] Dr. Zonia Jay CHLAMYDIA/GONOCOCCUS NANCY (SW AB/URINE/PAPon 12-06-2021 Chlamydia trachomatis, NANCY Negative Normal Negative [facility] Comment on above: Performed By: #### C T/NGNA #### [facility] [address] [place] [address] Dr. Zonia Jay Neisseria gonorrhoeae, NANCY Negative Normal Negative [facility] Comment on above: Performed By: #### C T/NGNA #### [facility] [address] [place] [address] Dr. Zonia Jay VAGINITIS/VAGINOSIS DNA PROB Shawn 12-05-2021 Kavya species Negative Normal Negative [facility] Comment on above: Performed By: #### V AGINT #### [facility] [address] [place] [address] Dr. Zonia Jay Gardnerella vaginalis Positive Abnormal Negative [facility] Comment on above: Performed By: #### V AGINT #### [facility] [address] [address] [address] Zonia Jay Trichomonas vaginalis Negative Normal Negative [facility] Comment on above: Performed By: #### V AGINT #### [facility] [address] [address] [address] Zonia Jay Coding Summary.on 12-29-2016 Coding Summary. CODING DATE: 12/29/2016 FINAL [facility] DSCH STATUS: Home (Routine DC) PAYOR: Commercial Insurance [...] Stone Date Saved: 12/29/2016 03:[address] [facility] FSPon 12-28-2016 FIBRIN+FIBRINOGEN FRAGMENTS:MCNC:PT:S ER:QN: >10 and <40 [address] <10 [facility] Comment on above: Result Comment: Resu lts Called To Padmini Carroll ([facility]) By SS And Read Back For Confirmation On 12/28/2016 15:00:43 EDT. Performed By: #### [id number] ####[facility] [id number] [place] [address] Vital Signs Date Time Vital Sign Value Performing Clinician Facility 07-02-2023 11:0500 Body weight 65.23 kg Eureka King DO Work Phone: [facility] 07-02-2023 11:19-0500 Diastolic blood pressure 70 mm[Hg] Eureka King DO Work Phone: [facility] 07-02-2023 11:19-0500 Systolic blood pressure 104 mm[Hg] Mile Dorothy DO Work Phone: [facility] 06-22-2023 13:27-0500 Body weight 67.04 kg Mile Dorothy DO Work Phone: [facility] 06-22-2023 13:27-0500 Diastolic blood pressure 74 mm[Hg] Mile Dorothy DO Work Phone: [facility] 06-22-2023 13:27-0500 Systolic blood pressure 112 mm[Hg] Mile Dorothy DO Work Phone: [facility] 08-12-2022 12:10-0400 Body height 154.94 cm Catrachita Mcnallymond Other [facility] Other 08-12-2022 12:10-0400 Body mass index (BMI) [Ratio] 26.83 kg/m2 Catrachita Nathalia Other [facility] Other 08-12-2022 12:10-0400 Body temperature 99 [degF] Catrachita Mcnallymond Other [facility] Other 08-12-2022 12:10-0400 Body weight 64.41 kg Catrachita Sloan Other [facility] Other 08-12-2022 12:10-0400 Respiratory rate 18 /min Catrachita Nathalia Other [facility] Other 08-12-2022 12:10-0400 SaO2% (BldA) [Mass fraction] 97 % Catrachita Mcnallymond Other [facility] Other Encounters Encounter Date Encounter Type Care Provider Facility Start: 12-28-2023 End: 12-28-2023 ambulatory BERNADETTE MEJÍAEY Not Available Start: 11-29-2023 End: 11-29-2023 ambulatory MILE DE LA CRUZ Not Available Start: 11-19-2023 End: 11-19-2023 Emergency department patient visit JAMES KRUGER [facility] Start: 11-15-2023 End: 11-15-2023 ambulatory MILE DOROHTY Not Available Start: 10-11-2023 End: 10-11-2023 ambulatory [...] 08-12-2022 End: 08-12-2022 ambulatory Catrachita Sloan Other [facility] Other Start: 08-12-2022 Office outpatient vi sit 15 minutes Catrachita Sloan [facility] Start: 12-03-2021 End: 12-03-[address] MILE DE LA CRUZ Facility: Start: 12-28-2016 End: 12-29-2016 Ambulatory Emery Mitchell Facility:[facility] Procedures Date Procedure Procedure Detail Performing Clinician Start: 07-02-2023 Urnls dip stick/tabl et rgnt non-auto w/o micrscp Mile Dorothy DO Work Phone: Plan of Treatment Date Care Activity Detail Author Start: 08-02-2023 End: 08-02-2023 Patient encounter procedure 08/02/2023 10:20 AM EDT Routine [facility] [address] [place] [id number] Mile De La Cruz, DO [address] [place] [address] [facility] Start: 07-05-2023 End: 07-05-2023 Patient encounter procedure 07/05/2023 10:10 AM EST Office Visit [facility] [address] [id number] Bernadette Lackey PA [address] [place], [place] [id number] [facility] Start: 07-02-2023 End: 07-02-2024 ABO/Rh ABO/Rh Lab Routine Missed menses Expected: 07/02/2023 (Approximate), Expires: 07/02/2024 [facility] Comment on above: Expected: 07/02/2023 (Approximate), Expires: 07/02/2024 Start: 07-02-2023 End: 07-02-2024 Blood type and Indirect antibody screen panel - Blood Type and screen Lab Routine Missed menses Expected: 07/02/2023 (Approximate), Expires: 07/02/2024 [facility] Healthcare Work Phone: Comment on above: Expected: 07/02/2023 (Approximate), Expires: 07/02/2024 Start: 07-02-2023 End: 07-02-2024 US Pelvis transvaginal US OB transvaginal Imaging Routine Missed menses Expected: 07/02/2023 (Approximate), Expires: 07/02/2024 [facility] Comment on above: Expected: 07/02/2023 (Approximate), Expires: 07/02/2024 Start: 07-02-2023 End: 07-02-2023 ambulatory 07/02/2023 10:30 AM EST Initial [facility] [address] [place] [id number] [facility] Start: 07-02-2023 End: 07-02-2023 Professional / ancillary services management 07/02/2023 10:00 AM EST Ancillary Procedure [facility] [address] [place] [id number] [facility] Bacteria identified in Urine by Culture Urine culture Microbiology Routine Missed menses Ordered: 07/02/2023 [facility] Comment on above: Ordered: 07/02/2023 CBC W Auto Different ial panel - Blood CBC and differential Lab Routine Missed menses Ordered: 07/02/2023 [facility] Comment on above: Ordered: 07/02/2023 Hemoglobin A1c measurement Hemoglobin A1c Lab Routine Missed menses Ordered: 07/02/2023 [facility] Comment on above: Ordered: 07/02/2023 Hepatitis B virus surface Ag [Presence] in Serum or Plasma by Immunoassay Hepatitis B surface antigen Lab Routine Missed menses Ordered: 07/02/2023 [facility] Comment on above: Ordered: 07/02/2023 Hepatitis C virus Ab [Presence] in Serum or Plasma by Immunoassay Hepatitis C antibody Lab Routine Missed menses Ordered: 07/02/2023 [facility] Comment on above: Ordered: 07/02/2023 HIV-1/HIV-2 antigen/antibody combination immunoassay HIV-1 and HIV-2 antibodies Lab Routine Missed menses Ordered: 07/02/2023 [facility] Comment on above: Ordered: 07/02/2023 Reagin Ab [Presence] in Serum by RPR RPR Lab Routine Missed menses Ordered: 07/02/2023 [facility] Comment on above: Ordered: 07/02/2023 Rubella antibody, IgG Rubella an tibody, IgG Lab Routine Missed menses Ordered: 07/02/2023 [facility] Comment on above: Ordered: 07/02/2023 Payers Date Payer Category Payer Medicaid [place] [id number] 2022-Present [address] [place] [address] [id number] 2022 Medicaid [id number] 2016 Unknown 2000 Unknown [id number] 2000 Unknown [id number] [id number] 2000 Unknown [id number] [id number] 2000 Unknown [id number] [id number] 2000 Unknown [id number] [id number] 2000 Unknown [id number] [id number] 2000 Unknown [id number] 2.16.840.1.527028.3.579.2.9 2000 Unknown [id number] 2.16.840.1.810843.3.579.2.9 2000 Unknown [id number] [id number] 1959 Unknown [id number] Social History Date Type Detail Facility Unknown if ever smoked [facility] Other Sex Assigned At Sex Assigned At [facility] Other Tobacco smoking stat [facility] Tobacco smoking consumption unknown [facility] Start: 2000 Sex Assigned At Female [facility] Start: 03-12-2023 Gender identity Identifies as female gender (finding) [facility] Start: 03-12-2023 Sexual orientation Heterosexual (finding) [facility] History of Present illness [...] or undercooked meat, and stay away from [facility]. Patient has also been advised to [...] nursing note reviewed. Exam conducted with a greenhouse florist present. Vitals: There is no height or [...] Jul, History of asthma (ICD-10 - Z87.09) [facility] Other Evaluation note Note Date & Type Note Facility Evaluation note Diagnosis Nausea and vomiting, unspecified vomiting type Missed menses documented in this encounter [facility] Evaluation note Note Date & Type Note Facility Evaluation note Diagnosis Missed menses Active asthma ([facility]) Unspecified asthma Upper respiratory tract infection, unspecified type documented in this encounter [facility] History general Narrative - Reported Note Date & Type Note Facility History general Narrative - Reported Type Medical History asthma Surgical History C section [facility] Other Summary Purpose Family History No Family History Records FoundNo Family History Records FoundNo Family History Records FoundNo Family History Records Found Advance Directives No Advanced Directives Records FoundNo Advanced Directives Records FoundNo Advanced Directives Records FoundNo Advanced Directives Records Found Additional Source Comments INFORMATION SOURCE (unrecogn ized section and content) DATE CREATED AUTHOR 11/17/2017 [facility] DATE CREATED AUTHOR AUTHOR'S ORGANIZ ATION 12/10/2021 [facility] DATE CREATED AUTHOR AUTHOR'S ORGANIZ ATION 11/21/2023 [facility] DATE CREATED AUTHOR AUTHOR'S ORGANIZ ATION 12/30/2023 [facility] dical Specialists EPIC REASON FOR [...] BE BASED ON THE PRIMARY CLINICAL RECORDS. [employer] provides no warranty or guarantee of the accuracy or completeness of information in this document.
== END 2024-01-12 19:29 | disposition home or self-care (01) ==
LOC: LAB 19:28
PROVIDERS: Visit Provider Obstetrics & Gynecology
DX: Z34.93 Encounter for supervision of normal pregnancy, unspecified, third trimester (principal)
CPT/HCPCS: 36415; 87081; 87150

== ENCOUNTER 2024-01-25 05:37 | Inpatient (IN) | payer MEDICAID, SELFPAY ==
[2024-01-25] VITALS (35 sets, daily range): BP systolic 99–196; BP diastolic 50–103; PULSE 70–86; TEMP 36.4–36.7; O2SAT 95–100
--- OUTSIDE RECORDS SUMMARY | 2024-01-25 05:41 | XMS_ITS ---
Author Name Auto Generated Organization OHIP Support Name Relationship Address Phone CHRISTOPHER KRUGER Next of [address] [address] + ~[phone] HERMELINDA, [place] [address] [phone] KRUGER, KORALYS Next of [address] [address] + ~[phone] HERMELINDA, [place] [address] [phone] KRUGER, KORALYS Next of [address] [address] + ~[phone] HERMELINDA, [place] [address] [phone] KRUGER, KORALYS Next of [address] [address] + ~[phone] HERMELINDA, [place] [address] [phone] WEARDON, ELIZA Next of [facility] Unknown [phone] KRUGER, KORALYS Next of [address] [address] + ~[phone] HERMELINDA, [place] [address] [phone] KRUGER, KORALYS Next of [address] [address] + ~[phone] ELIZA SHEN Next [place] [facility] [place] [address] [phone] CHRISTOPHER KRUGER Next of Fei [address] [place] [address], [place] [address] + ~[phone] ELIZA SHEN Next [place] [facility] [place] [address] [phone] CHRISTOPHER KRUGER Next of Fei [address] [place] [address], [place] [address] + ~([phone] ELIZA SHEN Next [place] [facility] [place] [address] [phone] CHRISTOPHER KRUGER Next of Fei [address] [place] [address], [place] [address] + ~([phone] ELIZA SHEN Next [place] [facility] [place] [address] [phone] Care Team Providers Care Tank Car Mechanic Name Role Phone MILE RING Attending Unavailable JHONATHAN, MILE Attending Unavailable DARYA, MANUEL Attending Unavailable JHONATHAN, MILE Attending Unavailable JHONATHAN, MILE Attending Unavailable DARYA, MANUEL Attending Unavailable JHONATHAN, MILE Attending Unavailable JHONATHAN, MILE Attending Unavailable JAMES KRUGER Attending Unavailable JHONATHANMILE JACKSON Primary Care Unavailable PROBLEMS DATE TYPE CONDITION / CODE ATTENDING STATUS ROLANDO [facility] 11/19/2023 Unknown Nausea with vomi ting, unspecified / R11.2(ICD-10) JAMES KRUGER Active [facility] l PROCEDURES No Procedure Records Found RESULTS CBC WITH DIFF Collected: 11/19/2023 7:37 PM Status: F Source: [facility] REPOSITORY TYPE CODE TESTS RESULT OUT OF RANGE REFERENCE UNITS LAB WBC(LOINC) WBC Count 8.5 3.5-11.3 k/uL LAB RBC(LOINC) RBC Count 3.88 Low 3.95-5.11 m/uL LAB HGB(LOINC) Hemoglobin 11.3 Low 11.9-15.1 g/dL LAB HCT(LOINC) Hematocrit 33.5 Low 36.3-47.1 % LAB MCV(LOINC) MCV 86.3 82.6-102.9 fL LAB MCH(LOINC) MCH 29.1 25.2-33.5 pg LAB MCHC(LOINC) MCHC 33.7 28.4-34.8 g/dL LAB RDW(LOINC) RDW 13.8 11.8-14.4 % LAB PLT(LOINC) Platelet Count 393 138-453 k/uL LAB MPVX(LOINC) MPV 9.7 8.1-13.5 fL LAB NRBCS(LOINC) NRBC Automated 0.0 0.0 per 100 WBC LAB SEG(LOINC) Neutrophil (Seg) 68 High 36-65 % LAB LYM(LOINC) Lymphocyte 24 24-43 % LAB MON(LOINC) Monocyte 7 3-12 % LAB EO(LOINC) Eosinophil 1 1-4 % LAB BASO(LOINC) Basophil 0 0-2 % LAB IGRAN(LOINC) Immature Granulocyte 0 0 % LAB ASEG(LOINC) Abs.Neutrophil (Seg) 5.75 1.50-8.10 k/uL LAB ALYM(LOINC) Abs. Lymph 2.05 1.10-3.70 k/uL LAB AMONO(LOINC) Abs. Monocyte 0.56 0.10-1.20 k/u L LAB AEO(LOINC) Abs. Eosinophil 0.07 0.00-0.44 k/u L LAB ABASO(LOINC) Abs. Basophil 0.03 0.00-0.20 k/u L LAB AIGRAN(LOINC) Abs.Imm.Granulo cyte <0.03 0.00-0.30 k/uL Performed By: #### LIP, CP, CDP #### [facility] [address] [place] [address] Housing Property Manager: Riley Cabrera MD COMP METABOLIC PROF Collected: 11/19/19 24 7:37 PM Status: F Source: [facility] REPOSITORY TYPE CODE TESTS RESULT OUT OF RANGE REFERENCE UNITS LAB NA(LOINC) NA (Sodium) 135 135-144 mmol/L LAB K(LOINC) K (Potassium) 3.3 Low 3.7-5.3 mmol/L LAB CL(LOINC) Chloride 102 98-107 mmol/L LAB HCO(LOINC) CO2 22 20-31 mmol/L LAB GAP(LOINC) Anion Gap 11 9-17 mmol/L LAB GLU(LOINC) Glucose 96 70-99 mg/dL LAB BUN(LOINC) BUN (Urea N) 9 6-20 mg/dL LAB CRE(LOINC) Creatinine 0.5 0.5-0.9 mg/dL LAB EGFR(LOINC) eGFR >90 >60 mL/min/1 .73m2 Result Comment: These results are not intended [...] following therapy that affects renal tubular secretion. LAB BUNCRE(LOINC) BUN/CRE Ratio 18 9-20 LAB CA(LOINC) Calcium 8.1 Low 8.6-10.4 mg/dL LAB TP(LOINC) Protein, Total 6.3 Low 6.4-8.3 g/dL LAB ALB(LOINC) Albumin 3.3 Low 3.5-5.2 g/dL LAB AG(LOINC) Albumin/Glob Ratio 1.1 1.0-2.5 LAB TBIL(LOINC) Bilirubin, Total 0.6 0.3-1.2 mg/dL LAB ALP(LOINC) Alkaline Phos 102 35-104 U/L LAB ALT(LOINC) ALT 14 5-33 U/L LAB AST(LOINC) AST 17 <32 U/L Performed By: #### LUKE HERNANDEZ, CDP #### [facility] [address] [place] [address] Housing Property Manager: Riley Cabrera MD LIPASE Collected: 4 7:37 PM Status: F Source: [facility] REPOSITORY TYPE CODE TESTS RESULT OUT OF RANGE REFERENCE UNITS LAB LIP(LOINC) Lipase 22 13-60 U/L Performed By: #### MARY CP, CDP #### [facility] [address] [place] [address] Housing Property Manager: Riley Cabrera MD UA W/REFLEX CULTURE Collected: 11/19/19 24 6:30 PM Status: F Source: [facility] REPOSITORY TYPE CODE TESTS RESULT OUT OF RANGE REFERENCE UNITS LAB UCO(LOINC) Color Yellow YEL LAB UTU(LOINC) Clarity, Urine Clear CLEAR LAB UGL(LOINC) Glucose,Semi- qnt,Ur NEGATIVE NEG mg/dL LAB UBI(LOINC) Bilirubin, SemiQt,Ur NEGATIVE NEG LAB UKE(LOINC) Ketones, Urine 1+ Abnormal NEG mg/dL LAB USG[facility] Spec. Mondamin,Ur >1.030 High 1.010-1.020 LAB UHB(LOINC) Blood, Urine NEGATIVE NEG LAB UPH([facility]) PH,Ur 6.0 5.0-9.0 LAB UPR(LOINC) Protein, Semi-qnt,Ur NEGATIVE NEG mg/dL LAB UUR([facility]) Urobilinogen, Ur Normal 0.0-1.0 EU/dL LAB UNI(LOINC) Nitrite,Ur NEGATIVE NEG LAB ULE([facility]) Leukocyte Esterase NEGATIVE NEG Performed By: #### CHARY U AX #### [facility] [address] [place] [address] [place] [address] Housing Property Manager: Riley Cabrera MD URINALYSIS,MICRO Collected: 4 6:30 PM Status: F Source: [facility] REPOSITORY TYPE CODE TESTS RESULT OUT OF RANGE REFERENCE UNITS LAB UWBC(LOINC) Urine WBC's None 0-5 /HPF LAB URBC(LOINC) Urine RBC's None 0-2 /HPF LAB MARTHA([facility]) Crystals 10 TO 20 Abnormal NONE /HPF Result Comment: CALCIUM OXAL ATE LAB EPITH(LOINC) Epithelial cells 0 TO 2 0-25 /HPF LAB BACT(LOINC) Bacteria 1+ Abnormal NONE Performed By: #### CHARY U AX #### [facility] [address] [place] [address] Housing Property Manager: Riley Cabrera MD ALLERGIES No Allergies Records Found ENCOUNTERS ADMIT/DISCHARGE ACCOUNT NUMBER ADMITTING ENCOUNTER CLASS LOCATION SOURCE 01/19/2024/ 4 [id number] Ambulatory Building:[facility] 01/12/2024/ 4 [id number] Ambulatory Building:[facility] 12/28/2023/ 4 [id number] Ambulatory Building:[facility] EPIC 11/29/2023/ 4 [id number] Ambulatory Building:[facility] EPIC 11/19/2023/ 4 [id number] Emergency Building:[facility] Room: 14Bed: [address] [place] [address] 11/15/2023/ 4 [id number] Ambulatory Building:[facility] EPIC 10/11/2023/ 4 [id number] Ambulatory Building:[facility] EPIC 08/23/2023/ 4 [id number] Ambulatory Building:[facility] EPIC 07/02/2023/ 4 [id number] Ambulatory Building:[facility] EPIC 06/22/2023/ 4 [id number] Ambulatory Building:[facility] EPIC PAYERS ENCOUNTER GUARANTOR PAYER SUBSCRIBER SOURCE [facility] [place] [place] [address]Sfk: (HP) Primary Insurance:[place]: [id number] Date:2022-06-24 [facility]: [id number] [place] [address] [facility] 01/12/2024 [facility] [place], [place] [address]Qnd: (HP) Primary Insurance:[place]: [id number] Date:2022-06-24 [facility]: [id number] [place] [address] [facility] EPIC 12/28/2023 [facility] [place], [place] [address]Erj: (HP) Primary Insurance:[facility] MEDICAID [place]: [id number] Date:2022-06-24 [facility] MOORFOOTDOB: [id number] [place] [address] [facility] EPIC 11/29/2023 [facility]OT[facility]: [place], [place] [address]Cnh: (HP) Primary Insurance:[place]: [id number] Date:2022-06-24 HOPE MOORFOOTDOB: [id number] [place] [address] [facility] EPIC 11/19/2023 [facility] [address] [address]Lbr: (HP) Primary Insurance:[place] MEDICAIDPolicy Number: [id number] Date:[id number] [address]AH: [facility]: [id number] [address]Zqi: (HP) [facility] 11/15/2023 HOPE MOORFOOTDOB: [place], [place] [address]Jky: (HP) Primary Insurance:[facility]ICAID [facility] Number: [id number] Date:2022-06-24 HOPE IAORFOOTDOB: [id number] [place] [address] [facility] EPIC 10/11/2023 [facility]: [place] [address]Neh: (HP) Primary Insurance:[place] [employer]: [id number] Date:2022-06-24 [facility]: [id number] [place] [address] [facility] EPIC 08/23/2023 [facility]OPE IAORFOOTDOB: [place], [place] [address]Jap: (HP) Primary Insurance:[place] Number: [id number] Date:2022-06-24 HOPE MOORFOOTDOB: [id number] [place] [address] [facility] EPIC 07/02/2023 [facility] [place], [place] [address]Tbj: (HP) Primary Insurance:[place] [employer] Number: [id number] Date:2022-06-24 [facility]: [id number] [place] [address] [facility] EPIC 06/22/2023 [facility] [place], [place] [address]Glt: (HP) Primary Insurance:[place] [employer] [place] Number: [id number] Date:2022-06-24 [facility]: [id number] [place] [address] [facility] EPIC
[2024-01-25] MEDS: 0.9 % SODIUM CHLORIDE 1,000 ML 1000 ML IV (06:21)
[2024-01-25] MEDS: METOCLOPRAMIDE HCL 10 MG/2 ML VIAL IVP (06:24)
[2024-01-25] MEDS: CITRIC ACID/SODIUM CITRATE 30 ML SOLUTION ORACIT SHOHL'S SOLN PO (06:24)
[2024-01-25] MEDS: FAMOTIDINE/PF 20 MG/2 ML VIAL IV (06:24)
[2024-01-25 06:25] LABS: Basophils Percent Auto 0.3 % (0.2-2.0); Eosinophils Absolute Auto 0.1 10^3/uL (0.0-0.7); Hematocrit 35.7 % (36.0-48.0); Hemoglobin 11.8 g/dL (12.0-16.0); Immature Granulocytes Abs Auto 0.01 10^3/uL (0.00-0.03); Immature Granulocytes Pct Auto 0.1 % (0.0-0.5); Lymphocytes Absolute Auto 2.7 10^3/uL (1.2-3.8); Lymphocytes Percent Auto 34.5 % (20.5-60.0); Mean Corpuscular HGB Conc 33.1 g/dL (29.9-35.2); Mean Corpuscular Volume 87.7 fL (81.0-99.0); Mean Platelet Volume 10.9 fL (9.5-13.5); Monocytes Absolute Auto 0.5 10^3/uL (0.3-0.8); Monocytes Percent Auto 6.8 % (1.7-12.0); Neutrophils Absolute Auto 4.5 10^3/uL (1.4-6.5); Neutrophils Percent Auto 57.3 % (43.0-75.0); Platelet Count 367 10^3/uL (150-450); Red Blood Count 4.07 10^6/uL (4.20-5.40); Red Cell Distribution Width 14.6 % (11.0-15.0); White Blood Count 7.8 10^3/uL (4.0-11.0)
[2024-01-25 06:27] LABS: Bilirubin Urine NEGATIVE (NEGATIVE); Blood Urine NEGATIVE (NEGATIVE); Clarity Urine CLEAR (CLEAR); Color Urine LT. YELLOW (YELLOW); Glucose Urine UA NEGATIVE (NEGATIVE); Ketones Urine NEGATIVE (NEGATIVE); Leukocyte Esterase Urine MODERATE (NEGATIVE); Nitrite Urine NEGATIVE (NEGATIVE); Protein Urine NEGATIVE (NEG/TRACE); Specific Gravity Urine 1.025 (1.005-1.025); Urobilinogen Urine 0.2 EU/dL (0.2-1.0)
[2024-01-25 06:33] LABS: RBC Urine 0-2 #/HPF (0-2)
[2024-01-25 06:34] LABS: Bacteria Urine MODERATE #/HPF (NONE SEEN); Cast Seen? NONE SEEN #/LPF (NONE SEEN); Crystals Seen? None Seen #/HPF (None Seen); Mucus Urine NONE SEEN (NONE SEEN); Squamous Epithelial Cell Urine FEW #/LPF (NONE/RARE); Urine Culture Indicated YES
[2024-01-25 06:37] LABS: Amphetamine Screen Urine NEGATIVE (NEGATIVE); Barbiturates Screen Urine NEGATIVE (NEGATIVE); Benzodiazepines Screen Urine NEGATIVE (NEGATIVE); Buprenorphine Screen Urine NEGATIVE (NEGATIVE); Cannabinoid Screen Urine NEGATIVE (NEGATIVE); Cocaine Screen Urine NEGATIVE (NEGATIVE); Methadone Screen Urine NEGATIVE (NEGATIVE); Methamphetamines Screen Urine NEGATIVE (NEGATIVE); Opiate Screen Urine NEGATIVE (NEGATIVE); Oxycodone Screen Urine NEGATIVE (NEGATIVE); Phencyclidine Screen Urine NEGATIVE (NEGATIVE); Tricyclic Antidepressant Urine NEGATIVE (NEGATIVE)
[2024-01-25] MEDS: 0.9 % SODIUM CHLORIDE 1,000 ML 125 ML IV ×2 (06:39→08:36)
[2024-01-25] MEDS: CEFAZOLIN SODIUM/DEXTROSE,ISO 2 GM/50 ML PIGGYBACK IV (07:35)
[2024-01-25] MEDS: LACTATED RINGER'S SOLUTION 1,000 ML 50 ML IV (08:13)
--- NOTE | 2024-01-25 08:36 | P.ON_ITS ---
Brief Operative Note Date of procedure: 01/25/24 Pre-op diagnosis general: iup at 39wks, previous c/s Post-op diagnosis: same as pre-op Procedure: NAME OF PROCEDURE: [ section ] PROCEDURE: Patient was taken back to the Operating Room where she was given a spinal anesthesia with Duramorph without difficulty. She was prepped and draped in the normal sterile fashion. A Pfannenstiel skin incision was then made 2 cm above the symphysis pubis and carried down to underlying rectus fascia using a Bovie. The fascia was incised in the midline and extended laterally using Sanders scissors. Two Prince clamps were placed on the superior aspect of the fascia and dissected off the underlying rectus muscles. The same was performed on the inferior aspect as well. The muscles were then in the midline. Peritoneum was identified and entered bluntly. The peritoneum was then extended superiorly and inferiorly with good visualization of the bladder. The bladder blade was inserted. A low transverse incision was made on the patient's uterus and extended laterally digitally. The was then delivered atraumatically after the bladder blade was removed in the cephalic position. The cord was clamped and cut. Cord blood was obtained. The was handed off to awaiting team. The patient's placenta was spontaneously delivered. The uterus was then exteriorized. The uterus was cleared of all clots and debris. The bladder blade was reinserted. The patient's uterine incision was closed using #0 Vicryl in a running lock fashion. Excellent hemostasis was assured. The uterus was then returned to the patient's abdomen. The patient's abdomen was copiously irrigated using warm saline. Peritoneal gutters were cleared of all clots and debris. Again excellent hemostasis was assured. The patient's peritoneum was closed using 3-0 Vicryl in a running fashion. The patient's fascia was closed using #0 Vicryl in a running fashion. The patient's skin was closed using 4-0 Vicryl subcuticularly. The patient tolerated the procedure well. Sponge, lap, and needle counts were correct x2. The patient was taken to the Recovery Room in stable condition. Anesthesia: spinal Surgeon: Ulysses De La Cruz Manager Of Financial Reporting: Jocelynn Oliveira Estimated blood loss (mL): 600 Pathology: none sent Condition: stable Disposition: floor Urinary Catheter Management Urinary Catheter Management Urethral: Cath placed during this visit: no
--- NOTE | 2024-01-25 08:37 | PM.OBPRCCS ---
Procedure Pre-op/Post-op diagnoses: Pre-Op/Post-Op Diagnoses Operation Date: 01/25/24 07:30 <No data on this case meets the specified criteria> Procedure: Procedures Operation Date: 01/25/24 07:30 Actual Procedure Side Surgeon p Repeat with delivery of viable baby girl Not Applicable Ulysses De La Cruz DO Preschool Assistant Director: Jocelynn Oliveira Estimated blood loss (mL): 600 Disposition: PACU Anesthesia type: Spinal
[2024-01-25] MEDS: OXYTOCIN/0.9 % SODIUM CHLORIDE 20 UNITS/1,000 ML PLAST..BAG 125 UNIT IV (09:33)
[2024-01-25] MEDS: KETOROLAC TROMETHAMINE 30 MG/ML VIAL IVP ×2 (15:11→21:01)
[2024-01-25] MEDS: CEFAZOLIN SODIUM/DEXTROSE,ISO 1 GM/50 ML PREMIX IV (15:11)
[2024-01-25] MEDS: ACETAMINOPHEN 500 MG TABLET 1000 MG PO (17:15)
[2024-01-25] MEDS: ENOXAPARIN SODIUM 40 MG/0.4 ML SYRINGE SUBQ (21:00)
[2024-01-26] MEDS: KETOROLAC TROMETHAMINE 30 MG/ML VIAL IVP (03:01)
[2024-01-26 03:27] VITALS: BP 109/76
[2024-01-26 05:49] LABS: Basophils Percent Auto 0.1 % (0.2-2.0); Hemoglobin 9.7 g/dL (12.0-16.0); Immature Granulocytes Abs Auto 0.07 10^3/uL (0.00-0.03); Immature Granulocytes Pct Auto 0.5 % (0.0-0.5); Lymphocytes Absolute Auto 2.4 10^3/uL (1.2-3.8); Lymphocytes Percent Auto 16.2 % (20.5-60.0); Mean Corpuscular HGB Conc 33.4 g/dL (29.9-35.2); Mean Corpuscular Hemoglobin 29.4 pg (26.7-34.0); Mean Corpuscular Volume 87.9 fL (81.0-99.0); Mean Platelet Volume 10.7 fL (9.5-13.5); Monocytes Absolute Auto 1.1 10^3/uL (0.3-0.8); Monocytes Percent Auto 7.4 % (1.7-12.0); Neutrophils Absolute Auto 11.1 10^3/uL (1.4-6.5); Neutrophils Percent Auto 75.8 % (43.0-75.0); Platelet Count 311 10^3/uL (150-450); Red Cell Distribution Width 14.7 % (11.0-15.0); White Blood Count 14.7 10^3/uL (4.0-11.0)
[2024-01-26] MEDS: ACETAMINOPHEN 500 MG TABLET 1000 MG PO ×3 (06:26→23:04)
--- NOTE | 2024-01-26 07:53 | P.OBPN_ITS ---
OB - PN: Subj Subjective Patient comments: no complaints and pain well controlled [place] status: doing well Exam Constitutional Vital Signs, click to edit/add: Last Vital Signs Temp 97.6 F 01/25/24 17:30 Pulse 70 01/25/24 17:30 Resp 14 01/25/24 23:00 BP 109/76 01/26/24 03:27 Pulse Ox 98 01/25/24 11:21 O2 Del Method Room Air 01/25/24 23:00 Documenting provider has reviewed patient's vital signs: yes Common normals: no apparent distress Respiratory Common normals: clear to auscultation bilaterally Cardio Common normals: regular rate and regular rhythm GI Common normals: Normal to inspection, nondistended, normoactive bowel sounds present Extremity Common normals: no pedal edema Results Labs Labs: Short CBC 01/26/24 Range/Units 05:36 WBC 14.7 H (4.0-11.0) 10^3/uL Hgb 9.7 L (12.0-16.0) g/dL Hct 29.0 L (36.0-48.0) % Plt Count 311 (150-450) 10^3/uL Urinary Catheter Management Urinary Catheter Management Urethral: Cath placed during this visit: no OB - PN: A/P Plan - day: 1 Plan: routine postop care Time Spent with Patient Time: Total time spent is greater than 50% in coordination of care (as documented) at patient's floor/unit and/or counseling patient: Total time spent with greater than 50% in coordination of care (as documented) at patient's floor/unit and/or counseling patient: less than 15 minutes
[2024-01-26 08:42] VITALS: BP 123/71; PULSE 51
[2024-01-26] MEDS: DOCUSATE SODIUM 100 MG CAPSULE PO ×2 (08:47→21:03)
[2024-01-26] MEDS: IBUPROFEN 400 MG TABLET 800 MG PO ×2 (08:47→17:27)
[2024-01-26] MEDS: OXYCODONE HCL 5 MG TABLET PO ×3 (09:43→19:47)
[2024-01-26] MEDS: ONDANSETRON 4 MG RAPDIS TABLET PO (09:46)
[2024-01-26 17:29] VITALS: BP 125/74; PULSE 71
[2024-01-26 17:45] VITALS: TEMP 36.7
[2024-01-26 18:07] VITALS: O2SAT 98
[2024-01-26 19:40] VITALS: BP 124/70; PULSE 69; TEMP 36.7
[2024-01-26] MEDS: ENOXAPARIN SODIUM 40 MG/0.4 ML SYRINGE SUBQ (21:02)
[2024-01-27] VITALS (8 sets, daily range): BP systolic 116–154; BP diastolic 73–89; PULSE 54–78; TEMP 36.6–37.1
[2024-01-27] MEDS: IBUPROFEN 400 MG TABLET 800 MG PO ×4 (00:12→17:44)
[2024-01-27] MEDS: ACETAMINOPHEN 500 MG TABLET 1000 MG PO ×3 (06:12→22:13)
[2024-01-27] MEDS: DOCUSATE SODIUM 100 MG CAPSULE PO ×2 (08:11→20:33)
--- NOTE | 2024-01-27 08:14 | P.OBPN_ITS ---
OB - PN: Subj Subjective Patient comments: no complaints [place] status: doing well feeding status: exclusively bottle feeding Exam Constitutional Vital Signs, click to edit/add: Last Vital Signs Temp 98.7 F 01/27/24 00:13 Pulse 67 01/27/24 08:13 Resp 14 01/27/24 00:13 BP 140/85 01/27/24 08:13 Pulse Ox 98 01/26/24 18:07 O2 Del Method Room Air 01/27/24 00:19 Documenting provider has reviewed patient's vital signs: yes Common normals: no apparent distress, average body habitus, oriented x3, no limitations, healthy appearing, alert and well nourished General appearance: cooperative, comfortable and well kempt Orientation/consciousness: Yes awake, Yes oriented to person, Yes oriented to place and Yes oriented to time HENMT Common normals: normocephalic Eye Common normals: EOMs intact bilaterally Neck & C-Spine Common normals: full ROM General: normal visual inspection Lymph Lymphatic: no lymphadenopathy noted Chest Common normals: inspection of chest normal Respiratory Common normals: normal respiratory effort, no retractions, no use of accessory muscles and clear to auscultation bilaterally Effort & inspection: able to speak in complete sentences Auscultation: clear to auscultation bilaterally Cardio Common normals: regular rate and regular rhythm Rate: regular rate Rhythm: regular rhythm GI Common normals: Normal to inspection, nondistended, normoactive bowel sounds present Inspection: normal to inspection Auscultation: normoactive bowel sounds Palpation: soft Percussion: normal to percussion Common normals: no CVA tenderness Back & Pelvis Common normals: no CVA tenderness Extremity Common normals: normal to inspection and full ROM Neuro Common normals: oriented x3 Sensorium/orientation: awake, alert, oriented to person, oriented to place and oriented to time Psych Attitude: calm Urinary Catheter Management Urinary Catheter Management Urethral: Cath placed during this visit: no OB - PN: A/P Plan - day: 2 Plan: routine postop care Time Spent with Patient Time: Total time spent is greater than 50% in coordination of care (as documented) at patient's floor/unit and/or counseling patient: Total time spent with greater than 50% in coordination of care (as documented) at patient's floor/unit and/or counseling patient: less than 15 minutes
[2024-01-27] MEDS: OXYCODONE HCL 5 MG TABLET PO (08:29)
--- NOTE | 2024-01-27 09:22 | PC.NURSE ---
Bilateral breast tissue firm to palpation. Mother has not pumped since last night.
--- NOTE | 2024-01-27 09:24 | PC.NURSE ---
Dizziness offers on occasion with ambulation. Pt reminded to change positions slowly and to call RN with assistance if needed for ambulation.
--- NOTE | 2024-01-27 09:41 | PC.NURSE ---
Bilateral breast firm to palpation.
--- NOTE | 2024-01-27 19:16 | W.PC.ACHO ---
Registration Status: ADM IN Primary Language: Mexican Preferred Language: Mexican Report given at 1900. Care relinquished. Active Medications Generic Name Dose Route Start Last Admin Trade Name Freq PRN Reason Stop Dose Admin Al Hydroxide/Mg Hydroxide 2,400 mg 01/25/24 08:37 Magnesium Hydroxide 2,400 Mg/10 Ml Oral.Susp PO Q6H PRN Dyspepsia Docusate Sodium 100 mg 01/26/24 09:00 01/27/24 08:11 Docusate Sodium 100 Mg Capsule PO 100 mg BID DALJIT Administration Enoxaparin Sodium 40 mg 01/25/24 20:00 01/26/24 21:02 Enoxaparin Sodium 40 Mg/0.4 Ml Syringe SUBQ 40 mg Q24H DALJIT Administration Sodium Chloride 1,000 mls @ 125 mls/hr 01/25/24 06:00 01/25/24 08:36 Sodium Chloride 0.9% 1,000 Ml IV 125 mls/hr .Q8H DALJIT Administration Lactated Ringer's 1,000 mls @ 125 mls/hr 01/25/24 09:00 Lactated Ringers IV .Q8H DALJIT Promethazine HCl 25 mg/ Sodium 51 mls @ 204 mls/hr 01/25/24 08:37 Chloride IV Q6H PRN Nausea And Vomiting Ibuprofen 800 mg 01/26/24 09:00 01/27/24 17:44 Ibuprofen 400 Mg Tablet PO 800 mg Q6H DALJIT Administration Ondansetron HCl 4 mg 01/25/24 08:37 Ondansetron Pf 4 Mg/2 Ml Vial IV Q6H PRN Nausea And Vomiting Ondansetron HCl 4 mg 01/25/24 08:37 01/26/24 09:46 Ondansetron 4 Mg Rapdis Tablet PO 4 mg Q6H PRN Administration Nausea And Vomiting Oxycodone HCl 5 mg 01/25/24 08:37 01/27/24 08:29 Oxycodone Hcl 5 Mg Tablet PO 5 mg Q4H PRN Administration Breakthrough Pain Senna 17.2 mg 01/25/24 20:00 Sennosides 8.6 Mg Tablet PO QHS PRN Constipation Simethicone 80 mg 01/25/24 08:37 Simethicone 80 Mg Tab.Chew PO QID PRN Abdominal Distention Respiratory Oxygen Delivery Method Room Air Oxygen Delivery Method Room Air Oxygen Delivery Method Room Air Oxygen Delivery Method Room Air Bowels Bowel Pattern No Bowel Movement Bowel Pattern No Bowel Movement Bowel Pattern No Bowel Movement Renal Bladder Pattern Continent Bladder Pattern Continent
[2024-01-27] MEDS: ENOXAPARIN SODIUM 40 MG/0.4 ML SYRINGE SUBQ (20:33)
[2024-01-28] VITALS (23 sets, daily range): BP systolic 102–193; BP diastolic 59–99; PULSE 54–90; TEMP 36.2–36.7; O2SAT 100
[2024-01-28] MEDS: IBUPROFEN 400 MG TABLET 800 MG PO ×4 (00:16→18:32)
[2024-01-28] MEDS: ACETAMINOPHEN 500 MG TABLET 1000 MG PO ×2 (06:02→14:34)
--- NOTE | 2024-01-28 07:42 | P.OBPN_ITS ---
OB - PN: Subj Subjective Patient comments: no complaints and pain well controlled [place] status: doing well Exam Constitutional Vital Signs, click to edit/add: Last Vital Signs Temp 98.1 F 01/28/24 00:12 Pulse 71 01/28/24 00:12 Resp 14 01/28/24 00:12 BP 131/77 01/28/24 00:12 Pulse Ox 98 01/26/24 18:07 O2 Del Method Room Air 01/28/24 00:10 Documenting provider has reviewed patient's vital signs: yes Common normals: no apparent distress Respiratory Common normals: clear to auscultation bilaterally Cardio Common normals: regular rate and regular rhythm GI Common normals: Normal to inspection, nondistended, normoactive bowel sounds present Extremity Common normals: no calf tenderness Urinary Catheter Management Urinary Catheter Management Urethral: Cath placed during this visit: no OB - PN: A/P Plan - day: 3 Plan: routine postop care, discharge home and other (fu 1wk) Time Spent with Patient Time: Total time spent is greater than 50% in coordination of care (as documented) at patient's floor/unit and/or counseling patient: Total time spent with greater than 50% in coordination of care (as documented) at patient's floor/unit and/or counseling patient: less than 15 minutes
[2024-01-28] MEDS: OXYCODONE HCL 5 MG TABLET PO ×3 (09:33→22:25)
[2024-01-28] MEDS: DOCUSATE SODIUM 100 MG CAPSULE PO ×2 (09:34→20:33)
[2024-01-28] MEDS: MAGNESIUM-BOLUS FROM THE BAG- 40 GM/1,000 ML IV.SOLN IV (12:00)
[2024-01-28] MEDS: 0.9 % SODIUM CHLORIDE 1,000 ML 50 ML IV (12:00)
[2024-01-28] MEDS: MAGNESIUM SULFATE IN WATER 40 GM/1,000 ML IV.SOLN IV (12:24)
[2024-01-28 12:39] LABS: Hemoglobin 12.1 g/dL (12.0-16.0); Mean Corpuscular HGB Conc 32.7 g/dL (29.9-35.2); Mean Corpuscular Hemoglobin 28.5 pg (26.7-34.0); Mean Corpuscular Volume 87.3 fL (81.0-99.0); Mean Platelet Volume 10.2 fL (9.5-13.5); Platelet Count 399 10^3/uL (150-450); Red Blood Count 4.24 10^6/uL (4.20-5.40); Red Cell Distribution Width 14.6 % (11.0-15.0); White Blood Count 8.5 10^3/uL (4.0-11.0)
[2024-01-28 12:52] LABS: Alanine Aminotransferase 39 U/L (14-59); Estimated GFR (African America >60 (>=60); Estimated GFR (Non-African Ame >60 (>=60); Uric Acid 6.2 mg/dL (2.6-6.0)
[2024-01-28 12:58] LABS: Aspartate Amino Transferase 64 U/L (15-37); Band Neutrophils Absolute 0.1 10^3/uL (0.0-0.3); Lymphocytes Absolute Manual 1.95 10^3/uL (1.20-3.80); Monocytes Absolute Manual 0.68 10^3/uL (0.30-0.80); Segmented Neut Absolute Manual 5.61 10^3/uL (1.4-6.5)
[2024-01-28 12:59] LABS: Eosinophils Absolute Manual 0.17 10^3/uL (0.00-0.70)
[2024-01-28 13:00] LABS: Partial Thromboplastin Time 25.4 sec (22.3-36.2); Prothrombin Time 9.6 sec (9.0-11.6)
[2024-01-28 13:01] LABS: INR <0.93
[2024-01-28 13:09] LABS: Fibrinogen 573 mg/dL (200-400)
[2024-01-28] MEDS: ENOXAPARIN SODIUM 40 MG/0.4 ML SYRINGE SUBQ (20:33)
[2024-01-29] VITALS (7 sets, daily range): BP systolic 120–144; BP diastolic 80–92; PULSE 65–78; TEMP 35.9–36.6
--- NOTE | 2024-01-29 00:21 | PC.NURSE ---
0000- Patient declines taking Ambien. States she will try to just fall asleep and will take the motrin when due next.
[2024-01-29] MEDS: IBUPROFEN 400 MG TABLET 800 MG PO ×3 (00:53→13:42)
[2024-01-29] MEDS: ACETAMINOPHEN 500 MG TABLET 1000 MG PO ×2 (04:54→13:42)
[2024-01-29] MEDS: 0.9 % SODIUM CHLORIDE 1,000 ML 50 ML IV (06:48)
[2024-01-29] MEDS: MAGNESIUM SULFATE IN WATER 40 GM/1,000 ML IV.SOLN IV (06:49)
[2024-01-29] MEDS: DOCUSATE SODIUM 100 MG CAPSULE PO (08:15)
--- NOTE | 2024-01-29 09:19 | PM.OBPN ---
OB - PN: Subj Subjective Patient comments: pain well controlled and tolerating diet [place] status: doing well Exam Constitutional Vital Signs, click to edit/add: Last Vital Signs Temp 96.9 F L 01/29/24 06:34 Pulse 69 01/29/24 06:34 Resp 16 01/29/24 06:34 BP 120/80 01/29/24 06:34 Pulse Ox 100 01/28/24 22:48 O2 Del Method Room Air 01/29/24 03:00 Documenting provider has reviewed patient's vital signs: yes Common normals: no apparent distress Respiratory Common normals: normal respiratory effort and clear to auscultation bilaterally Cardio Common normals: regular rate and regular rhythm GI Common normals: Normal to inspection, nondistended, normoactive bowel sounds present Extremity Common normals: no calf tenderness Results Labs Labs: Short CBC 01/28/24 Range/Units 11:45 WBC 8.5 (4.0-11.0) 10^3/uL Hgb 12.1 (12.0-16.0) g/dL Hct 37.0 (36.0-48.0) % Plt Count 399 (150-450) 10^3/uL BMP 01/28/24 11:45 BUN 11.0 Creatinine 0.65 Liver Function 01/28/24 Range/Units 11:45 AST 64 H (15-37) U/L ALT 39 (14-59) U/L Urinary Catheter Management Urinary Catheter Management Urethral: Cath placed during this visit: no OB - PN: A/P Assessment and Plan (1) Preeclampsia in period: Assessment and Plan: dc mag, labs reviewed, start labetalol, dc home later today, precautions given, rx on chart Plan - day: 4 Plan: routine postop care, discharge home and other (fu 1wk) Time Spent with Patient Time: Total time spent is greater than 50% in coordination of care (as documented) at patient's floor/unit and/or counseling patient: Total time spent with greater than 50% in coordination of care (as documented) at patient's floor/unit and/or counseling patient: less than 15 minutes
[2024-01-29] MEDS: LABETALOL HCL 100 MG TABLET PO (10:25)
[2024-01-29] MEDS: ONDANSETRON 4 MG RAPDIS TABLET PO (10:31)
[2024-01-29] MEDS: OXYCODONE HCL 5 MG TABLET PO (11:57)
== END 2024-01-29 17:30 | disposition home or self-care (01) | DRG 540 ==
PROVIDERS: Admitting Provider Obstetrics & Gynecology; Visit Provider Obstetrics & Gynecology
PROC: 10D00Z1 Extraction of Products of Conception, Low, Open Approach (ICD-10-PCS; CPT 59514; principal; 2024-01-25 07:30)
DX: O34.211 Maternal care for low transverse scar from previous cesarean delivery (principal); Z3A.39 39 weeks gestation of pregnancy; Z37.0 Single live birth; O14.95 Unspecified pre-eclampsia, complicating the puerperium; Z87.891 Personal history of nicotine dependence
CPT/HCPCS: 36415; 59050; 80307; 81001; 82565; 84450; 84460; 84520; 84550; 85007; 85025; 85027; 85384; 85610; 85730; 86850; 86900; 86901; 87086; 94667; 94668; 96365; 96366; 96372; 96375; 96376; J0131; J0665; J0690; J1100; J1650; J1885; J2274; J2371; J2405; J2590; J2765; J3475; Q0162

== ENCOUNTER 2024-09-11 18:29 | Emergency (ER) | payer MEDICAID, SELFPAY ==
[2024-09-11 18:37] VITALS: BP 129/88; PULSE 102; TEMP 36.8; O2SAT 97; BMI 26.5
--- NOTE | 2024-09-11 19:19 | ED_ITS ---
HPI HPI - General Adult General Chief complaint: Headache Stated complaint: MIGRAINE Time Seen by Provider: 09/11/24 18:44 Source: patient Mode of arrival: walk-in History of Present Illness HPI narrative: Patient is a 24-year-old female presents to the ER for evaluation of migraine headaches. She is 7 months intermittently breast-feeds with supplements of formula. States she suffers from headaches daily, she is currently living with family as her baby's father is establishing a new job. Patient denies any chest pain or shortness of breath, states she is getting less sleep with breast-feeding at night notes pain radiating from her neck into the occipital region like she has had with prior migraines patient feels they may be tension related. She reports having a MRI in the past and being on migraine medication but has not been on this since before her . She sees the local health department for care but has not been there recently to discuss her concerns. Patient states she vomited earlier in the week but nothing today she does get nauseous, photophobia and phonophobia with symptoms. She denies feeling depressed but admits to feeling tired. Patient appears in no distress at bedside. 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 Patient denies any fever or illness. Pain is moderate. Patient has been trying to take Excedrin migraine but got no relief. Onset (ago): day(s) Location: Reports head Radiation: Reports non-radiation Severity: moderate Quality: Reports aching Pain Consistency: Reports intermittent Related Data Home Medications ?Medication ?Instructions ?Recorded ?Confirmed albuterol sulfate 90 mcg/actuation 2 puff inhalation Q6H PRN 01/11/23 10/25/23 aerosol inhaler (Ventolin HFA) shortness of breath or wheezing polysaccharide iron complex 180 mg 180 mg PO DAILY 10/25/23 10/25/23 iron capsule (Pro Fe) vitamin with calcium 1 tab PO DAILY 10/25/23 10/25/23 no.72-iron 27 mg-folic acid 1 mg tablet (WesTab Plus) Previous Rx's ?Medication ?Instructions ?Recorded docusate sodium 100 mg capsule 100 mg PO BID #60 caps 01/27/24 ibuprofen 800 mg tablet 800 mg PO Q8H PRN Moderate Pain 01/27/24 #30 tabs oxycodone-acetaminophen 5 mg-325 1 tab PO Q8H PRN pain #15 tabs 01/27/24 mg tablet (Percocet) ibuprofen 800 mg tablet 800 mg PO Q8H PRN pain 14 days #40 01/28/24 tabs oxycodone-acetaminophen 5 mg-325 1 tab PO Q6H PRN pain 7 days #28 01/28/24 mg tablet (Percocet) tabs labetalol 100 mg tablet 100 mg PO BID #60 tabs 01/29/24 metoclopramide HCl 5 mg tablet 5 mg PO Q8H PRN nausea and 09/11/24 (Reglan) vomiting 3 days #9 tabs Allergies Allergy/AdvReac Type Severity Reaction Status Date / Time No Known Drug Allergies Allergy Verified 01/11/23 23:37 Opioid HPI Opioid Management Most Recent Opioid Data: Last Pain Scale 8 09/11/24 19:29 09/11/24 Last JUL Pain Assessment 09/11/24 19:29 Ur Phencyclidine Scrn Negative (NEGATIVE) 01/25/24 05:50 09/0 08/14 Review of Systems ROS Constitutional Denies: fever or chills Eyes Reports: light sensitivity; Denies: change in vision, blurry vision, blind spots, eye discomfort or seeing flashes Ears, nose, mouth, and throat Denies: throat pain, neck pain or throat swelling Cardiovascular Denies: chest pain or palpitations Respiratory Denies: shortness of breath, cough or wheezing Gastrointestinal Reports: nausea; Denies: abdominal pain Genitourinary Denies: painful urination or urinary frequency Musculoskeletal Denies: back pain, neck pain, extremity pain or extremity swelling Integumentary/Breast Denies: rash, itching, redness or skin pain Neurological Reports: headache and other (felt near syncopal earlier today, better now. ); Denies: numbness in extremities, weakness in extremities, lack of coordination, dizziness, difficulty communicating thoughts or involuntary movements Psychiatric Reports: change in sleep pattern; Denies: anxiety or mood swings Endocrine Denies: excessive urination Hematologic/Lymphatic Denies: easy bruising Allergic/Immunologic Denies: hives [facility] Medical History (Updated 09/11/24 @ 19:42 by SRAVANTHI Dorado) History of eclampsia ?Z87.59 - Personal history of other complications of , childbirth and the puerperium (ICD-10) Surgical History (Updated 01/25/24 @ 06:38 by Janice Smart) History of ?Z98.891 - History of uterine scar from previous surgery (ICD-10) Social History Smoking status: Never smoker Highest level of school completed/degree received: high school graduate Little interest or pleasure in doing things: not at all Feeling down, depressed, or hopeless: not at all Exam Narrative Exam Narrative: Vital signs and nurses notes reviewed. The patient is not hypoxic. General: The patient appears well and in no apparent distress. Patient is rest ing comfortably on cart. Skin: Warm, dry, no pallor noted. The patient has no evidence of rash, petechiae, or purpura noted. Head: Normocephalic, atraumatic, no temporal arterial tenderness Neck: Supple, trachea mid-line, no tenderness, no lymphadenopathy. No meningeal signs. No nuchal rigidity. Eye: Pupils are equal, round and reactive to light, EOMI Ears, Nose, Mouth, and Throat: Oral mucosa is moist, TMs are clear bilaterally, no hemotympanum noted. Cardiovascular: Regular Rate and Rhythm Respiratory: Patient is in no distress, no accessory muscle use, lungs are clear to auscultation, no wheezing, rales or rhonchi Back: non-tender, no CVA tenderness Musculoskeletal: normal ROM, no tenderness, no swelling, normal strength 5/5. Normal pulses to radial 2+ bilaterally and 2+ at DP and PT bilaterally and symmetrically. GI: Normal bowel sounds, no tenderness to palpation, no masses appreciated. No rebound, guarding, or rigidity noted. Neurological: A&O x4, normal equal sugar refiner strength,The patient is not ataxic. The patient has normal speech. The patient has normal coordination. Patient sitting at bedside entertaining her 7-month-old , also feeding 7-month-old a bottle with no distress. Normal motor and sensory observed. Psychiatric: Cooperative Constitutional Vital Signs, click to edit/add: Last Vital Signs Temp 98.2 F 09/11/24 18:37 Pulse 71 09/11/24 19:37 Resp 16 09/11/24 19:37 BP 129/88 09/11/24 18:37 Pulse Ox 98 09/11/24 19:37 O2 Del Method Room Air 09/11/24 19:37 Course Vital Signs Vital signs: Vital Signs Temperature 98.2 F 09/11/24 18:37 Pulse Rate 102 H 09/11/24 18:37 Respiratory Rate 18 09/11/24 18:37 Blood Pressure 129/88 09/11/24 18:37 Pulse Oximetry 97 09/11/24 18:37 Oxygen Delivery Method Room Air 09/11/24 18:37 Temperature 98.2 F 09/11/24 18:37 Pulse Rate 71 09/11/24 19:37 Respiratory Rate 16 09/11/24 19:37 Blood Pressure 129/88 09/11/24 18:37 Pulse Oximetry 98 09/11/24 19:37 Oxygen Delivery Method Room Air 09/11/24 19:37 Medical Decision Making MDM Narrative Medical decision making narrative: Patient presents with concerns of migraine headache states she has headaches daily notes difficulty with sleep with at times which may be a trigger and that she has been off her migraine medication for over a year. She reports having extensive evaluation in the past including MRI and neurology evaluation. She is currently bouncing between homes as her spouses securing new employment and they are living with family. She denies any fevers or chills she denies any dysuria. She was offered to have a IV placed here for fluids and IV medications, also remove the crying child from the room. Patient declined stating that she would not be able to rest knowing that her child was not with her and did not want to stay in the ER. She was agreeable to IM and p.o. medications and she will go home. Her spouse is with her to watch the baby at home as we discussed she may be tired and needing sleep. She was able to drink p.o. Gatorade here for fluids and she will be given a short prescription of Reglan 5 mg to aid her in her headache symptoms and nausea. Should any symptoms worsen or new symptoms develop she may return to the ER for reevaluation. Pt is not hypertensive and is far out from initial post period but history of migraine chronically. The patient is to followup with primary care physician in next 2-3 days or to return to the emergency department should any of the signs or symptoms worsen or new symptoms develop. Patient had questions answered. The patient agrees with t he following Diagnosis and Treatment plan and the patient will be discharged home. Discharge Plan Discharge Chief Complaint: Headache Clinical Impression: Cephalalgia, Migraine Patient Disposition: Home, Self-Care Time of Disposition Decision: 19:20 Condition: Good Prescriptions / Home Meds: New metoclopramide HCl [Reglan] 5 mg tablet 5 mg PO Q8H PRN (Reason: nausea and vomiting) 3 Days Qty: 9 0RF No Action albuterol sulfate [Ventolin HFA] 90 mcg/actuation HFA aerosol inhaler 2 puff INHALATION Q6H PRN (Reason: shortness of breath or wheezing) docusate sodium 100 mg Capsule 100 mg PO BID Qty: 60 0RF oxycodone-acetaminophen [Percocet] 5-325 mg tablet 1 tab PO Q8H PRN (Reason: pain) Qty: 15 0RF ibuprofen 800 mg tablet 800 mg PO Q8H PRN (Reason: Moderate Pain) Qty: 30 1RF ibuprofen 800 mg tablet 800 mg PO Q8H PRN (Reason: pain) 14 Days Qty: 40 0RF oxycodone-acetaminophen [Percocet] 5-325 mg tablet 1 tab PO Q6H PRN (Reason: pain) 7 Days Qty: 28 0RF labetalol 100 mg tablet 100 mg PO BID Qty: 60 1RF Pro Fe 180 mg iron capsule 180 mg PO DAILY WesTab Plus 27 mg iron- 1 mg tablet 1 tab PO DAILY Print Language: Cymraes Instructions: Migraine Headache (ED) Referrals: [facility] [Primary Care Provider] - 1 week Discharge Date/Time: 09/11/24 19:40
[2024-09-11] MEDS: METOCLOPRAMIDE HCL 10 MG TABLET PO (19:27)
[2024-09-11] MEDS: DIPHENHYDRAMINE HCL 25 MG CAPSULE 50 MG PO (19:27)
[2024-09-11] MEDS: KETOROLAC TROMETHAMINE 60 MG/2 ML VIAL IM (19:29)
[2024-09-11 19:37] VITALS: PULSE 71; O2SAT 98
== END 2024-09-11 19:40 | disposition home or self-care (01) ==
PROVIDERS: Emergency Provider Emergency Medicine
DX: G43.909 Migraine, unspecified, not intractable, without status migrainosus (principal)
CPT/HCPCS: 96372; 99284; J1885